=== PATIENT | male | born 1945 | race Caucasian/White ===

== ENCOUNTER → 2020-07-10 11:01 | Outpatient (BNVA) | payer MEDICARE, SELFPAY | PROVIDERS: PCP Internal Medicine; Referring Provider Internal Medicine; Visit Provider Internal Medicine | DX: I48.0 Paroxysmal atrial fibrillation (principal); Z51.81 Encounter for therapeutic drug level monitoring; Z79.01 Long term (current) use of anticoagulants | CPT/HCPCS: 85610; 99211 ==

== ENCOUNTER → 2020-07-31 10:59 | Outpatient (BNVA) | payer MEDICARE, SELFPAY | PROVIDERS: PCP Internal Medicine; Visit Provider Internal Medicine | DX: I48.0 Paroxysmal atrial fibrillation (principal); Z51.81 Encounter for therapeutic drug level monitoring; Z79.01 Long term (current) use of anticoagulants | CPT/HCPCS: 85610; 99211 ==

== ENCOUNTER → 2020-08-15 10:48 | Outpatient (BNVA) | payer MEDICARE, SELFPAY | PROVIDERS: PCP Internal Medicine; Referring Provider Internal Medicine; Visit Provider Internal Medicine | DX: I48.0 Paroxysmal atrial fibrillation (principal); Z79.01 Long term (current) use of anticoagulants; Z51.81 Encounter for therapeutic drug level monitoring | CPT/HCPCS: 85610 ==

== ENCOUNTER → 2020-08-29 10:56 | Outpatient (BNVA) | payer MEDICARE, SELFPAY | PROVIDERS: PCP Internal Medicine; Visit Provider Internal Medicine | DX: I48.0 Paroxysmal atrial fibrillation (principal); Z51.81 Encounter for therapeutic drug level monitoring; Z79.01 Long term (current) use of anticoagulants | CPT/HCPCS: 85610; 99211 ==

== ENCOUNTER 2020-09-11 09:01 | Outpatient (REF) | payer MEDICARE, SELFPAY ==
--- NOTE | 2020-09-11 | US_ITS ---
EXAMINATION: US ABDOMINAL AORTIC CLINICAL INFORMATION: Abdominal aortic aneurysm COMPARISON: CTA abdomen and pelvis on 08/27/2019 TECHNIQUE: Real-time ultrasound and Doppler techniques (integrating B-mode 2-D vascular images, Doppler spectral analysis and color flow Doppler imaging) were utilized to interrogate the abdominal aorta. FINDINGS: Proximal aorta: 2.9 cm AP; 3.2 cm transverse. Middle aorta: 2.1 cm AP; 2.3 cm transverse. Distal aorta: 4.1 cm AP; 4.6 cm transverse. Right common iliac artery: 1.4 x 1.5 cm. Left common iliac artery: 1. 6 x 1.8 cm ADDITIONAL FINDINGS: There is moderate atherosclerotic disease of the abdominal aorta. US/US abdominal aortic aneurysm IMPRESSION: Infrarenal abdominal aortic aneurysm measuring up to 4.6 cm. The aneurysm appears increased in size when compared to the prior CTA, however this may be due to differences in technique. Recommend CTA or MRA for further evaluation. Urgent findings were related to the referring office.
== END 2020-09-11 09:02 | disposition home or self-care (01) ==
LOC: HO.US 09:01
PROVIDERS: PCP Internal Medicine; Visit Provider Surgery Vascular Surgery
DX: I71.4 Abdominal aortic aneurysm, without rupture (principal)
CPT/HCPCS: 76706

== ENCOUNTER → 2020-09-18 10:51 | Outpatient (BNVA) | payer MEDICARE, SELFPAY | PROVIDERS: PCP Internal Medicine; Referring Provider Internal Medicine; Visit Provider Surgery Vascular Surgery | DX: I71.4 Abdominal aortic aneurysm, without rupture (principal) | CPT/HCPCS: Q3014 ==

== ENCOUNTER → 2020-09-26 14:15 | Outpatient (BNVA) | payer MEDICARE, SELFPAY | PROVIDERS: PCP Internal Medicine; Visit Provider Internal Medicine | DX: I48.0 Paroxysmal atrial fibrillation (principal); Z51.81 Encounter for therapeutic drug level monitoring; Z79.01 Long term (current) use of anticoagulants | CPT/HCPCS: 85610; 99211 ==

== ENCOUNTER → 2021-02-12 10:50 | Outpatient (BNVA) | payer MEDICARE, SELFPAY | PROVIDERS: PCP Internal Medicine; Visit Provider Internal Medicine | DX: I48.0 Paroxysmal atrial fibrillation (principal); Z79.01 Long term (current) use of anticoagulants; Z51.81 Encounter for therapeutic drug level monitoring | CPT/HCPCS: 85610; 99211 ==

== ENCOUNTER → 2021-03-26 10:49 | Outpatient (BNVA) | payer MEDICARE, SELFPAY | PROVIDERS: PCP Internal Medicine; Visit Provider Internal Medicine | DX: I48.0 Paroxysmal atrial fibrillation (principal); Z51.81 Encounter for therapeutic drug level monitoring; Z79.01 Long term (current) use of anticoagulants | CPT/HCPCS: 85610; 99211 ==

== ENCOUNTER 2021-03-31 09:50 | Outpatient (REF) | payer MEDICARE, SELFPAY ==
--- NOTE | ~2021-03-31 | US_ITS ---
EXAMINATION: US RETROPERITONEAL LIMITED (AORTA) CLINICAL INFORMATION: EXAMINATION: US RETROPERITONEAL LIMITED (AORTA) CLINICAL INFORMATION: Abdominal aortic aneurysm without rupture. COMPARISON: Ultrasound aorta 09/11/2020. TECHNIQUE: Adams-scale, color Doppler and spectral Doppler evaluation of the abdominal aorta. FINDINGS: The proximal abdominal Limited evaluation. The measurements of the aorta in maximum AP and transverse dimensions respectively are as follows: Proximal: 2.8 cm (AP). Mid: 2.9 x 2.1 cm. Distal: 4.1 x 4.1 cm. Previous 4.1 x 4.6 cm. PSV: 41.0 cm/sec. The measurements of the common iliac arteries in maximum dimensions are as follows: Right: AP: 1.5 cm. TRV: 2.0 cm. Left: AP: 1.8 cm. TRV: 1.5 cm. US/US abdominal aortic aneurysm IMPRESSION: Mild atherosclerotic dilation of the distal abdominal aorta measuring 4.1 x 4.1 cm. Previously it measured 4.1 x 4.6 cm.
== END 2021-03-31 09:51 | disposition home or self-care (01) ==
LOC: HO.US 09:50
PROVIDERS: Visit Provider Surgery Vascular Surgery
DX: I71.4 Abdominal aortic aneurysm, without rupture (principal)
CPT/HCPCS: 76706

== ENCOUNTER → 2021-04-14 12:50 | Outpatient (BNVA) | payer MEDICARE, SELFPAY | PROVIDERS: PCP Internal Medicine; Visit Provider Surgery Vascular Surgery | DX: I71.4 Abdominal aortic aneurysm, without rupture (principal); I48.0 Paroxysmal atrial fibrillation; Z79.01 Long term (current) use of anticoagulants | CPT/HCPCS: 99212 ==

== ENCOUNTER → 2021-04-30 10:53 | Outpatient (BNVA) | payer MEDICARE, SELFPAY | PROVIDERS: PCP Internal Medicine; Visit Provider Internal Medicine | DX: I48.0 Paroxysmal atrial fibrillation (principal); Z51.81 Encounter for therapeutic drug level monitoring; Z79.01 Long term (current) use of anticoagulants | CPT/HCPCS: 85610; 99211 ==

== ENCOUNTER → 2021-06-09 10:36 | Outpatient (BNVA) | payer MEDICARE, SELFPAY | PROVIDERS: PCP Internal Medicine; Visit Provider Internal Medicine | DX: I48.0 Paroxysmal atrial fibrillation (principal); Z51.81 Encounter for therapeutic drug level monitoring; Z79.01 Long term (current) use of anticoagulants | CPT/HCPCS: 85610; 99211 ==

== ENCOUNTER → 2021-07-14 10:55 | Outpatient (BNVA) | payer MEDICARE, SELFPAY | PROVIDERS: PCP Internal Medicine; Visit Provider Internal Medicine | DX: I48.0 Paroxysmal atrial fibrillation (principal); Z51.81 Encounter for therapeutic drug level monitoring; Z79.01 Long term (current) use of anticoagulants | CPT/HCPCS: 85610; 99211 ==

== ENCOUNTER → 2021-08-25 10:47 | Outpatient (BNVA) | payer MEDICARE, SELFPAY | PROVIDERS: PCP Internal Medicine; Visit Provider Internal Medicine | DX: I48.0 Paroxysmal atrial fibrillation (principal); Z51.81 Encounter for therapeutic drug level monitoring; Z79.01 Long term (current) use of anticoagulants | CPT/HCPCS: 85610; 99211 ==

== ENCOUNTER → 2021-09-22 10:50 | Outpatient (BNVA) | payer MEDICARE, SELFPAY | PROVIDERS: PCP Internal Medicine; Visit Provider Internal Medicine | DX: I48.0 Paroxysmal atrial fibrillation (principal); Z51.81 Encounter for therapeutic drug level monitoring; Z79.01 Long term (current) use of anticoagulants | CPT/HCPCS: 85610; 99211 ==

== ENCOUNTER → 2021-10-20 10:50 | Outpatient (BNVA) | payer MEDICARE, SELFPAY | PROVIDERS: PCP Internal Medicine; Visit Provider Internal Medicine | DX: I48.0 Paroxysmal atrial fibrillation (principal); Z51.81 Encounter for therapeutic drug level monitoring; Z79.01 Long term (current) use of anticoagulants | CPT/HCPCS: 85610; 99211 ==

== ENCOUNTER → 2022-01-27 11:30 | Outpatient (BNVA) | payer MEDICARE, SELFPAY | PROVIDERS: PCP Internal Medicine; Visit Provider Internal Medicine | DX: I48.0 Paroxysmal atrial fibrillation (principal); Z79.01 Long term (current) use of anticoagulants; Z51.81 Encounter for therapeutic drug level monitoring | CPT/HCPCS: 85610; 99211 ==

== ENCOUNTER → 2022-03-10 10:54 | Outpatient (BNVA) | payer MEDICARE, SELFPAY | PROVIDERS: PCP Internal Medicine; Visit Provider Internal Medicine | DX: I48.0 Paroxysmal atrial fibrillation (principal); Z79.01 Long term (current) use of anticoagulants; Z51.81 Encounter for therapeutic drug level monitoring | CPT/HCPCS: 85610; 99211 ==

== ENCOUNTER → 2022-04-16 10:42 | Outpatient (BNVA) | payer MEDICARE, SELFPAY | PROVIDERS: PCP Internal Medicine; Visit Provider Internal Medicine | DX: I48.0 Paroxysmal atrial fibrillation (principal); Z51.81 Encounter for therapeutic drug level monitoring; Z79.01 Long term (current) use of anticoagulants | CPT/HCPCS: 85610; 99211 ==

== ENCOUNTER 2022-04-30 16:11 | Outpatient (REF) | payer MEDICARE, SELFPAY ==
--- NOTE | ~2022-04-30 | US_ITS ---
EXAMINATION: US RETROPERITONEAL LIMITED (AORTA) CLINICAL INFORMATION: Abdominal aortic aneurysm, without rupture. COMPARISON: Ultrasound retroperitoneal limited (aorta) 03/31/2021 and 09/11/2020. TECHNIQUE: Adams-scale, color Doppler and spectral Doppler evaluation of the abdominal aorta. FINDINGS: The measurements of the aorta in maximum AP and transverse dimensions respectively are as follows: Proximal: 3.4 x 2.4 cm. Previously measuring 2.9 x 3.2 cm (September 11, 2020) Mid: 2.3 x 2.8 cm. Previous 2.9 x 2.1 cm Distal: 4.0 x 4.0 cm. Previous 4.1 x 4.1 cm PSV: 41.9 cm/s. The measurements of the common iliac arteries in maximum AP and TRV dimensions are as follows: Right Common Iliac Artery: 1.5 x 2.0 cm. Previous 1.5 x 2.0 cm Left Common Iliac Artery: 2.0 x 2.3 cm. Previous 1.8 x 1.5 cm US/US abdominal aortic aneurysm IMPRESSION: 1. Overall stable size of an abdominal aortic aneurysm measuring up to 4 cm. 2. 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 3. Stable right common iliac artery aneurysm.
== END 2022-04-30 16:12 | disposition home or self-care (01) ==
LOC: HO.US 16:11
PROVIDERS: Visit Provider Surgery Vascular Surgery
DX: I71.4 Abdominal aortic aneurysm, without rupture (principal)
CPT/HCPCS: 76706

== ENCOUNTER → 2022-05-14 10:52 | Outpatient (BNVA) | payer MEDICARE, SELFPAY | PROVIDERS: PCP Internal Medicine; Visit Provider Internal Medicine | DX: I48.0 Paroxysmal atrial fibrillation (principal); Z79.01 Long term (current) use of anticoagulants; Z51.81 Encounter for therapeutic drug level monitoring | CPT/HCPCS: 85610; 99211 ==

== ENCOUNTER → 2022-06-24 10:47 | Outpatient (BNVA) | payer MEDICARE, SELFPAY | PROVIDERS: PCP Internal Medicine; Visit Provider Internal Medicine | DX: I48.0 Paroxysmal atrial fibrillation (principal); Z51.81 Encounter for therapeutic drug level monitoring; Z79.01 Long term (current) use of anticoagulants | CPT/HCPCS: 85610; 99211 ==

== ENCOUNTER → 2022-07-02 10:50 | Outpatient (BNVA) | payer MEDICARE, SELFPAY | PROVIDERS: PCP Internal Medicine; Visit Provider Internal Medicine | DX: I48.0 Paroxysmal atrial fibrillation (principal); Z79.01 Long term (current) use of anticoagulants; Z51.81 Encounter for therapeutic drug level monitoring | CPT/HCPCS: 85610; 99211 ==

== ENCOUNTER → 2022-07-06 15:01 | Outpatient (BNVA) | payer MEDICARE, SELFPAY | PROVIDERS: PCP Internal Medicine; Visit Provider Surgery Vascular Surgery | DX: I71.4 Abdominal aortic aneurysm, without rupture (principal) | CPT/HCPCS: 99212 ==

== ENCOUNTER → 2022-07-30 10:57 | Outpatient (BNVA) | payer MEDICARE, SELFPAY | PROVIDERS: PCP Internal Medicine; Visit Provider Internal Medicine | DX: I48.0 Paroxysmal atrial fibrillation (principal); Z79.01 Long term (current) use of anticoagulants; Z51.81 Encounter for therapeutic drug level monitoring | CPT/HCPCS: 85610; 99211 ==

== ENCOUNTER → 2022-08-27 10:50 | Outpatient (BNVA) | payer MEDICARE, SELFPAY | PROVIDERS: PCP Internal Medicine; Visit Provider Internal Medicine | DX: I48.0 Paroxysmal atrial fibrillation (principal); Z79.01 Long term (current) use of anticoagulants; Z51.81 Encounter for therapeutic drug level monitoring | CPT/HCPCS: 85610; 99211 ==

== ENCOUNTER → 2022-09-28 13:30 | Outpatient (BNVA) | payer MEDICARE, SELFPAY | PROVIDERS: PCP Internal Medicine; Visit Provider Internal Medicine | DX: I48.0 Paroxysmal atrial fibrillation (principal); Z51.81 Encounter for therapeutic drug level monitoring; Z79.01 Long term (current) use of anticoagulants | CPT/HCPCS: 85610; 99211 ==

== ENCOUNTER → 2023-01-10 11:28 | Outpatient (BNVA) | payer MEDICARE, SELFPAY | PROVIDERS: PCP Internal Medicine; Visit Provider Internal Medicine | DX: I48.20 Chronic atrial fibrillation, unspecified (principal); Z79.01 Long term (current) use of anticoagulants; Z51.81 Encounter for therapeutic drug level monitoring | CPT/HCPCS: 85610; 99211 ==

== ENCOUNTER → 2023-02-14 11:32 | Outpatient (BNVA) | payer MEDICARE, SELFPAY | PROVIDERS: PCP Internal Medicine; Visit Provider Internal Medicine | DX: I48.0 Paroxysmal atrial fibrillation (principal); Z79.01 Long term (current) use of anticoagulants; Z51.81 Encounter for therapeutic drug level monitoring | CPT/HCPCS: 85610; 99211 ==

== ENCOUNTER → 2023-03-28 11:28 | Outpatient (BNVA) | payer MEDICARE, SELFPAY | PROVIDERS: PCP Internal Medicine; Visit Provider Internal Medicine | DX: I48.0 Paroxysmal atrial fibrillation (principal); Z79.01 Long term (current) use of anticoagulants; Z51.81 Encounter for therapeutic drug level monitoring | CPT/HCPCS: 85610; 99211 ==

== ENCOUNTER 2023-04-18 11:30 | Outpatient (AMB) | payer MEDICARE, SELFPAY ==
--- NOTE | 2023-04-18 11:41 | MHC.OFFVISCO ---
Intake Intake Visit Reasons: Anticoagulation Allergies No Known Allergies Allergy (Verified 04/18/23 11:38) Medication List - Last Reconciled 04/18/23 by Caterina Goldstein RN hydrochlorothiazide 25 mg PO DAILY lisinopril 5 mg PO DAILY metformin 1,000 mg PO metoprolol tartrate mg PO omeprazole 20 mg PO DAILY pioglitazone 30 mg PO DAILY simvastatin 40 mg PO DAILY sitagliptin phosphate (Januvia) 100 mg PO DAILY warfarin 5 mg See Protocol PO DAILY Nursing Note INR 3.2-?? out of therapeutic range Medications and supplements reviewed Patient status: no c.o Medications or supplements: no changes Diet: same Denies any signs and symptoms of bleeding or clotting or unusual bruising Bleeding, bruising, clotting discussed Nutritional guidance given: eat greens to lower inr and increase greens in weekly diet Dose: 5mg x 6, 7.5mg x 1 F/U INR Date : pt ref earlier appt than 4 weeks? Patient verbalizing understanding of instructions given. 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
[2023-04-19 15:40] LABS: Prothrombin Time Whole Bld POC 38.7 sec (11.1-13.5); ~PT, ~INR - Anti Coag Clinic 3.2 (0.9-1.1)
== END 2023-04-18 11:49 | disposition home or self-care (01) ==
LOC: HO.ACS 11:30
PROVIDERS: PCP Internal Medicine; Visit Provider Internal Medicine
DX: Z79.01 Long term (current) use of anticoagulants (principal)

== ENCOUNTER → 2023-04-18 11:30 | Outpatient (BNVA) | payer MEDICARE, SELFPAY | PROVIDERS: PCP Internal Medicine; Visit Provider Internal Medicine | DX: I48.0 Paroxysmal atrial fibrillation (principal); Z79.01 Long term (current) use of anticoagulants; Z51.81 Encounter for therapeutic drug level monitoring | CPT/HCPCS: 85610; 99211 ==

== ENCOUNTER 2023-05-16 11:28 | Outpatient (AMB) | payer MEDICARE, SELFPAY ==
[2023-05-16 11:45] LABS: Prothrombin Time Whole Bld POC 32.8 sec (11.1-13.5); ~PT, ~INR - Anti Coag Clinic 2.7 (0.9-1.1)
--- NOTE | 2023-05-16 11:45 | MHC.OFFVISCO ---
Intake Intake Visit Reasons: Anticoagulation Allergies No Known Allergies Allergy (Verified 05/16/23 11:38) Medication List - Last Reconciled 05/16/23 by Irlanda Locke RN hydrochlorothiazide 25 mg PO DAILY lisinopril 5 mg PO DAILY metformin 1,000 mg PO metoprolol tartrate mg PO omeprazole 20 mg PO DAILY pioglitazone 30 mg PO DAILY simvastatin 40 mg PO DAILY sitagliptin phosphate (Januvia) 100 mg PO DAILY warfarin 5 mg See Protocol PO DAILY Nursing Note INR: 2.7 in therapeutic range Medications and supplements reviewed No changes in health, diet, medications, or supplements, pt was on an antbx and antiffungal med end of march beginning of april that may have delayed on set that elevated his previous INR values or may have been elevated due to heat of the summer diet, he decreased his dose x 1 month out of concern for his elevated number. it is recommended he return to his usual dose in 2 weeks as the summer diet changes Denies any signs and symptoms of bleeding or bruising or clotting. 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
== END 2023-05-16 12:04 | disposition home or self-care (01) ==
LOC: HO.ACS 11:28
PROVIDERS: PCP Internal Medicine; Visit Provider Internal Medicine
DX: Z79.01 Long term (current) use of anticoagulants (principal)

== ENCOUNTER → 2023-05-16 11:28 | Outpatient (BNVA) | payer MEDICARE, SELFPAY | PROVIDERS: PCP Internal Medicine; Visit Provider Internal Medicine | DX: I48.0 Paroxysmal atrial fibrillation (principal); Z79.01 Long term (current) use of anticoagulants; Z51.81 Encounter for therapeutic drug level monitoring | CPT/HCPCS: 85610; 99211 ==

== ENCOUNTER 2023-06-23 08:48 | Outpatient (REF) | payer MEDICARE, SELFPAY ==
--- NOTE | ~2023-06-23 | US_ITS ---
EXAMINATION: US RETROPERITONEAL LIMITED (AORTA) CLINICAL INFORMATION: Abdominal aortic aneurysm without rupture. COMPARISON: Ultrasound aorta 04/30/2022 and 03/31/2021. TECHNIQUE: Adams-scale, color Doppler and spectral Doppler evaluation of the abdominal aorta. FINDINGS: There is mild atherosclerotic calcifications. The measurements of the aorta in maximum AP and transverse dimensions respectively are as follows: Proximal: 2.9 x 3.1 cm. Prior: 3.4 x 2.4 cm. Mid: 2.4 x 1.9 cm. Prior: 2.3 x 2.8 cm. Distal: 4.2 x 4.3 cm. Prior: 4.0 x 4.0 cm. PSV: 46.4 cm/s. The measurements of the common iliac arteries in maximum AP and TRV dimensions are as follows: Right Common Iliac Artery: 1.7 x 1.9 cm. Prior: 1.5 x 2.0 cm. Left Common Iliac Artery: 2.3 x 2.2 cm. Prior: 2.0 x 2.3 cm. US/US abdominal aortic aneurysm IMPRESSION: There is relatively stable aneurysmal dilatation of the abdominal aorta and bilateral common iliac arteries.
== END 2023-06-23 08:49 | disposition home or self-care (01) ==
LOC: HO.US 08:48
PROVIDERS: PCP Internal Medicine; Visit Provider Surgery Vascular Surgery
DX: I71.40 Abdominal aortic aneurysm, without rupture, unspecified (principal)
CPT/HCPCS: 76706

== ENCOUNTER 2023-06-27 11:33 | Outpatient (AMB) | payer MEDICARE, SELFPAY ==
[2023-06-27 11:44] LABS: Prothrombin Time Whole Bld POC 35.9 sec (11.1-13.5)
--- NOTE | 2023-06-27 11:48 | MHC.OFFVISCO ---
Intake Intake Visit Reasons: Anticoagulation Allergies No Known Allergies Allergy (Verified 06/27/23 11:39) Medication List - Last Reconciled 06/27/23 by Irlanda Locke RN hydrochlorothiazide 25 mg PO DAILY lisinopril 5 mg PO DAILY metformin 1,000 mg PO metoprolol tartrate mg PO omeprazole 20 mg PO DAILY pioglitazone 30 mg PO DAILY simvastatin 40 mg PO DAILY sitagliptin phosphate (Januvia) 100 mg PO DAILY warfarin 5 mg See Protocol PO DAILY Nursing Note INR: 3.0 in therapeutic range Medications and supplements reviewed No changes in health, diet, medications, or supplements, Denies any signs and symptoms of bleeding or bruising or clotting. Bleeding, bruising, clotting discussed Nutritional guidance given Dose: 7.5MG X 1 DAY/ 5MG X 6 DAYS F/U INR: 1 MONTH Patient verbalizes understanding of instructions given Anti-Coag Initial Assessment Social Hx Patient Tobacco Use Status: Former Tobacco user Quit Date: 1998 Coding Level of Care Code Est Patient Level 1 Diagnoses Current use of anticoagulant therapy Z79.01 Assessment & Plan Assessment & Plan (1) Current use of anticoagulant therapy: Code(s): Z79.01 - intermediate (current) use of anticoagulants Category: Medical
== END 2023-06-27 11:53 | disposition home or self-care (01) ==
LOC: HO.ACS 11:33
PROVIDERS: PCP Internal Medicine; Visit Provider Internal Medicine
DX: Z79.01 Long term (current) use of anticoagulants (principal)

== ENCOUNTER → 2023-06-27 11:33 | Outpatient (BNVA) | payer MEDICARE, SELFPAY | PROVIDERS: PCP Internal Medicine; Visit Provider Internal Medicine | DX: I48.0 Paroxysmal atrial fibrillation (principal); Z79.01 Long term (current) use of anticoagulants; Z51.81 Encounter for therapeutic drug level monitoring | CPT/HCPCS: 85610; 99211 ==

== ENCOUNTER 2023-07-14 15:05 | Outpatient (AMB) | payer MEDICARE, SELFPAY ==
--- NOTE | 2023-07-14 15:01 | MHC.OFFVIS ---
Intake Intake Visit Reasons: 1 yr follow up AAA US 06/23/23 Intake Note: pt here for a 1 year FU of AAA US on 06/23/23 Pt says he has no issues today and nothing that concerns him at the moment Accompanied by: Spouse Allergies No Known Allergies Allergy (Verified 07/14/23 15:09) HPI 1 yr follow up AAA US 06/23/23 HPI Details Very pleasant 78-year-old gentleman presents for follow-up regarding aortic and iliac artery aneurysm surveillance. He has had no interval issues. He did report that he does have some rectal bleeding but other than that no other issues. He now presents for surveillance ultrasound follow-up. [facility] Medical History Diabetes Social History Patient Tobacco Use Status: Former Tobacco user Quit Date: 1998 Review of Systems Const All systems reviewed & are unremarkable except as noted in HPI and below Reports no additional complaints ENT Reports Normal hearing present Card Denies chest pain, Denies chest pain at rest, Denies chest pain with activity and Denies pedal edema Resp Denies cough GI Denies abdominal pain Musc Denies abnormal gait, Denies muscle cramps and Denies radiating pain into limb Skin/Breast Denies skin ulcer and Denies wounds Neuro Reports Normal hearing present and Denies abnormal gait Psych Reports no additional complaints Physical Exam Const General: cooperative, healthy appearing and comfortable Orientation/consciousness: oriented to person, oriented to place and oriented to time HEENT Head: Yes normal to inspection Neck Neck: Yes normal visual inspection Carotids: no bruits Chest Chest palpation & inspection: normal inspection of the chest Resp Effort & Inspection: normal respiratory effort and able to speak in complete sentences Auscultation: clear to auscultation bilaterally, no crackles, no rales, no rhonchi and no wheezes Cardio Rate: regular rate Rhythm: regular rhythm Heart sounds: S1 normal heart sound present and S2 normal heart sound present Bruits: no carotid bruits Peripheral pulses: Peripheral pulses 2+ throughout GI Inspection: Yes normal to inspection Skin Wounds: no wounds Hair: normal Neuro General: oriented to person, oriented to place and oriented to time Cranial nerves: Yes CN's II-XII intact bilaterally and Yes Normal hearing present Cognition (Neuro): normal cognition Motor exam (neuro): 5/5 motor strength present throughout Extrem Other: venous exam: No significant superficial varicosities or spider telangiectasias, minimal edema General: No clubbing, No cyanosis and No edema Psych Appearance: grossly normal Mental Status: mental status grossly normal Speech and movement: Normal speech and movement present Results Reviewed Results Reviewed: Arterial ultrasound dated 06/23/2023 demonstrates 4.2 cm AAA and Left iliac 2.3 cm Assessment & Plan Assessment & Plan (1) AAA (abdominal aortic aneurysm) without rupture: Code(s): I71.4 - Abdominal aortic aneurysm, without rupture Qualifiers: Abdominal aorta location: infrarenal aorta Qualified Code(s): I71.43 - Infrarenal abdominal aortic aneurysm, without rupture Plan: In short patient has radiologic evidence of a AAA and iliac aneurysm on ultrasound . We have discussed the pathophysiology of aortic aneurysms and the risk of ruptures. We have discussed rupture risk based on size. In addition we have discussed conservative measures and risk factor modification for prevention of increase in size of the aneurysm. the patient is scheduled for surveillance follow-up in approximately 1 year. Thank you for allowing us to participate in the care of this patient Orders: Orders US abdominal aortic aneurysm 364 Days I71.43 - Infrarenal abdominal aortic aneurysm, without rupture Coding Level of Care Code Est Pt Level 4 (37193) Diagnoses Infrarenal abdominal aortic aneurysm (AAA) without rupture I71.43 Abdominal aorta location: infrarenal aorta
== END 2023-07-14 15:46 | disposition home or self-care (01) ==
PROVIDERS: PCP Internal Medicine; Visit Provider Surgery Vascular Surgery
DX: I71.43 Infrarenal abdominal aortic aneurysm, without rupture (principal); I72.3 Aneurysm of iliac artery
CPT/HCPCS: 99213

== ENCOUNTER → 2023-07-14 15:05 | Outpatient (BNVA) | payer MEDICARE, SELFPAY | PROVIDERS: PCP Internal Medicine; Visit Provider Surgery Vascular Surgery | DX: I71.43 Infrarenal abdominal aortic aneurysm, without rupture (principal) | CPT/HCPCS: 99212 ==

== ENCOUNTER 2023-07-25 11:14 | Outpatient (AMB) | payer MEDICARE, SELFPAY ==
[2023-07-25 11:21] LABS: Prothrombin Time Whole Bld POC 42.4 sec (11.1-13.5); ~PT, ~INR - Anti Coag Clinic 3.5 (0.9-1.1)
--- NOTE | 2023-07-25 11:36 | MHC.OFFVISCO ---
Intake Intake Visit Reasons: Anticoagulation Allergies No Known Allergies Allergy (Verified 07/25/23 11:15) Medication List - Last Reconciled 07/25/23 by Irlanda Locke RN hydrochlorothiazide 25 mg PO DAILY lisinopril 5 mg PO DAILY metformin 1,000 mg PO metoprolol tartrate mg PO omeprazole 20 mg PO DAILY pioglitazone 30 mg PO DAILY simvastatin 40 mg PO DAILY sitagliptin phosphate (Januvia) 100 mg PO DAILY warfarin 5 mg See Protocol PO DAILY Nursing Note INR 3.5 out of therapeutic range Medications and supplements reviewed Patient status: HAS BEEN ILL, HAS NOT EATEN USUAL DIET, TO HAVE CATARACT SURGERY IN NEAR FUTURE Medications or supplements: NO CHANGES Diet: APPETITE GOOD, EATING OUT DUE TO NOT FEELING WELL Denies any signs and symptoms of bleeding or clotting or unusual bruising Bleeding, bruising, clotting discussed Nutritional guidance given: RESUME COOKED GREENS WEEKLY Dose: 2.5MG TODAY THEN RESUME USUAL DOSE 5MG X 6DAYS/ 7.5MG X 1 DAY, WITH WEEKLY GREENS F/U INR Date : 4 WEEKS PER PT REQUEST?? 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
== END 2023-07-25 11:39 | disposition home or self-care (01) ==
LOC: HO.ACS 11:14
PROVIDERS: PCP Internal Medicine; Visit Provider Internal Medicine
DX: Z79.01 Long term (current) use of anticoagulants (principal)

== ENCOUNTER → 2023-07-25 11:14 | Outpatient (BNVA) | payer MEDICARE, SELFPAY | PROVIDERS: PCP Internal Medicine; Visit Provider Internal Medicine | DX: I48.0 Paroxysmal atrial fibrillation (principal); Z79.01 Long term (current) use of anticoagulants; Z51.81 Encounter for therapeutic drug level monitoring | CPT/HCPCS: 85610; 99211 ==

== ENCOUNTER 2023-08-22 11:17 | Outpatient (AMB) | payer MEDICARE, SELFPAY ==
--- NOTE | 2023-08-22 11:33 | MHC.OFFVISCO ---
Intake Intake Visit Reasons: Anticoagulation Allergies No Known Allergies Allergy (Verified 08/22/23 11:30) Medication List - Last Reconciled 08/22/23 by Caterina Goldstein RN hydrochlorothiazide 25 mg PO DAILY lisinopril 5 mg PO DAILY metformin 1,000 mg PO metoprolol tartrate mg PO omeprazole 20 mg PO DAILY pioglitazone 30 mg PO DAILY simvastatin 40 mg PO DAILY sitagliptin phosphate (Januvia) 100 mg PO DAILY warfarin 5 mg See Protocol PO DAILY Nursing Note INR: 3.0- in therapeutic range of 2-3 Medications and supplements reviewed- no changes No changes in health, diet, medications, or supplements, Denies any signs and symptoms of bleeding or bruising or clotting. Bleeding, bruising, clotting discussed Nutritional guidance given - eat a green today Dose: 5mg x 6, 7.5mg x 1 F/U INR: pt req 4 weeks Patient verbalizes understanding of instructions given pt had cataract surgery on left eye last 08/18/23,held warfarin one day prior, he states inr 2.7 day of proc Anti-Coag Initial Assessment Social Hx Patient Tobacco Use Status: Former Tobacco user Quit Date: 1998 Coding Level of Care Code Est Patient Level 1 Diagnoses Current use of anticoagulant therapy Z79.01 Results AMB INR Fingerstick AMB INR Fingerstick 3.0 Last Edit by Caterina Goldstein RN on 08/22/23 11:36 Assessment & Plan Assessment & Plan (1) Current use of anticoagulant therapy: 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
[2023-08-25 13:33] LABS: Prothrombin Time Whole Bld POC 36.4 sec (11.1-13.5)
== END 2023-08-22 11:39 | disposition home or self-care (01) ==
LOC: HO.ACS 11:17
PROVIDERS: PCP Internal Medicine; Visit Provider Internal Medicine
DX: Z79.01 Long term (current) use of anticoagulants (principal)

== ENCOUNTER → 2023-08-22 11:17 | Outpatient (BNVA) | payer MEDICARE, SELFPAY | PROVIDERS: PCP Internal Medicine; Visit Provider Internal Medicine | DX: I48.0 Paroxysmal atrial fibrillation (principal); Z79.01 Long term (current) use of anticoagulants; Z51.81 Encounter for therapeutic drug level monitoring | CPT/HCPCS: 85610; 99211 ==

== ENCOUNTER 2023-09-19 11:29 | Outpatient (AMB) | payer MEDICARE, SELFPAY ==
--- NOTE | 2023-09-19 11:34 | MHC.OFFVISCO ---
Intake Intake Visit Reasons: Anticoagulation Allergies No Known Allergies Allergy (Verified 09/19/23 11:31) Medication List - Last Reconciled 09/19/23 by Caterina Goldstein RN hydrochlorothiazide 25 mg PO DAILY lisinopril 5 mg PO DAILY metformin 1,000 mg PO metoprolol tartrate mg PO omeprazole 20 mg PO DAILY pioglitazone 30 mg PO DAILY simvastatin 40 mg PO DAILY sitagliptin phosphate (Januvia) 100 mg PO DAILY warfarin 5 mg See Protocol PO DAILY Nursing Note INR 1.8-?? out of therapeutic range of 2-3 Medications and supplements reviewed Patient status: no c.o- pt states missed a dose last tuesday- pt thought he was having a surg- boil on buttocks but did not have the surg- pt cancelled Medications or supplements: no changes Diet: same Denies any signs and symptoms of bleeding or clotting or unusual bruising Bleeding, bruising, clotting discussed Nutritional guidance given: no greens for 2 days, eat reds to raise Dose: 7.5mg today then cont reg dosing 5mg x 5, 7.5mg x 1 F/U INR Date : pt ref earlier appt than 10/12/23?? Patient verbalizing understanding of instructions given. Anti-Coag Initial Assessment Social Hx Patient Tobacco Use Status: Former Tobacco user Quit Date: 1998 Coding Level of Care Code Est Patient Level 1 Diagnoses Current use of anticoagulant therapy Z79.01 Assessment & Plan Assessment & Plan (1) Current use of anticoagulant therapy: Code(s): Z79.01 - intermediate (current) use of anticoagulants Category: Medical
[2023-09-19 11:35] LABS: Prothrombin Time Whole Bld POC 21.5 sec (11.1-13.5); ~PT, ~INR - Anti Coag Clinic 1.8 (0.9-1.1)
== END 2023-09-19 11:45 | disposition home or self-care (01) ==
LOC: HO.ACS 11:29
PROVIDERS: PCP Internal Medicine; Visit Provider Internal Medicine
DX: Z79.01 Long term (current) use of anticoagulants (principal)

== ENCOUNTER → 2023-09-19 11:29 | Outpatient (BNVA) | payer MEDICARE, SELFPAY | PROVIDERS: PCP Internal Medicine; Visit Provider Internal Medicine | DX: I48.0 Paroxysmal atrial fibrillation (principal); Z79.01 Long term (current) use of anticoagulants; Z51.81 Encounter for therapeutic drug level monitoring | CPT/HCPCS: 85610; 99211 ==

== ENCOUNTER 2023-10-12 11:33 | Outpatient (AMB) | payer MEDICARE, SELFPAY ==
--- NOTE | 2023-10-12 11:45 | MHC.OFFVISCO ---
Intake Intake Visit Reasons: Anticoagulation Allergies No Known Allergies Allergy (Verified 10/12/23 11:34) Medication List - Last Reconciled 10/12/23 by Linda Mina RN hydrochlorothiazide 25 mg PO DAILY lisinopril 5 mg PO DAILY metformin 1,000 mg PO metoprolol tartrate mg PO omeprazole 20 mg PO DAILY pioglitazone 30 mg PO DAILY simvastatin 40 mg PO DAILY sitagliptin phosphate (Januvia) 100 mg PO DAILY warfarin 5 mg See Protocol PO DAILY Nursing Note NO CP,SOB,DIET/MED CHANGES,FALLS OR SX OF BLEEDING. CONTINUE PRESENT DOSE AND FOLLOW-UP IN [place]. PT.WILL CALL FOR APPT.HERE WHEN HE RETURNS IN JANUARY. GOOD UNDERSTANDING VERB. 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
== END 2023-10-12 11:52 | disposition home or self-care (01) ==
LOC: HO.ACS 11:33
PROVIDERS: PCP Internal Medicine; Visit Provider Internal Medicine
DX: Z79.01 Long term (current) use of anticoagulants (principal)

== ENCOUNTER → 2023-10-12 11:33 | Outpatient (BNVA) | payer MEDICARE, SELFPAY | PROVIDERS: PCP Internal Medicine; Visit Provider Internal Medicine | DX: I48.0 Paroxysmal atrial fibrillation (principal); Z51.81 Encounter for therapeutic drug level monitoring; Z79.01 Long term (current) use of anticoagulants | CPT/HCPCS: 85610; 99211 ==

== ENCOUNTER 2024-01-11 10:57 | Outpatient (AMB) | payer MEDICARE, SELFPAY ==
--- NOTE | 2024-01-11 11:09 | MHC.OFFVISCO ---
Intake Intake Visit Reasons: Anticoagulation Allergies No Known Allergies Allergy (Verified 01/11/24 11:06) Medication List - Last Reconciled 01/11/24 by Caterina Goldstein RN hydrochlorothiazide 25 mg PO DAILY lisinopril 5 mg PO DAILY metformin 1,000 mg PO metoprolol tartrate mg PO omeprazole 20 mg PO DAILY pioglitazone 30 mg PO DAILY simvastatin 40 mg PO DAILY sitagliptin phosphate (Januvia) 100 mg PO DAILY warfarin 5 mg See Protocol PO DAILY Nursing Note INR: 2.5- in therapeutic range of 2-3 Medications and supplements reviewed No changes in health, diet, medications, or supplements, Denies any signs and symptoms of bleeding or bruising or clotting. Bleeding, bruising, clotting discussed Nutritional guidance given Dose: 5mg x 6, 7.5mg x 1 F/U INR: pt req 6 weeks Patient verbalizes understanding of instructions given pt returned from [place] last week, did not have inr check in [facility] Anti-Coag Initial Assessment Social Hx Patient Tobacco Use Status: Former Tobacco user Quit Date: 1998 Coding Level of Care Code Est Patient Level 1 Diagnoses Current use of anticoagulant therapy Z79.01 Results AMB INR Fingerstick AMB INR Fingerstick 2.5 Last Edit by Caterina Goldstein RN on 01/11/24 11:10 Assessment & Plan Assessment & Plan (1) Current use of anticoagulant therapy: Code(s): 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
[2024-01-11 11:17] LABS: Prothrombin Time Whole Bld POC 30.2 sec (11.1-13.5); ~PT, ~INR - Anti Coag Clinic 2.5 (0.9-1.1)
== END 2024-01-11 11:42 | disposition home or self-care (01) ==
LOC: HO.ACS 10:57
PROVIDERS: PCP Internal Medicine; Visit Provider Internal Medicine
DX: Z79.01 Long term (current) use of anticoagulants (principal)

== ENCOUNTER → 2024-01-11 10:57 | Outpatient (BNVA) | payer MEDICARE, SELFPAY | PROVIDERS: PCP Internal Medicine; Visit Provider Internal Medicine | DX: I48.0 Paroxysmal atrial fibrillation (principal); Z51.81 Encounter for therapeutic drug level monitoring; Z79.01 Long term (current) use of anticoagulants | CPT/HCPCS: 85610; 99211 ==

== ENCOUNTER 2024-02-13 13:33 | Outpatient (AMB) | payer MEDICARE, SELFPAY ==
--- NOTE | 2024-02-13 13:35 | MHC.OFFVIS ---
Vital Signs 02/13/24 13:47 Weight 247 lb BP 125/7 L Blood Pressure Location Rt brachial Position Sitting Pulse 91 Intake Visit Reasons: perianal abscess & fistula Intake Note: This patient presents for an assessment for perianal abscess & fistula. Patient c/o; perianal abscess &fistula. 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 He describes having this pimple like mass on the right buttock for about 8 months now. He said had a separate mass prior to that it had been drained next to the area He says that this other 1 has occasional drainage on enough that seemed to be bloody although scanty. He describes some swelling as well He apparently had an MRI done in [place] which did not reveal any fistulous connection into the anus itself. He has history of atrial fibrillation and is on Coumadin. [facility]LY [facility] Medical History (Updated 02/13/24 @ 14:15 by Xavi Deleon MD) On Coumadin for atrial fibrillation Atrial fibrillation Perianal fistula Diabetes Social History Patient Tobacco Use Status: Former Tobacco user Quit Date: 1998 Review of Systems Const Denies chills and Denies fever(s) Card Denies chest pain, Denies dyspnea and Denies dyspnea on exertion Resp Denies cough, Denies dyspnea and Denies dyspnea on exertion GI Denies hematochezia and Denies change in bowel habits Denies hematuria and Denies difficulty urinating Musc Denies back pain and Denies limited range of motion Neuro Denies focal weakness and Denies convulsions Psych Denies depression and Denies mood swings Physical Exam Vital Signs: Last Vital Signs Pulse 91 02/13/24 13:47 BP 125/7 L 02/13/24 13:47 Const Other: Appears morbidly obese General: comfortable and no acute distress Orientation/consciousness: patient oriented x3 Neck Neck: Yes no lymphadenopathy Resp Auscultation: clear to auscultation bilaterally Cardio Rhythm: abnormal rhythm GI Other: Perianal area - note of what appears to be an induration with a sinus on the anterior perianal aspect of the buttock on the right side with induration extending to a separate dry sinus on the right perianal area more posterior to this. The indurated area seems about 4 cm long. 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 We will plan on looking for any fistulous tracts. I will probably open up this entire indurated area, and debride this subcutaneous fistula. I explained to the technique of this procedure. I reviewed the risks including but not limited to bleeding, infections and postop pain. He understands that he may have an open wound on the area and he will require good wound care for this In the meantime, we will have him repeat his hemoglobin A1c as he says that this was 12 the last time this was checked. He understands that he will have to hold his Coumadin for 2-3 days prior to the procedure. His was with him during Coding Level of Care Code New Pt Level 3 (17059) Diagnoses Perianal fistula K60.3
[2024-02-13 13:47] VITALS: BP 125/7; PULSE 91
== END 2024-02-13 14:16 | disposition home or self-care (01) ==
PROVIDERS: PCP Internal Medicine; Referring Provider Internal Medicine; Visit Provider Surgery
DX: K60.3 Anal fistula (principal)
CPT/HCPCS: 99203

== ENCOUNTER → 2024-02-13 13:33 | Outpatient (BNVA) | payer MEDICARE, SELFPAY | PROVIDERS: PCP Internal Medicine; Referring Provider Internal Medicine; Visit Provider Surgery | DX: K60.3 Anal fistula (principal) | CPT/HCPCS: 99202 ==

== ENCOUNTER 2024-02-22 10:54 | Outpatient (AMB) | payer MEDICARE, SELFPAY ==
[2024-02-22 11:01] LABS: Prothrombin Time Whole Bld POC 21.5 sec (11.1-13.5); ~PT, ~INR - Anti Coag Clinic 1.8 (0.9-1.1)
--- NOTE | 2024-02-22 11:09 | MHC.OFFVISCO ---
Intake Intake Visit Reasons: Anticoagulation Allergies No Known Allergies Allergy (Verified 02/22/24 10:56) Medication List - Last Reconciled 02/22/24 by Linda Mina RN hydrochlorothiazide 25 mg PO DAILY lisinopril 5 mg PO DAILY metformin 1,000 mg PO metoprolol tartrate mg PO omeprazole 20 mg PO DAILY pioglitazone 30 mg PO DAILY simvastatin 40 mg PO DAILY sitagliptin phosphate (Januvia) 100 mg PO DAILY warfarin 5 mg See Protocol PO DAILY Nursing Note NO MISSED DOSES,CP,SOB,DIET/MED CHANGES,FALLS OR SX OF BLEEDING. BOOST TO 7.5MGM TODAY THEN RESUME USUAL DOSE AND FOLLOW-UP IN 3 WEEKS. NO GREENS 2 DAYS INCREASE REDS GOOD UNDERSTANDING OF DOSING INSTR. 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
== END 2024-02-22 11:11 | disposition home or self-care (01) ==
LOC: HO.ACS 10:54
PROVIDERS: PCP Internal Medicine; Visit Provider Internal Medicine
DX: Z79.01 Long term (current) use of anticoagulants (principal)

== ENCOUNTER → 2024-02-22 10:54 | Outpatient (BNVA) | payer MEDICARE, SELFPAY | PROVIDERS: PCP Internal Medicine; Visit Provider Internal Medicine | DX: I48.0 Paroxysmal atrial fibrillation (principal); Z79.01 Long term (current) use of anticoagulants; Z51.81 Encounter for therapeutic drug level monitoring | CPT/HCPCS: 85610; 99211 ==

== ENCOUNTER 2024-03-15 10:54 | Outpatient (AMB) | payer MEDICARE, SELFPAY ==
[2024-03-15 11:08] LABS: Prothrombin Time Whole Bld POC 34.2 sec (11.1-13.5); ~PT, ~INR - Anti Coag Clinic 2.8 (0.9-1.1)
--- NOTE | 2024-03-15 11:12 | MHC.OFFVISCO ---
Intake Intake Visit Reasons: Anticoagulation Allergies No Known Allergies Allergy (Verified 03/15/24 10:57) Medication List - Last Reconciled 03/15/24 by Latoya Bunn RN digoxin 250 mcg PO DAILY hydrochlorothiazide 25 mg PO DAILY insulin glargine (Lantus Solostar U-100 Insulin) 25 units subcut BEDTIME lisinopril 5 mg PO DAILY metformin 1,000 mg PO metoprolol succinate ER 200 mg PO DAILY omeprazole 20 mg PO DAILY pioglitazone 30 mg PO DAILY semaglutide (Ozempic) 0.25 mg subcut QWEEK simvastatin 40 mg PO DAILY sitagliptin phosphate (Januvia) 100 mg PO DAILY warfarin 5 mg See Protocol PO DAILY Nursing Note Pt to [facility] after a no show yesterday. States he thought his appt was today. INR: 2.8 in therapeutic range of 2-3 Medications and supplements reviewed. Started on Ozempic and digoxin approx 1 month ago. Metoprolol was changed to a higher dose and extended release. Pt states his blood sugar is controlled now. No changes in health, diet, medications, or supplements, Denies any signs and symptoms of bleeding or bruising or clotting. Bleeding, bruising, clotting discussed Nutritional guidance given to balance fruits and vegetables. Dose: continue usual dose of 5mg X 6 days and 7.5mg X 1 day F/U INR: 1 month Patient verbalizes understanding of instructions given Anti-Coag Initial Assessment Social Hx Patient Tobacco Use Status: Former Tobacco user Coding Level of Care Code Est Patient Level 1 Diagnoses Current use of anticoagulant therapy Z79.01 Results AMB INR Fingerstick AMB INR Fingerstick 2.8 Last Edit by Latoya Bunn RN on 03/15/24 11:07 interface delay Assessment & Plan Assessment & Plan (1) Current use of anticoagulant therapy: Code(s): Z79.01 - group home (current) use of anticoagulants Category: Medical
== END 2024-03-15 11:18 | disposition home or self-care (01) ==
LOC: HO.ACS 10:54
PROVIDERS: PCP Internal Medicine; Visit Provider Internal Medicine
DX: Z79.01 Long term (current) use of anticoagulants (principal)

== ENCOUNTER → 2024-03-15 10:54 | Outpatient (BNVA) | payer MEDICARE, SELFPAY | PROVIDERS: PCP Internal Medicine; Visit Provider Internal Medicine | DX: I48.0 Paroxysmal atrial fibrillation (principal); Z79.01 Long term (current) use of anticoagulants; Z51.81 Encounter for therapeutic drug level monitoring | CPT/HCPCS: 85610; 99211 ==

== ENCOUNTER 2024-04-16 10:35 | Outpatient (AMB) | payer MEDICARE, SELFPAY ==
[2024-04-16 11:22] LABS: Prothrombin Time Whole Bld POC 21.8 sec (11.1-13.5); ~PT, ~INR - Anti Coag Clinic 1.8 (0.9-1.1)
--- NOTE | 2024-04-16 11:30 | MHC.OFFVISCO ---
Intake Intake Visit Reasons: Anticoagulation Allergies No Known Allergies Allergy (Verified 04/16/24 11:14) Medication List - Last Reconciled 04/16/24 by Irlanda Locke RN digoxin 250 mcg PO DAILY hydrochlorothiazide 25 mg PO DAILY insulin glargine (Lantus Solostar U-100 Insulin) 25 units subcut BEDTIME lisinopril 5 mg PO DAILY metformin 1,000 mg PO metoprolol succinate ER 200 mg PO DAILY omeprazole 20 mg PO DAILY pioglitazone 30 mg PO DAILY semaglutide (Ozempic) 0.25 mg subcut QWEEK simvastatin 40 mg PO DAILY sitagliptin phosphate (Januvia) 100 mg PO DAILY warfarin 5 mg See Protocol PO DAILY Nursing Note INR 1.8 out of therapeutic range Medications and supplements reviewed Patient status: Started on ozempic x 5 weeks ago -stillon metformin and insulin , has lost 30 lbs so far, also has a boil on buttocks that he is treating at home and to have surgery in near future - he states he will have to hold warfarin x 5 days, has appt with PCP to find out when, pt is to call with date and if he has any medication changes Medications or supplements: oxempic x 5 weeks ago Diet: good Denies any signs and symptoms of bleeding or clotting or unusual bruising Bleeding, bruising, clotting discussed Nutritional guidance given: avoid greens x 2 days then resume usual dose - eat orange and reds to help raise the INR Dose: increase dose 7.5mg x 2 days/ 5mg x 5 days F/U INR Date : 2 weeks per pt request call with surgery date and if you start or stop any medications ?? Patient verbalizing understanding of instructions given. Anti-Coag Initial Assessment Social Hx Patient Tobacco Use Status: Former Tobacco user Coding Level of Care Code Est Patient Level 1 Diagnoses Current use of anticoagulant therapy Z79.01 Results AMB INR Fingerstick AMB INR Fingerstick 1.8 Last Edit by Irlanda Locke RN on 04/16/24 11:23 manual entry no interfacing Assessment & Plan Assessment & Plan (1) Current use of anticoagulant therapy: Code(s): Z79.01 - skilled nursing (current) use of anticoagulants Category: Medical
== END 2024-04-16 11:37 | disposition home or self-care (01) ==
LOC: HO.ACS 10:35
PROVIDERS: PCP Internal Medicine; Visit Provider Internal Medicine
DX: Z79.01 Long term (current) use of anticoagulants (principal)

== ENCOUNTER → 2024-04-16 10:35 | Outpatient (BNVA) | payer MEDICARE, SELFPAY | PROVIDERS: PCP Internal Medicine; Visit Provider Internal Medicine | DX: I48.0 Paroxysmal atrial fibrillation (principal); Z51.81 Encounter for therapeutic drug level monitoring; Z79.01 Long term (current) use of anticoagulants | CPT/HCPCS: 85610; 99211 ==

== ENCOUNTER 2024-04-30 10:46 | Outpatient (AMB) | payer MEDICARE, SELFPAY ==
--- NOTE | 2024-04-30 11:16 | MHC.OFFVISCO ---
Intake Intake Visit Reasons: Anticoagulation Allergies No Known Allergies Allergy (Verified 04/30/24 10:58) Medication List - Last Reconciled 04/30/24 by Irlanda Locke RN digoxin 250 mcg PO DAILY hydrochlorothiazide 25 mg PO DAILY insulin glargine (Lantus Solostar U-100 Insulin) 25 units subcut BEDTIME lisinopril 5 mg PO DAILY metformin 1,000 mg PO metoprolol succinate ER 200 mg PO DAILY omeprazole 20 mg PO DAILY pioglitazone 30 mg PO DAILY semaglutide (Ozempic) mg subcut simvastatin 40 mg PO DAILY warfarin 5 mg See Protocol PO DAILY Nursing Note INR: 3.0 in therapeutic range Medications and supplements reviewed- OZEMPIC INCREASED 2 WEEKS AGO- WITH INCREASED DOSE - IT NOW MAY INCREASE THE INR No changes in health, diet, medications, or supplements, Denies any signs and symptoms of bleeding or bruising or clotting. Bleeding, bruising, clotting discussed Nutritional guidance given - EAT A MIX OF FRUITS AND VEGETABLES Dose: RESUME PREVIOUS DOSE 7.5MG X 1 DAY/ 5MG X 6 DAYS F/U INR: 2 WEEKS DUE TO UNKNOWN OZEMPIC EFFECTS ON INR Patient verbalizes understanding of instructions given Anti-Coag Initial Assessment Social Hx Patient Tobacco Use Status: Former Tobacco user Coding Level of Care Code Est Patient Level 1 Diagnoses Current use of anticoagulant therapy Z79.01 Results AMB INR Fingerstick AMB INR Fingerstick 3.0 Last Edit by Irlanda Locke RN on 04/30/24 11:06 manual entry Assessment & Plan Assessment & Plan (1) Current use of anticoagulant therapy: Code(s): Z79.01 - retirement (current) use of anticoagulants Category: Medical
[2024-04-30 11:34] LABS: Prothrombin Time Whole Bld POC 35.9 sec (11.1-13.5)
== END 2024-04-30 11:28 | disposition home or self-care (01) ==
LOC: HO.ACS 10:46
PROVIDERS: PCP Internal Medicine; Visit Provider Internal Medicine
DX: Z79.01 Long term (current) use of anticoagulants (principal)

== ENCOUNTER → 2024-04-30 10:46 | Outpatient (BNVA) | payer MEDICARE, SELFPAY | PROVIDERS: PCP Internal Medicine; Visit Provider Internal Medicine | DX: I48.0 Paroxysmal atrial fibrillation (principal); Z79.01 Long term (current) use of anticoagulants; Z51.81 Encounter for therapeutic drug level monitoring | CPT/HCPCS: 85610; 99211 ==

== ENCOUNTER 2024-05-15 10:47 | Outpatient (AMB) | payer MEDICARE, SELFPAY ==
--- NOTE | 2024-05-15 11:12 | MHC.OFFVISCO ---
Intake Intake Visit Reasons: Anticoagulation Allergies No Known Allergies Allergy (Verified 05/15/24 10:49) Medication List - Last Reconciled 05/15/24 by Irlanda Locke RN diltiazem HCl ER 180 mg PO DAILY [Donut seat cushion As directed] hydrochlorothiazide 25 mg PO DAILY insulin glargine (Lantus Solostar U-100 Insulin) 25 units subcut BEDTIME lisinopril 5 mg PO DAILY metformin 1,000 mg PO metoprolol succinate ER 200 mg PO DAILY omeprazole 20 mg PO DAILY pioglitazone 30 mg PO DAILY semaglutide (Ozempic) mg subcut simvastatin 40 mg PO DAILY warfarin 5 mg See Protocol PO DAILY Nursing Note INR: 2.0 out of therapeutic range Medications and supplements reviewed Pt has been on Ozempic x 1 month and now has lost 40 lbs He is going to have excession of a boil 06/08/24 to have it removed by Dr Deleon, pt states it has not been decided how many days he will have to stop the warfarin for 3-5 days - a msg was sent to Dr Deleon regarding how many days and or what the INR should be for the procedure Denies any signs and symptoms of bleeding or bruising or clotting. Bleeding, bruising, clotting discussed Nutritional guidance given - avoid greens today Dose: 7.5mg x 1 day/ 5mg x 6 days F/U INR: 06/04/24 Patient verbalizes understanding of instructions given Anti-Coag Initial Assessment Social Hx Patient Tobacco Use Status: Former Tobacco user Questionnaires HAS-BLED Does the patient had uncontrolled Hypertension?: No Does the patient have renal disease?: No Does the patient have liver disease?: No Does the patient have a history of stroke?: No Has the patient had major bleeding or predisposition to bleeding?: Yes (AAA) Does the patient have labile INRs?: No (on ozempic now and can effect the INR ) Is the patient over 65 years of age?: Yes Is the patient on medications that gives them a predisposition to bleeding?: Yes Does the patient use alcohol?: No HAS-BLED Score: 3 CHADSVASC Age: 75 or over Gender: Male Does the patient have a history of CHF?: No Does the patient have a history of Hypertension?: Yes Does the patient have a history of Stroke/TIA/Thromboembolism?: No Does the patient have a history of Vascular Disease (prior NE, PAD or aortic plaque)?: Yes (PAS , AAA) Does the patient have a history of Diabetes?: Yes CHADS VACS Score: 5 Delfino Prediction Score Rsk VTE Active Cancer: No Previous VTE, excluding superficial vein thrombosis: No Reduced mobility: No Already known Thrombophilic Condition: No With-in last month Trauma and/or Surgery: Yes (pt states he has a boil on his buttocks ) Elderly 70 year or older: Yes Heart and/or Respiratory Failure: No Acute Myocardial infarction and/or Ischemic Stroke: No Acute Infection and/or Rheumatologic Disorder: No Obesity (BMI 30 or greater): Yes (loosing weight now - lost 40 lbs ) Ongoing Hormonal Treatment: No Score: 4 Delfino Score less than 4; Low Risk of VTE Delfino Score 4 or greater; High Risk of VTE Coding Level of Care Code Est Patient Level 1 Diagnoses Current use of anticoagulant therapy Z79.01 Results AMB INR Fingerstick AMB INR Fingerstick 2.0 Last Edit by Irlanda Locke RN on 05/15/24 10:58 MANUAL ENTRY Assessment & Plan Assessment & Plan (1) Current use of anticoagulant therapy: 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
== END 2024-05-15 11:22 | disposition home or self-care (01) ==
LOC: HO.ACS 10:47
PROVIDERS: PCP Internal Medicine; Visit Provider Internal Medicine
DX: Z79.01 Long term (current) use of anticoagulants (principal)

== ENCOUNTER → 2024-05-15 10:47 | Outpatient (BNVA) | payer MEDICARE, SELFPAY | PROVIDERS: PCP Internal Medicine; Visit Provider Internal Medicine | DX: I48.0 Paroxysmal atrial fibrillation (principal); Z79.01 Long term (current) use of anticoagulants; Z51.81 Encounter for therapeutic drug level monitoring | CPT/HCPCS: 85610; 99211 ==

== ENCOUNTER 2024-06-04 10:50 | Outpatient (AMB) | payer MEDICARE, SELFPAY ==
[2024-06-04 10:57] LABS: Prothrombin Time Whole Bld POC 32.2 sec (11.1-13.5); ~PT, ~INR - Anti Coag Clinic 2.7 (0.9-1.1)
--- NOTE | 2024-06-04 11:04 | MHC.OFFVISCO ---
Intake Intake Visit Reasons: Anticoagulation Allergies No Known Allergies Allergy (Verified 06/04/24 10:52) Nursing Note INR: 2.7-in therapeutic range of 2-3 Medications and supplements reviewed No changes in health, diet, medications, or supplements, Denies any signs and symptoms of bleeding or bruising or clotting. Bleeding, bruising, clotting discussed Nutritional guidance given - avoid greens when restarting warfarin Dose: take warfarin today then 3 days hold- restart warfarin post procedure when ok with F/U INR: wed 06/13/24 Patient verbalizes understanding of instructions given Anti-Coag Initial Assessment Social Hx Patient Tobacco Use Status: Former Tobacco user Tobacco use type: Cigarette Alcohol intake frequency: does not drink Coding Level of Care Code Est Patient Level 1 Diagnoses Current use of anticoagulant therapy Z79.01 Results AMB INR Fingerstick AMB INR Fingerstick 2.7 Last Edit by Caterina Goldstein RN on 06/04/24 10:57 Assessment & Plan Assessment & Plan (1) Current use of anticoagulant therapy: 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
== END 2024-06-04 11:09 | disposition home or self-care (01) ==
LOC: HO.ACS 10:50
PROVIDERS: PCP Internal Medicine; Visit Provider Internal Medicine
DX: Z79.01 Long term (current) use of anticoagulants (principal)

== ENCOUNTER → 2024-06-04 10:50 | Outpatient (BNVA) | payer MEDICARE, SELFPAY | PROVIDERS: PCP Internal Medicine; Visit Provider Internal Medicine | DX: I48.0 Paroxysmal atrial fibrillation (principal); Z79.01 Long term (current) use of anticoagulants; Z51.81 Encounter for therapeutic drug level monitoring | CPT/HCPCS: 85610; 99211 ==

== ENCOUNTER 2024-06-08 09:54 | Day surgery (SDC) | payer MEDICARE, SELFPAY ==
[2024-06-01 10:13] VITALS: BMI 35.9
[2024-06-01 10:18] VITALS: BP 125/71; PULSE 99; RESP 18; O2SAT 96
--- NOTE | 2024-06-07 12:14 | P.CONAN_ITS ---
Documented by User: Luann Osorio NP 06/07/24 12:17 HPI - Anesthesia Eval Consult details Narrative: 78yo M for EUA,Drainage and Debridement of Perianal Fistula,possible [facility] PAT 06/01/[address] Grimes Cardiac optimized Coumadin for afib Anesthesia Pre-Procedure Meds Is the patient on any of the following meds?: GLP1/DPP4 PMFSH Active Problems Active Problems: All Active Problems On Coumadin for atrial fibrillation (Acute) AAA (abdominal aortic aneurysm) without rupture (Acute) Paroxysmal A-fib (Acute) Current use of anticoagulant therapy (Acute) Atrial fibrillation (Acute) Perianal fistula (Acute) Past Medical History Medical History BPH (benign prostatic hyperplasia) GERD (gastroesophageal reflux disease) Sleep apnea HTN (hypertension) AAA (abdominal aortic aneurysm) Atrial fibrillation Perianal fistula Diabetes Surgical History Surgical History Hx of left cataract extraction Hx of cystoscopy H/O colonoscopy Social History Social History Are you a primary care management assistant to a significant other at home: No Do you presently have visiting nurse or other home services: No Patient Tobacco Use Status: Former Tobacco user Tobacco use type: Cigarette Use of substances other than those prescribed or required for medical reasons: No Have you been hit, kicked, punched, or otherwise hurt by someone within the past year? If so, by whom?: No Are you DNR?: No Advance Directives Information Provided: Yes (as above noted) Advance Directives on File: No Recently lost weight without trying: No Eating poorly because of decreased appetite: No Nutrition Risks: Surgical patient >75years Poor oral hygiene: No (some missing teeth, some caps/crowns) Meds Allergies Allergy/AdvReac Type Severity Reaction Status Date / Time No Known Allergies Allergy Verified 06/04/24 10:52 Home Medications ?Medication ?Instructions ?Recorded ?Confirmed ?Last Taken ?Type hydrochlorothiazide 25 mg tablet 25 mg PO QAM 09/26/20 06/01/24 06/07/24 History lisinopril 5 mg tablet 5 mg PO QAM 09/26/20 06/01/24 06/07/24 History simvastatin 40 mg tablet 40 mg PO BEDTIME 09/26/20 06/01/24 06/07/24 History metformin 1,000 mg tablet 1,000 mg PO BID 04/14/21 06/01/24 06/07/24 History omeprazole 20 mg capsule,delayed 20 mg PO QAM 05/14/22 06/01/24 06/08/24 History release insulin glargine 100 unit/mL (3 30 unit subcut BEDTIME 03/15/24 06/01/24 06/07/24 History mL) subcutaneous pen (Lantus Solostar U-100 Insulin) metoprolol succinate 200 mg 200 mg PO QAM 03/15/24 06/01/24 06/08/24 History tablet,extended release 24 hr semaglutide 1 mg/dose (4 mg/3 mL) 1 mg subcut QWEEK 04/30/24 06/01/24 05/29/24 History subcutaneous pen injector (Ozempic) diltiazem HCl 180 mg 180 mg PO QAM 05/15/24 06/01/24 06/08/24 History tablet,extended release 24 hr warfarin 5 mg tablet 5 mg PO BEDTIME 06/01/24 06/04/24 05/31/24 History Exam Height,Weight and Vital Signs: Height 5 ft 7 in Weight 103.873 kg Last Vital Signs Pulse 99 06/01/24 10:18 Resp 18 06/01/24 10:18 BP 125/71 06/01/24 10:18 Pulse Ox 96 06/01/24 10:18 O2 Del Method Room Air 06/01/24 10:18 Assessment and Plan Assessment Anesthesia Assessment: Chart Reviewed Documented by User: Brooke Palacios MD 06/08/24 12:45 HPI - Anesthesia Eval Anesthesia Pre-Procedure Meds Is the patient on any of the following meds?: GLP1/DPP4 (Last dose 05/29/24) PMFSH Active Problems Active Problems: All Active Problems On Coumadin for atrial fibrillation (Acute) AAA (abdominal aortic aneurysm) without rupture (Acute) 4.2x4.3cm on USS 06/2023 Paroxysmal A-fib (Acute) Current use of anticoagulant therapy (Acute). Last dose of coumadin 06/03/24 Atrial fibrillation (Acute) Perianal fistula (Acute) YASH Past Medical History Medical History BPH (benign prostatic hyperplasia) GERD (gastroesophageal reflux disease) Sleep apnea HTN (hypertension) AAA (abdominal aortic aneurysm) Atrial fibrillation Perianal fistula Diabetes Family History Family history of problems with anesthesia: No Surgical History Surgical History Hx of left cataract extraction Hx of cystoscopy H/O colonoscopy History of Problems with Anesthesia: No Social History Social History Are you a primary care management assistant to a significant other at home: No Do you presently have visiting nurse or other home services: No Patient Tobacco Use Status: Former Tobacco user Tobacco use type: Cigarette Use of substances other than those prescribed or required for medical reasons: No Have you been hit, kicked, punched, or otherwise hurt by someone within the past year? If so, by whom?: No Are you DNR?: No Advance Directives Information Provided: Yes (as above noted) Advance Directives on File: No Recently lost weight without trying: No Eating poorly because of decreased appetite: No Nutrition Risks: Surgical patient >75years Poor oral hygiene: No (some missing teeth, some caps/crowns) Meds Allergies Allergy/AdvReac Type Severity Reaction Status Date / Time No Known Allergies Allergy Verified 06/04/24 10:52 Home Medications ?Medication ?Instructions ?Recorded ?Confirmed ?Last Taken ?Type hydrochlorothiazide 25 mg tablet 25 mg PO QAM 09/26/20 06/01/24 06/07/24 History lisinopril 5 mg tablet 5 mg PO QAM 09/26/20 06/01/24 06/07/24 History simvastatin 40 mg tablet 40 mg PO BEDTIME 09/26/20 06/01/24 06/07/24 History metformin 1,000 mg tablet 1,000 mg PO BID 04/14/21 06/01/2406/07/24 History omeprazole 20 mg capsule,delayed 20 mg PO QAM 05/14/22 06/01/24 06/08/24 History release insulin glargine 100 unit/mL (3 30 unit subcut BEDTIME 03/15/24 06/01/24 06/07/24 History mL) subcutaneous pen (Lantus Solostar U-100 Insulin) metoprolol succinate 200 mg 200 mg PO QAM 03/15/24 06/01/24 06/08/24 History tablet,extended release 24 hr semaglutide 1 mg/dose (4 mg/3 mL) 1 mg subcut QWEEK 04/30/24 06/01/24 05/29/24 History subcutaneous pen injector (Ozempic) diltiazem HCl 180 mg 180 mg PO QAM 05/15/24 06/01/24 06/08/24 History tablet,extended release 24 hr warfarin 5 mg tablet 5 mg PO BEDTIME 06/01/24 06/04/24 05/31/24 History Exam Height,Weight and Vital Signs: Height 5 ft 7 in Weight 103.873 kg Last Vital Signs Pulse 99 06/01/24 10:18 Resp 18 06/01/24 10:18 BP 125/71 06/01/24 10:18 Pulse Ox 96 06/01/24 10:18 O2 Del Method Room Air 06/01/24 10:18 Vital Signs Temp Pulse Resp BP Pulse Ox O2 Del Method 06/08/24 10:31 98.6 F 94 18 127/71 96 Room Air Pertinent Lab Results Pertinent Lab Results: Lab Results 06/08/24 06/08/24 Range/Units 10:39 11:27 PT 16.3 H (11.1-13.3) SEC INR 1.3 H (0.9-1.1) POC Glucose 128 H (60-115) mg/dL Airway Mallampati Class: III TM Dist: >3cm Neck ROM: Full Loose/Missing/Broken Teeth: Yes (Some missing teeth) Heart: Irregularly irregular Lungs: CTAB Assessment and Plan Assessment Anesthesia Assessment: Anesthesia Plan Discussed and Chart Reviewed Final Anesthetic Review Family History of Problems with Anesthesia: No History of Problems with Anesthesia: No NPO: Yes ASA Class: III Final Preanesthetic Review: No Changes in Pt Med Stat, Meds/Allgs Chart Reviewed, Consent Obtained/Reviewed and Anes Risks/Benef Reviewed Patient Risk: Intermediate Procedure Risk: Low Assessment/Block/Sedation in SS: Assess/Block/Sedation-SS Anesthetic Plan Anesthetic Plan: GA Disposition: Standard PACU
[2024-06-08 10:31] VITALS: BP 127/71; PULSE 94; RESP 18; TEMP 37; O2SAT 96; BMI 36.0
[2024-06-08 10:42] LABS: Glucose, Whole Blood 128 mg/dL (60-115)
[2024-06-08] MEDS: Lactated Ringers 1,000 ML 100 ML IVCONT (10:53)
[2024-06-08 11:46] LABS: INTERNATIONAL NORM RATIO 1.3 (0.9-1.1); Prothrombin Time 16.3 SEC (11.1-13.3)
--- NOTE | 2024-06-08 12:58 | MHC.SHP ---
Pre-Procedural Eval Section A - 24 Hr Update-Section A only Date of Service: 06/08/24 Section B - Complete if H&P > 30 days Chief Complaint: Anal fistula Details of Present Illness: has had sinuses with dariange on perianal area Relevant Family History (Specify if Yes): No Relevant Social History: None Present Medications: see Short Stay Collaborative assessment Medical History: Significant History (AAA, Afib) Allergies: Allergies Allergy/AdvReac Type Severity Reaction Status Date / Time No Known Allergies Allergy Verified 06/04/24 10:52 Review of Systems Sugical H&P ROS: Negative: Constitution, Cardiovascular, Respiratory, Gastrointestinal and Genitourinary Exam Surgical H&P Exam: Normal: Lungs and Normal: Abdomen Exam Comment: rectal - sinuses on perianal area Plan Diagnosis/Plan: Unchanged I have reviewed the history and physical and performed a pertinent physical examination on my patient. No changes have occurred unless specified. Time Spent With Patient Time: Total time managing care of this patient today ____ minutes.
--- NOTE | 2024-06-08 13:42 | W.PM.OPN ---
Operative Note Operative Note Date of Service: 06/08/24 Narrative: Preop diagnosis: Subcutaneous fistula, anal area on the right side Postop diagnosis: The same Procedure: Exam under anesthesia, excision of subcutaneous perianal fistula with unroofing of skin and subcutaneous fat, area excised was 5 x 2 cm involving skin and subcutaneous tissue Surgeon: Xavi Deleon MD The patient is a 74-year-old male who has had this chronic drainage induration on the right perianal area. Examination revealed 2 sinus opening in the right perianal area about 4 cm from the anal verge and about 4.5 cm away from each other. There were no obvious fistula tract into the anal canal. Furthermore, an MRI did not reveal a fistula into the anal canal. In view of this persistent drainage and induration, I told him that it is best to proceed with an exam under anesthesia and possible excision of this fistula. I explained the technique of this procedure as well as the risks, benefits, and alternatives and had given consent He was brought to the operating room. He was placed in prone gisel-knife position under general anesthesia via endotracheal tube. The buttocks were retracted with wide tape laterally. The perianal area was prepped and draped in the usual sterile fashion. A surgical time-out was done. The patient received Cefotan 2 g IV preoperatively Again the external sinus openings were noted as described above. I passed a probe to 1 of the sinus openings and this actually easily passed into the other 1. However, there were no sinus tracts extending into the anal canal itself I therefore unroofed the skin and subcutaneous fat overlying this fistula in the subcutaneous layer. I excised the fistulous tract which appeared to be hypergranulation tissue with scissors and electrocautery. I cauterized whatever was remaining of the hypergranulation tissue. I made sure that all hypergranulation tissue was cauterized or excised. I copiously irrigated. I cauterized oozing areas to achieve hemostasis. The open area about 5 cm x 2 cm. I applied light iodoform packing. I applied dressings on top of this. The area was infiltrated with Marcaine 0.5% for postop analgesia. The procedure was completed The patient tolerated the procedure well. There were no immediate complications. Initial and final counts of sponges and instruments were correct. Estimated blood loss was about 20 cc The patient was extubated without difficulty and transferred to the recovery room with stable vital signs.
[2024-06-08 13:51] VITALS: BP 128/95; PULSE 86; RESP 12; TEMP 36.6; O2SAT 98
[2024-06-08 13:56] VITALS: BP 141/67; PULSE 90; RESP 16; O2SAT 95
[2024-06-08 14:00] VITALS: BP 128/78; PULSE 83; RESP 16; O2SAT 95
[2024-06-08 14:05] VITALS: BP 111/52; PULSE 81; RESP 16; O2SAT 95
[2024-06-08 14:20] VITALS: BP 104/60; PULSE 81; RESP 16; TEMP 36.6; O2SAT 95
== END 2024-06-08 14:42 | disposition home or self-care (01) ==
PROVIDERS: Nurse Practitioner; PCP Internal Medicine; Visit Provider Surgery
PROC: (CPT 46270; principal; 2024-06-08 11:40)
DX: K60.3 Anal fistula (principal); I48.91 Unspecified atrial fibrillation; I10 Essential (primary) hypertension; E11.9 Type 2 diabetes mellitus without complications; E78.5 Hyperlipidemia, unspecified; Z79.01 Long term (current) use of anticoagulants; Z79.84 Long term (current) use of oral hypoglycemic drugs; Z79.85 Long-term (current) use of injectable non-insulin antidiabetic drugs; Z79.899 Other long term (current) drug therapy; Z87.891 Personal history of nicotine dependence
CPT/HCPCS: 46270; 36415; 82947; 85610; 88304; J0131; J1100; J2405; J2704; J2795; J3010

== ENCOUNTER → 2024-06-08 09:54 | Outpatient (BNV) | payer MEDICARE, SELFPAY | PROVIDERS: PCP Internal Medicine; Visit Provider Surgery | DX: K60.3 Anal fistula (principal) | CPT/HCPCS: 46270 ==

== ENCOUNTER 2024-06-14 10:49 | Outpatient (AMB) | payer MEDICARE, SELFPAY ==
[2024-06-14 11:17] LABS: Prothrombin Time Whole Bld POC 18.2 sec (11.1-13.5); ~PT, ~INR - Anti Coag Clinic 1.5 (0.9-1.1)
--- NOTE | 2024-06-14 11:21 | MHC.OFFVISCO ---
Intake Intake Visit Reasons: Anticoagulation Allergies No Known Allergies Allergy (Verified 06/14/24 10:59) Medication List - Last Reconciled 06/14/24 by Irlanda Locke RN diltiazem HCl ER 180 mg PO QAM [Donut seat cushion As directed] hydrochlorothiazide 25 mg PO QAM insulin glargine (Lantus Solostar U-100 Insulin) 30 units subcut BEDTIME lisinopril 5 mg PO QAM metformin 1,000 mg PO BID metoprolol succinate ER 200 mg PO QAM omeprazole 20 mg PO QAM oxycodone-acetaminophen 5-325 mg (Percocet) 1 tab PO Q4-6H PRN semaglutide (Ozempic) 1 mg subcut QWEEK simvastatin 40 mg PO BEDTIME warfarin 5 mg See Protocol PO BEDTIME Nursing Note INR: 1.5 NOT IN therapeutic range 2.0- 3.0 pt s/p tunneling cyst( pt states boil) removal near anus - wound is open with drainage apparatus and has several drsg changes / day, drainage is light with mostly serous with tinge of serous sanguineous drainage, denies any pain or discomfort- actually has relief now that boil removed pt ended up holding warfarin 4 days prior, day of and 2 days after due to slight bleeding. resumed warfarin Tuesday06/10/24 10mg then 5mg daily Denies any signs and symptoms of bleeding or bruising or clotting. Bleeding, bruising, clotting discussed Nutritional guidance given - Avoid greens x 3 days - eat orange and reds to help raise the INR Dose: 7.5mg today 5mg rest of the days, (change 7.5mg from tuesday this week) then next week 7.5mg wed / 5mg x 6 days F/U INR: 1 week to check for any s/sx of infection and call [facility] if starts any antibiotics Patient verbalizes understanding of instructions given Call to pt PCP with results -left msg on MD triage line with INR and plan of care Anti-Coag Initial Assessment Social Hx Patient Tobacco Use Status: Former Tobacco user Tobacco use type: Cigarette Alcohol intake frequency: does not drink Coding Level of Care Code Est Patient Level 1 Diagnoses Current use of anticoagulant therapy Z79.01 Results AMB INR Fingerstick AMB INR Fingerstick 1.5 Last Edit by Irlanda Locke RN on 06/14/24 11:10 manual entry Assessment & Plan Assessment & Plan (1) Current use of anticoagulant therapy: 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
== END 2024-06-14 11:38 | disposition home or self-care (01) ==
LOC: HO.ACS 10:49
PROVIDERS: PCP Internal Medicine; Visit Provider Internal Medicine
DX: Z79.01 Long term (current) use of anticoagulants (principal)

== ENCOUNTER → 2024-06-14 10:49 | Outpatient (BNVA) | payer MEDICARE, SELFPAY | PROVIDERS: PCP Internal Medicine; Visit Provider Internal Medicine | DX: I48.0 Paroxysmal atrial fibrillation (principal); Z79.01 Long term (current) use of anticoagulants; Z51.81 Encounter for therapeutic drug level monitoring | CPT/HCPCS: 85610; 99211 ==

== ENCOUNTER 2024-06-21 10:43 | Outpatient (AMB) | payer MEDICARE, SELFPAY ==
[2024-06-21 10:54] LABS: Prothrombin Time Whole Bld POC 22.6 sec (11.1-13.5); ~PT, ~INR - Anti Coag Clinic 1.9 (0.9-1.1)
--- NOTE | 2024-06-21 11:00 | MHC.OFFVISCO ---
Intake Intake Visit Reasons: Anticoagulation Allergies No Known Allergies Allergy (Verified 06/21/24 11:10) Medication List - Last Reconciled 06/21/24 by Latoya Bunn RN diltiazem HCl ER 180 mg PO QAM [Donut seat cushion As directed] hydrochlorothiazide 25 mg PO QAM insulin glargine (Lantus Solostar U-100 Insulin) 30 units subcut BEDTIME lisinopril 5 mg PO QAM metformin 1,000 mg PO BID metoprolol succinate ER 200 mg PO QAM omeprazole 20 mg PO QAM oxycodone-acetaminophen 5-325 mg (Percocet) 1 tab PO Q4-6H PRN semaglutide (Ozempic) 1 mg subcut QWEEK simvastatin 40 mg PO BEDTIME warfarin 5 mg See Protocol PO BEDTIME Nursing Note INR 1.9?out of therapeutic range of 2-3 Medications and supplements reviewed Patient status: s/p surgery for a cyst with tunneling near the anus 2 weeks ago Pt states his cleans it each day. He brought a pillow to sit on and denies pain. Has a f/u appt with the surgeon today. he is not on antibx. Medications or supplements: no change Diet: usual diet for pt Denies any signs and symptoms of bleeding or clotting or unusual bruising Bleeding, bruising, clotting discussed Nutritional guidance given: to avoid greens today. Dose: keep same dose of 5mg X 6 days and 7.5mg X 1 day. Would increase today's dose but will not in case sugeon does any debridement of the wound. F/U INR Date : 2 weeks?? Patient verbalizing understanding of instructions given. Anti-Coag Initial Assessment Social Hx Patient Tobacco Use Status: Former Tobacco user Tobacco use type: Cigarette Alcohol intake frequency: does not drink Coding Level of Care Code Est Patient Level 1 Diagnoses Current use of anticoagulant therapy Z79.01 Results AMB INR Fingerstick AMB INR Fingerstick 1.9 Last Edit by Latoya Bunn RN on 06/21/24 11:01 interface delay Assessment & Plan Assessment & Plan (1) Current use of anticoagulant therapy: Code(s): Z79.01 - longterm (current) use of anticoagulants Category: Medical
== END 2024-06-21 11:10 | disposition home or self-care (01) ==
LOC: HO.ACS 10:43
PROVIDERS: PCP Internal Medicine; Visit Provider Internal Medicine
DX: Z79.01 Long term (current) use of anticoagulants (principal)

== ENCOUNTER → 2024-06-21 10:43 | Outpatient (BNVA) | payer MEDICARE, SELFPAY | PROVIDERS: PCP Internal Medicine; Visit Provider Internal Medicine | DX: K60.3 Anal fistula (principal); I48.0 Paroxysmal atrial fibrillation; Z79.01 Long term (current) use of anticoagulants; Z51.81 Encounter for therapeutic drug level monitoring | CPT/HCPCS: 85610; 99211; 99212 ==

== ENCOUNTER 2024-06-21 11:07 | Outpatient (AMB) | payer MEDICARE, SELFPAY ==
--- NOTE | 2024-06-21 11:09 | MHC.OFFVIS ---
Vital Signs 06/21/24 11:16 Height 5 ft 10 in Weight 226 lb BMI 32.4 BP 130/90 H Blood Pressure Location Rt brachial Position Sitting Pulse 64 Intake Visit Reasons: S/P drainage & debridement of perianal fistula Intake Note: This patient presents for post-op assessment status post Exam under anesthesia, excision of subcutaneous perianal fistula with unroofing of skin and subcutaneous fat, area excised was 5 x 2 cm involving skin and subcutaneous tissue. Pt c/o; reports no complaints. 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 He tolerated procedure well. He says dressing changes are being done by his . He denies any new complaints. [facility] Medical History BPH (benign prostatic hyperplasia) GERD (gastroesophageal reflux disease) Sleep apnea HTN (hypertension) AAA (abdominal aortic aneurysm) Atrial fibrillation Perianal fistula Diabetes Surgical History Hx of surgical procedure (~06/08/24) Hx of left cataract extraction Hx of cystoscopy H/O colonoscopy Social History Are you a primary family day care provider to a significant other at home: No Do you presently have visiting nurse or other home services: No Patient Tobacco Use Status: Former Tobacco user Tobacco use type: Cigarette Review of Systems Const Denies chills and Denies fever(s) Card Denies chest pain, Denies dyspnea and Denies dyspnea on exertion Resp Denies cough, Denies dyspnea and Denies dyspnea on exertion GI Denies hematochezia and Denies change in bowel habits Denies hematuria and Denies difficulty urinating Musc Denies back pain and Denies limited range of motion Neuro Denies focal weakness and Denies convulsions Psych Denies depression and Denies mood swings Physical Exam Vital Signs: Last Vital Signs Pulse 64 06/21/24 11:16 BP 130/90 H 06/21/24 11:16 BMI result Body Mass Index 32.4 Const General: comfortable and no acute distress Resp Effort & Inspection: normal respiratory effort Back/Spine/Pelvis Other: Right buttock near the perianal area with open wound after debridement, granulating well, no pus, some thin fibrinous debris noted, Results AMB INR Fingerstick AMB INR Fingerstick 1.9 Last Edit by Latoya Bunn RN on 06/21/24 11:01 interface delay Assessment & Plan Assessment & Plan (1) Perianal fistula: Code(s): K60.3 - Anal fistula Category: Medical Plan: This was a subcutaneous fistula not connected with the anal canal. He underwent unroofing and debridement of this area. The area seemed to be granulating well. I explained to him that it may take a while for this to completely reepithelialized. He is to continue doing intensive dressing changes every day. I will see him in the office in about 3 weeks for another wound check Coding Level of Care Code Global (60390) Diagnoses Perianal fistula K60.3
[2024-06-21 11:16] VITALS: BP 130/90; PULSE 64; BMI 32.4
== END 2024-06-21 11:40 | disposition home or self-care (01) ==
PROVIDERS: PCP Internal Medicine; Visit Provider Surgery
DX: K60.3 Anal fistula (principal)
CPT/HCPCS: 99024

== ENCOUNTER 2024-07-05 09:49 | Outpatient (REF) | payer MEDICARE, SELFPAY ==
--- NOTE | ~2024-07-05 | US_ITS ---
EXAMINATION: US AORTA CLINICAL INFORMATION: Infrarenal abdominal aortic aneurysm COMPARISON: Aorta ultrasound June 23, 2023 TECHNIQUE: Ultrasound of the retroperitoneum with attention to the abdominal aorta was performed. Color and spectral Doppler analysis was also employed. FINDINGS: The aorta is demonstrated to the level of its bifurcation. Maximum axial dimension diameters are as follows: Proximal abdominal aorta: 2.4 cm AP x 3.7 cm transverse. Mid abdominal aorta: 2.4 cm AP x 2.8 cm transverse. Distal abdominal aorta: 4. cm AP x 4 4.8 cm transverse. Right common iliac artery: 1.7 cm AP x 2.1 cm transverse. Left common iliac artery: 2.2 cm AP x 2.6 cm transverse. There is normal color and spectral Doppler flow within the abdominal aorta with peak systolic velocity of 44.7 cm/sec. There is no evidence of aneurysm of the abdominal aorta or common iliac arteries. US/US abdominal aortic aneurysm IMPRESSION: Marginal interval increase in size of infrarenal abdominal aortic aneurysm measuring 4.4 x 4.8 cm (previously 4.2 x 4.3 cm). Electronically signed by: Blake Escobar DO 07/09/2024 04:41 PM EDT
== END 2024-07-05 09:50 | disposition home or self-care (01) ==
LOC: HO.US 09:49
PROVIDERS: PCP Internal Medicine; Visit Provider Surgery Vascular Surgery
DX: I71.43 Infrarenal abdominal aortic aneurysm, without rupture (principal); Z79.01 Long term (current) use of anticoagulants
CPT/HCPCS: 76706; 85610; 99211

== ENCOUNTER 2024-07-05 10:18 | Outpatient (AMB) | payer MEDICARE, SELFPAY ==
[2024-07-05 11:02] LABS: Prothrombin Time Whole Bld POC 23.1 sec (11.1-13.5); ~PT, ~INR - Anti Coag Clinic 1.9 (0.9-1.1)
--- NOTE | 2024-07-05 11:11 | MHC.OFFVISCO ---
Intake Intake Visit Reasons: Anticoagulation Allergies No Known Allergies Allergy (Verified 07/05/24 10:52) Medication List - Last Reconciled 07/05/24 by Irlanda Locke RN diltiazem HCl ER 180 mg PO QAM [Donut seat cushion As directed] hydrochlorothiazide 25 mg PO QAM insulin glargine (Lantus Solostar U-100 Insulin) 30 units subcut BEDTIME lisinopril 5 mg PO QAM metformin 1,000 mg PO BID metoprolol succinate ER 200 mg PO QAM omeprazole 20 mg PO QAM oxycodone-acetaminophen 5-325 mg (Percocet) 1 tab PO Q4-6H PRN semaglutide (Ozempic) 1 mg subcut QWEEK simvastatin 40 mg PO BEDTIME warfarin 5 mg See Protocol PO BEDTIME Nursing Note INR 1.9 out of therapeutic range Medications and supplements reviewed Patient status: healing from anal fistula surgery - has open wound healing (which may contribute to lower INR) also still on ozempic which may alsp contribute to lower INR Medications or supplements: no chantes Diet: good no changes Denies any signs and symptoms of bleeding or clotting or unusual bruising Bleeding, bruising, clotting discussed Nutritional guidance given: keep same - eating a mix of fruits and vegetab;es Dose: increase to a previous dose of 7.5mg x 2 days / 5mg x 5 days F/U INR Date: 2 weeks?? Patient verbalizing understanding of instructions given. Anti-Coag Initial Assessment Social Hx Patient Tobacco Use Status: Former Tobacco user Tobacco use type: Cigarette Alcohol intake frequency: does not drink Coding Level of Care Code Est Patient Level 1 Diagnoses Current use of anticoagulant therapy Z79.01 Assessment & Plan Assessment & Plan (1) Current use of anticoagulant therapy: Code(s): Z79.01 - exterminator (current) use of anticoagulants Category: Medical
== END 2024-07-05 11:14 | disposition home or self-care (01) ==
LOC: HO.ACS 10:18
PROVIDERS: PCP Internal Medicine; Visit Provider Internal Medicine
DX: Z79.01 Long term (current) use of anticoagulants (principal)

== ENCOUNTER 2024-07-18 15:12 | Outpatient (AMB) | payer MEDICARE, SELFPAY ==
[2024-07-18 15:17] VITALS: BMI 32.4
--- NOTE | 2024-07-18 15:17 | MHC.OFFVIS ---
Vital Signs 07/18/24 15:17 Height 5 ft 10 in Weight 226 lb 0.004 oz BMI 32.4 Intake Visit Reasons: 3 week follow up S/P drain and fistula per/gen Intake Note: This patient presents for three week follow-up status post drainage & debridement of perianal fistula. Pt c/o; reports no complaints. 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 His open wound continues to decrease in size. He denies any significant complaints. [facility] Medical History BPH (benign prostatic hyperplasia) GERD (gastroesophageal reflux disease) Sleep apnea HTN (hypertension) AAA (abdominal aortic aneurysm) Atrial fibrillation Perianal fistula Diabetes Surgical History Hx of surgical procedure (~06/08/24) Hx of left cataract extraction Hx of cystoscopy H/O colonoscopy Social History Are you a primary animal care assistant to a significant other at home: No Do you presently have visiting nurse or other home services: No Patient Tobacco Use Status: Former Tobacco user Tobacco use type: Cigarette Review of Systems Const Denies chills and Denies fever(s) Physical Exam Vital Signs: BMI result Body Mass Index 32.4 Const General: comfortable and no acute distress GI Other: The open wound on the right perianal area has continued decreased in size. There is good healthy granulation tissue in the remaining open wound. There was no evidence of any pus or ongoing infection or fluctuance Assessment & Plan Assessment & Plan (1) Perianal fistula: Code(s): K60.3 - Anal fistula Category: Medical Plan: He had a subcutaneous fistula which I had unroofed and debrided. The residual open wound continues to decrease in size. He has no evidence of any infection. I advised him to continue doing the same wound care and to keep this area clean and dry. I will see him again in the office in about a month. Coding Level of Care Code Global (25162) Diagnoses Perianal fistula K60.3
== END 2024-07-18 15:28 | disposition home or self-care (01) ==
PROVIDERS: PCP Internal Medicine; Visit Provider Surgery
DX: K60.2 Anal fissure, unspecified (principal); Z48.89 Encounter for other specified surgical aftercare
CPT/HCPCS: 99024

== ENCOUNTER → 2024-07-18 15:12 | Outpatient (BNVA) | payer MEDICARE, SELFPAY | PROVIDERS: PCP Internal Medicine; Visit Provider Surgery | DX: S31.839D Unspecified open wound of anus, subsequent encounter (principal); X58.XXXD Exposure to other specified factors, subsequent encounter; Z98.890 Other specified postprocedural states | CPT/HCPCS: 99212 ==

== ENCOUNTER 2024-07-19 11:29 | Outpatient (AMB) | payer MEDICARE, SELFPAY ==
[2024-07-19 11:37] LABS: Prothrombin Time Whole Bld POC 27.4 sec (11.1-13.5); ~PT, ~INR - Anti Coag Clinic 2.3 (0.9-1.1)
--- NOTE | 2024-07-19 11:44 | MHC.OFFVISCO ---
Intake Intake Visit Reasons: Anticoagulation Allergies No Known Allergies Allergy (Verified 07/19/24 11:32) Medication List - Last Reconciled 07/19/24 by Latoya Bunn, ABELARDO diltiazem HCl ER 180 mg PO QAM [Donut seat cushion As directed] hydrochlorothiazide 25 mg PO QAM insulin glargine (Lantus Solostar U-100 Insulin) 30 units subcut BEDTIME lisinopril 5 mg PO QAM metformin 1,000 mg PO BID metoprolol succinate ER 200 mg PO QAM omeprazole 20 mg PO QAM oxycodone-acetaminophen 5-325 mg (Percocet) 1 tab PO Q4-6H PRN semaglutide (Ozempic) 1 mg subcut QWEEK simvastatin 40 mg PO BEDTIME warfarin 5 mg See Protocol PO BEDTIME Nursing Note INR: 2.3 in therapeutic range of 2-3 Medications and supplements reviewed Pt states he is healed from the anal fistula. Has an appt with Dr Deleon next week. No changes in health, diet, medications, or supplements, Denies any signs and symptoms of bleeding or bruising or clotting. Bleeding, bruising, clotting discussed Nutritional guidance given Dose: 5mg X 6 days and 7.5mg X 1day F/U INR: 4 weeks suggested but pt requests 5 weeks because he has an appt here at [facility] in 5 weeks. 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
== END 2024-07-19 11:47 | disposition home or self-care (01) ==
LOC: HO.ACS 11:29
PROVIDERS: PCP Internal Medicine; Visit Provider Internal Medicine
DX: Z79.01 Long term (current) use of anticoagulants (principal)

== ENCOUNTER → 2024-07-19 11:29 | Outpatient (BNVA) | payer MEDICARE, SELFPAY | PROVIDERS: PCP Internal Medicine; Visit Provider Internal Medicine | DX: I48.0 Paroxysmal atrial fibrillation (principal); Z79.01 Long term (current) use of anticoagulants; Z51.81 Encounter for therapeutic drug level monitoring | CPT/HCPCS: 85610; 99211 ==

== ENCOUNTER 2024-07-26 11:22 | Outpatient (AMB) | payer MEDICARE, SELFPAY ==
[2024-08-09 13:53] VITALS: BMI 32.3
--- NOTE | 2024-08-09 13:53 | A.OFFVIS_ITS ---
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 He has been having routine surveillance follow-up. He has had no interval issues. He does report that he has lost nearly 40 lb through diet and exercise. In addition he is now on Ozempic. He reports that his hemoglobin A1c has dropped from 14 down to 6.7. He reports a significant healthier lifestyle. Of note he is seeing Dr. Deleon for care of a perianal fistula. He now presents for routine surveillance follow-up with ultrasound. [facility] Medical History BPH (benign prostatic hyperplasia) GERD (gastroesophageal reflux disease) Sleep apnea HTN (hypertension) AAA (abdominal aortic aneurysm) Atrial fibrillation Perianal fistula Diabetes Surgical History Hx of surgical procedure (~06/08/24) Hx of left cataract extraction Hx of cystoscopy H/O colonoscopy Social History Are you a primary healthcare administration intern to a significant other at home: No Do you presently have visiting nurse or other home services: No Patient Tobacco Use Status: Former Tobacco user Tobacco use type: Cigarette Review of Systems Const All systems reviewed & are unremarkable except as noted in HPI and below Reports no additional complaints ENT Reports Normal hearing present Card Denies chest pain, Denies chest pain at rest, Denies chest pain with activity and Denies pedal edema Resp Denies cough GI Denies abdominal pain Musc Denies abnormal gait, Denies muscle cramps and Denies radiating pain into limb Skin/Breast Denies skin ulcer and Denies wounds Neuro Reports Normal hearing present and Denies abnormal gait Psych Reports no additional complaints Physical Exam Vital Signs: BMI result Body Mass Index 32.3 Const General: cooperative, healthy appearing and comfortable Orientation/consciousness: oriented to person, oriented to place and oriented to time HEENT Head: Yes normal to inspection Neck Neck: Yes normal visual inspection Carotids: no bruits Chest Chest palpation & inspection: normal inspection of the chest Resp Effort & Inspection: normal respiratory effort and able to speak in complete sentences Auscultation: clear to auscultation bilaterally, no crackles, no rales, no rhonchi and no wheezes Cardio Rate: regular rate Rhythm: regular rhythm Heart sounds: S1 normal heart sound present and S2 normal heart sound present Bruits: no carotid bruits Peripheral pulses: Peripheral pulses 2+ throughout GI Inspection: Yes normal to inspection Skin Wounds: no wounds Hair: normal Neuro General: oriented to person, oriented to place and oriented to time Cranial nerves: Yes CN's II-XII intact bilaterally and Yes Normal hearing present Cognition (Neuro): normal cognition Motor exam (neuro): 5/5 motor strength present throughout Extrem Other: venous exam: No significant superficial varicosities or spider telangiectasias, minimal edema General: No clubbing, No cyanosis and No edema Psych Appearance: grossly normal Mental Status: mental status grossly normal Speech and movement: Normal speech and movement present Results Reviewed Results Reviewed: Noninvasive aortic testing dated 07/05/2024 demonstrates a aneurysm measuring 4.4 x 4.8 which is slightly enlarged from prior. Assessment & Plan Assessment & Plan (1) AAA (abdominal aortic aneurysm) without rupture: Code(s): I71.4 - Abdominal aortic aneurysm, without rupture Category: Medical Qualifiers: Abdominal aorta location: infrarenal aorta Qualified Code(s): I71.43 - Infrarenal abdominal aortic aneurysm, without rupture Plan: In short patient has radiologic evidence of a AAA on ultrasound of 4.4 cm. We have discussed the pathophysiology of aortic aneurysms and the risk of ruptures. We have discussed rupture risk based on size. In addition we have discussed conservative measures and risk factor modification for prevention of increase in size of the aneurysm. the patient is scheduled for surveillance follow-up in approximately 1 year. Thank you for allowing us to participate in the care of this patient Please note a longitudinal relationship has been created with the patient and we have been following and surveillance this chronic condition. Coding Level of Care Code Est Pt Level 4 (30656) Complex EM visit Add On G2211 Diagnoses Infrarenal abdominal aortic aneurysm (AAA) without rupture I71.43 Abdominal aorta location: infrarenal aorta
== END 2024-08-09 14:11 | disposition home or self-care (01) ==
PROVIDERS: PCP Internal Medicine; Visit Provider Surgery Vascular Surgery
DX: I71.43 Infrarenal abdominal aortic aneurysm, without rupture (principal)
CPT/HCPCS: 99214; G2211

== ENCOUNTER → 2024-07-26 11:22 | Outpatient (BNVA) | payer MEDICARE, SELFPAY | PROVIDERS: PCP Internal Medicine; Visit Provider Surgery Vascular Surgery | DX: I71.43 Infrarenal abdominal aortic aneurysm, without rupture (principal) | CPT/HCPCS: 99212 ==

== ENCOUNTER 2024-08-23 10:52 | Outpatient (AMB) | payer MEDICARE, SELFPAY ==
[2024-08-23 10:59] LABS: Prothrombin Time Whole Bld POC 21.8 sec (11.1-13.5); ~PT, ~INR - Anti Coag Clinic 1.8 (0.9-1.1)
--- NOTE | 2024-08-23 11:04 | MHC.OFFVISCO ---
Intake Intake Visit Reasons: Anticoagulation Allergies No Known Allergies Allergy (Verified 08/23/24 10:54) Medication List - Last Reconciled 08/23/24 by Latoya Bunn RN diltiazem HCl ER 180 mg PO QAM [Donut seat cushion As directed] hydrochlorothiazide 25 mg PO QAM insulin glargine (Lantus Solostar U-100 Insulin) 30 units subcut BEDTIME lisinopril 5 mg PO QAM metformin 1,000 mg PO BID metoprolol succinate ER 200 mg PO QAM omeprazole 20 mg PO QAM oxycodone-acetaminophen 5-325 mg (Percocet) 1 tab PO Q4-6H PRN semaglutide (Ozempic) 1 mg subcut QWEEK simvastatin 40 mg PO BEDTIME warfarin 5 mg See Protocol PO BEDTIME Nursing Note INR 1.8?out of therapeutic range of 2-3 Medications and supplements reviewed Patient status: well Medications or supplements: no changes Diet: usual diet Denies any signs and symptoms of bleeding or clotting or unusual bruising Bleeding, bruising, clotting discussed Nutritional guidance given: to avoid greens today Dose: 5mg X 6 days and 7.5mg X 1 day F/U INR Date : 4 weeks?? Patient verbalizing understanding of instructions given. Anti-Coag Initial Assessment Social Hx Patient Tobacco Use Status: Former Tobacco user Tobacco use type: Cigarette Alcohol intake frequency: does not drink Coding Level of Care Code Est Patient Level 1 Diagnoses Current use of anticoagulant therapy Z79.01 Results AMB INR Fingerstick AMB INR Fingerstick 1.8 Last Edit by Latoya Bunn RN on 08/23/24 10:59 interface delay Assessment & Plan Assessment & Plan (1) Current use of anticoagulant therapy: Code(s): Z79.01 - care home (current) use of anticoagulants Category: Medical
== END 2024-08-23 11:13 | disposition home or self-care (01) ==
LOC: HO.ACS 10:52
PROVIDERS: PCP Internal Medicine; Visit Provider Internal Medicine
DX: Z79.01 Long term (current) use of anticoagulants (principal)

== ENCOUNTER → 2024-08-23 10:52 | Outpatient (BNVA) | payer MEDICARE, SELFPAY | PROVIDERS: PCP Internal Medicine; Visit Provider Internal Medicine | DX: I48.0 Paroxysmal atrial fibrillation (principal); K60.30 Anal fistula, unspecified; Z79.01 Long term (current) use of anticoagulants; Z51.81 Encounter for therapeutic drug level monitoring | CPT/HCPCS: 85610; 99211; 99212 ==

== ENCOUNTER 2024-08-23 11:12 | Outpatient (AMB) | payer MEDICARE, SELFPAY ==
[2024-08-23 11:18] VITALS: BMI 33.3
--- NOTE | 2024-08-23 11:18 | A.OFFVIS_ITS ---
Vital Signs 08/23/24 11:18 Height 5 ft 10 in Weight 232 lb BMI 33.3 Intake Visit Reasons: 1 month follow up S/P drain and fistula per/gen Intake Note: This patient presents for one month follow-up status post drainage & debridement of perianal fistula. Pt c/o; reports no complaints. 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 He says he feels much better. He states the excision site has closed up completely. He denies pain or discharge. [facility] Medical History BPH (benign prostatic hyperplasia) GERD (gastroesophageal reflux disease) Sleep apnea HTN (hypertension) AAA (abdominal aortic aneurysm) Atrial fibrillation Perianal fistula Diabetes Surgical History Hx of surgical procedure (~06/08/24) Hx of left cataract extraction Hx of cystoscopy H/O colonoscopy Social History Are you a primary childbirth and infant care teacher to a significant other at home: No Do you presently have visiting nurse or other home services: No Patient Tobacco Use Status: Former Tobacco user Tobacco use type: Cigarette Review of Systems Const Denies chills and Denies fever(s) Physical Exam Vital Signs: BMI result Body Mass Index 33.3 Const General: no acute distress GI Other: recta exam - excision site now wellhealed, completely reepithelialized Results AMB INR Fingerstick AMB INR Fingerstick 1.8 Last Edit by Latoya Bunn RN on 08/23/24 10:59 interface delay Assessment & Plan Assessment & Plan (1) Perianal fistula: Code(s): K60.3 - Anal fistula Category: Medical Plan: S/P excision and debridement of subcutaneous fistula. The area is now wellhealed. He feels well overall. He can therefore ffup on a prn basis. Coding Level of Care Code Global (25878) Diagnoses Perianal fistula K60.3
== END 2024-08-23 11:57 | disposition home or self-care (01) ==
PROVIDERS: PCP Internal Medicine; Visit Provider Surgery
DX: K60.30 Anal fistula, unspecified (principal)
CPT/HCPCS: 99024

== ENCOUNTER 2024-09-20 10:30 | Outpatient (AMB) | payer MEDICARE, SELFPAY ==
--- OUTSIDE RECORDS SUMMARY | 2024-09-20 10:36 | XMS_ITS | Continuity of Care Document ---
Author Name [facility] Organization [facility] Care Team Providers Care Naturopath Name Role Phone [facility] Unavailable Unavailable Problems Combined list of problems from Department of Defense and Veterans Affairs facilities. It does not include entries that were removed or entered in error. Problem Status Onset Date Problem Type Date of Resolution Comments Source Abdominal aortic aneurysm Active Condition Mar 10, 2017 Entered By: ASHLEY SMALL Comment: 02/2014 - 4.2cmJun 2016 Entered By: ASHLEY SMALL Comment: 02/2016 - [facility] - cmJul 2017 Entered By: ASHLEY SMALL Comment: 01/2018 - 4.6cm - [facility] ALCOHOL ABUSE-UNSPEC Active Condition [place] Chronic atrial fibrillation (SNOMED CT 617112772) Active Condition [place] Colonoscopy Screening Active Condition Mar 10, 2017 Entered By: ASHLEY SMALL Comment: 2006 - + polyps - 2011 - +polypsJun 2016 Entered By: ASHLEY SMALL Comment: 01/2016 - normal - Dr Argueta - F/U 5 years (2020)Mar 19, 2021 Entered By: ASHLEY SMALL Comment: 07/04/20 - post-polype ctomy scar in rectum - Dr Ignacio Eng - repeat 3 yrs [place] Exsmoker Active Condition Mar 19, 2021 Entered By: ASHLEY SMALL Comment: Quit 1998 - < 1 PPD x 25 yrs [facility] Hematuria Active Condition Mar 10, 2017 Entered By: ASHLEY SMALL Comment: Chronic [place] Hypertension Active [facility] Knee pain (SNOMED CT 76651593) Active Condition [place] Mixed hyperlipidemia Active Condition [facility] Obesity (SNOMED CT 394526013) Active Condition [place] Primary Care Physician Active Condition Mar 10, 2017 Entered By: ASHLEY SMALL Comment: Dr Bolanos [facility] Sciatica Active Condition Jun 24, 2016 Entered By: AJAY GUPTA MD Comment: Right 2014 [facility] Sensorineural Hearing Loss * (ICD-9-CM 389.10) Active Condition [facility] Sleep apnea Active Condition February 19, 2009 Entered By: KINGS PAVON Comment: CPAP 10cm [place] Tinnitus Active Condition [place] Type 2 diabetes mellitus Active Condition [place] TOBACCO USE DISORDER Inactive Condition 11/18/2006 [place] Vertigo/Dizziness Inactive Condition 05/13/2008 [place] Medications Combined list of outpatient medications from Department of Defense and [facility] Affairs facilities.Medications provided include [...] DAILY ORAL ACTIVE INOCENCIO GUPTA MD 2015 [facility] LISINOPRIL 5MG TAB TAKE ONE TABLET BY MOUTH ONCE DAILY ORAL ACTIVE INOCENCIO GUPTA MD 2015 [facility] METFORMIN HCL 500MG TAB TAKE ONE TABLET BY MOUTH TWICE DAILY ORAL ACTIVE NIKA SMALL SA 2020 [facility] METOPROLOL TARTRATE 50MG TAB TAKE ONE TABLET BY MOUTH TWICE DAILY ORAL ACTIVE NIKA SMALL SA 2020 [facility] SENNOSIDES 8.6MG TAB TAKE ONE TABLET BY MOUTH ONCE DAILY NEEDED ORAL ACTIVE NIAK SMALL SA 2020 [facility] SIMVASTATIN 80MG TAB TAKE ONE-HALF TABLET BY MOUTH ONCE DAILY ORAL ACTIVE NIKA SMALL SA 2020 [facility] SITAGLIPTIN PHOSPHATE [...] Site Reaction Lot Number CVX Code 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 2) Encounters from the Department of Defense facilities going back up to 280 months. Location Location Details Encounter Type Encounter Number Reason For Visit Attending Provider ADM Date DC Date Status Disposition Source [facility] Outpatient Encounter [id number] 11/24 [facility] Social History Combined list of available smoking, tobacco, and other social history from Department of Defense and Veterans Affairs facilities. Social History Type Response Date Comment Sourc e Tobacco smoking status NHIS VA-TOBACCO FORMER USER 03/19/2021 [place] History of tobacco use [place]-TOBACCO QUIT 15 YRS OR MORE 03/19/2021 [place] History of tobacco use [place]-TOBACCO QUIT 15 YRS OR MORE 03/29/2019 [place] History of tobacco use LIFETIME NON-TOBACCO USER 02/28/2018 [place] History of tobacco use QUIT TOBACCO USE > 7 YEARS AGO 03/03/2017 cigarettes 1/2 pack a day quit 18 years ago [place] History of tobacco use QUIT TOBACCO USE > 7 YEARS AGO 09/22/2015 [place] History of tobacco use QUIT TOBACCO USE > 7 YEARS AGO 05/01/2010 [place] History of tobacco use QUIT TOBACCO USE 1-7 YEARS AGO 07/18/2009 Patient quit tabacco use in 2000. [place] History of tobacco use QUIT TOBACCO USE 1-7 YEARS AGO 05/13/2008 [place] History of tobacco use QUIT TOBACCO USE IN PAST YEAR 08/07/2007 [place] History of tobacco use QUIT TOBACCO USE 1-7 YEARS AGO 11/18/2006 Pt. has not smokesd since 2000. [place] History of tobacco use QUIT TOBACCO USE 1-7 YEARS AGO 12/17/2005 Quit x 5yrs [place]
--- OUTSIDE RECORDS SUMMARY | 2024-09-20 10:36 | XMS_ITS ---
Author Name [facility] Organization [facility] Address [address] [place] [phone] Care Team Providers Care General Farmworker Name Role Phone STACI ASHLEY Primary Care Provider Unavailabl e Insurance Providers: All historical and current Section Date Range: From patient's date of to the date document was created. This section includes the names of all active insurance providers for the patient. Insurance Provider Type of Coverage Plan Name Start of Policy Coverage End of Policy Coverage Group Number Member ID Insurance Provider's Telephone Number Policy Reeves's Name Patient's Relationship to Policy Reeves MEDICARE (WNR) MEDICARE (M) PART A Oct 10, 2012 PART A [id number] FABIYu MARY PATIENT MEDICARE (WNR) MEDICARE (M) PART B Oct 10, 2012 PART B [id number] MARY ASHLEY PATIENT MEDICARE (WNR) MEDICARE (M) PART A 2012 PART A [id number] DIONMARY PATIENT MEDICARE (WNR) MEDICARE (M) PART B Jun 10, 2012 PART B [id number] MARY ASHLEY PATIENT [facility] (WNR) MEDICARE ADVANTAGE [facility] (WNR) Oct 10, 2019 [id number] MARY ASHLEY PATIENT Selected Encounter This section includes the information on record at [place] for the Encounter. Date/Time Encounter Type Encounter Description Reason Pro vider Source Nov 24, 2023 03:57 PM Outpatient Encounter PRIMARY CARE/MEDICINE IHE Encounter Template Text not used by [facility] Encounter Notes: All associated encounter notes This section contains the clinical notes associated to the Encounter. Date/Time Encounter Note(s) Provider Source Nov 24, 2023 03:57 PM PRIMARY CARE TELEP ARNIE ENCOUNTER NOTE: LOCAL TITLE: TELEPHONE NOTE/PRIMARY CARE STANDARD TITLE: PRIMARY CARE TELEPHONE ENCOUNTER NOTE DATE OF NOTE: NOV 24, 2023@15:57 ENTRY DATE: NOV 24, 2023@15:58:02 AUTHOR: BEVERLY DACOSTA EXP COSIGNER: URGENCY: STATUS: COMPLETED called to schedule an appt with off of auto inactivation list and he states he is in [place] until January and will call back then. /benita/ BEVERLY DACOSTA ADVANCED VAULT KEEPER Signed: 11/24/2023 15:58 BEVERLY DACOSTA HUNTER
--- NOTE | 2024-09-20 10:38 | MHC.OFFVISCO ---
Intake Intake Visit Reasons: Anticoagulation Allergies No Known Allergies Allergy (Verified 09/20/24 10:32) Medication List - Last Reconciled 09/20/24 by Caterina Goldstein RN diltiazem HCl ER 180 mg PO QAM [Donut seat cushion As directed] hydrochlorothiazide 25 mg PO QAM insulin glargine (Lantus Solostar U-100 Insulin) 25 units subcut BEDTIME lisinopril 5 mg PO QAM metformin 1,000 mg PO BID metoprolol succinate ER 200 mg PO QAM omeprazole 20 mg PO QAM oxycodone-acetaminophen 5-325 mg (Percocet) 1 tab PO Q4-6H PRN semaglutide (Ozempic) 1 mg subcut QWEEK simvastatin 40 mg PO BEDTIME warfarin 5 mg See Protocol PO BEDTIME Nursing Note INR 1.6-?? out of therapeutic range of 2-3 denies missed dose Medications and supplements reviewed Patient status: no c.o Medications or supplements: lantus 25units daily, on ozempic Diet: appetite same Denies any signs and symptoms of bleeding or clotting or unusual bruising Bleeding, bruising, clotting discussed Nutritional guidance given: no greens for 2 days, eat reds to raise Dose: 7.5mg today and tomm then increase weekly dosing 7.5mg x 2, 5mg x 5 F/U INR Date : pt req 10/01/24? Patient verbalizing understanding of instructions given. Anti-Coag Initial Assessment Social Hx Patient Tobacco Use Status: Former Tobacco user Tobacco use type: Cigarette Alcohol intake frequency: does not drink Coding Level of Care Code Est Patient Level 1 Diagnoses Current use of anticoagulant therapy Z79.01 Assessment & Plan Assessment & Plan (1) Current use of anticoagulant therapy: Code(s): Z79.01 - [facility]DC (current) use of anticoagulants Category: Medical
[2024-09-20 10:39] LABS: ~PT, ~INR - Anti Coag Clinic 1.6 (0.9-1.1)
== END 2024-09-20 10:48 | disposition home or self-care (01) ==
LOC: HO.ACS 10:30
PROVIDERS: PCP Internal Medicine; Visit Provider Internal Medicine
DX: Z79.01 Long term (current) use of anticoagulants (principal)

== ENCOUNTER → 2024-09-20 10:30 | Outpatient (BNVA) | payer MEDICARE, SELFPAY | PROVIDERS: PCP Internal Medicine; Visit Provider Internal Medicine | DX: I48.0 Paroxysmal atrial fibrillation (principal); Z79.01 Long term (current) use of anticoagulants; Z51.81 Encounter for therapeutic drug level monitoring | CPT/HCPCS: 85610; 99211 ==

== ENCOUNTER 2024-10-01 11:21 | Outpatient (AMB) | payer MEDICARE, SELFPAY ==
--- OUTSIDE RECORDS SUMMARY | 2024-10-01 11:24 | XMS_ITS | Continuity of Care Document ---
Author Name [facility] Organization [facility] Care Team Providers Care Pediatric Ophthalmologist Name Role Phone [facility] Unavailable Unavailable Problems Combined list of problems from Department of Defense and Veterans Affairs facilities. It does not include entries that were removed or entered in error. Problem Status Onset Date Problem Type Date of Resolution Comments Source Abdominal aortic aneurysm Active Condition Mar 10, 2017 Entered By: ASHLEY SMALL Comment: 02/2014 - 4.2cmJun 2016 Entered By: ASHLEY SMALL Comment: 02/2016 - [facility] - cmJul 2017 Entered By: ASHLEY SMALL Comment: 01/2018 - 4.6cm - [facility] ALCOHOL ABUSE-UNSPEC Active Condition [place] Chronic atrial fibrillation (SNOMED CT 581202478) Active Condition [place] Colonoscopy Screening Active Condition Mar 10, 2017 Entered By: ASHLEY SMALL Comment: 2006 - + polyps - 2011 - +polypsJun 2016 Entered By: ASHLEY SMALL Comment: 01/2016 - normal - Dr Argueta - F/U 5 years (2020)Mar 19, 2021 Entered By: ASHLEY SMALL Comment: 07/04/20 - post-polype ctomy scar in rectum - Dr Ignacio Eng - repeat 3 yrs [place] Exsmoker Active Condition Mar 19, 2021 Entered By: ASHLEY SMALL Comment: Quit 1998 - < 1 PPD x [address] [facility] Hematuria Active Condition Mar 10, 2017 Entered By: ASHLEY SMALL Comment: Chronic [place] Hypertension Active [facility] Knee pain (SNOMED CT 43438288) Active Condition [place] Mixed hyperlipidemia Active Condition [facility] Obesity (SNOMED CT 387275024) Active Condition [place] Primary Care Physician Active Condition Mar 10, 2017 Entered By: ASHLEY SMALL Comment: Dr Bolanos [facility] Sciatica Active Condition Jun 24, 2016 Entered By: AJAY GUPTA MD Comment: Right 2014 [facility] Sensorineural Hearing Loss * (ICD-9-CM 389.10) Active Condition [facility] Sleep apnea Active Condition February 19, 2009 Entered By: KINGS PAVON Comment: CPAP 10cm [place] Tinnitus Active Condition [place] Type 2 diabetes mellitus Active Condition [place] TOBACCO USE DISORDER Inactive Condition 11/18/2006 [place] Vertigo/Dizziness Inactive Condition 05/13/2008 [place] Medications Combined list of outpatient medications from Department of Defense and [facility] Affairs facilities.Medications provided include 1) outpatient medications from the last 15 months, and 2) patient-reported medications. Medication Details Route Status Patient Instructions Prescription Expires Prescription Number Last Dispense Date Ordering Provider Order Date Order Qty Source ASPIRIN 81MG TAB,EC TAKE ONE TABLET BY MOUTH EVERY DAY ORAL ACTIVE GABY PAVON 2007 [facility] IELD DOCUSATE NA 100MG CAP TAKE 1 CAPSULE BY MOUTH EVERY DAY ORAL ACTIVE GABY PAVON 2007 [facility] IELD HYDROCHLORO THIAZIDE 25MG TAB TAKE ONE TABLET BY MOUTH ONCE DAILY ORAL ACTIVE INOCENCIO GUPTA MD 2015 [facility] LISINOPRIL 5MG TAB TAKE ONE TABLET BY MOUTH ONCE DAILY ORAL ACTIVE INOCENCIO GUPTA MD 2015 [facility] METFORMIN HCL 500MG TAB TAKE ONE TABLET BY MOUTH TWICE DAILY ORAL ACTIVE NIKA SMALL SA 2020 [facility] METOPROLOL TARTRATE 50MG TAB TAKE ONE TABLET BY MOUTH TWICE DAILY ORAL ACTIVE NIKA SMALL SA 2020 [facility] SENNOSIDES 8.6MG TAB TAKE ONE TABLET BY MOUTH ONCE DAILY NEEDED ORAL ACTIVE NIKA SMALL SA 2020 [facility] SIMVASTATIN 80MG TAB TAKE ONE-HALF TABLET BY MOUTH ONCE DAILY ORAL ACTIVE NIKA SMALL SA 2020 [facility] SITAGLIPTIN PHOSPHATE [...] Site Reaction Lot Number CVX Code Drug Graduate Fellow Status Comments Source INFLUENZA VACCINE, QUADRIVALENT, ADJUVANTED [...] ADM Date DC Date Status Disposition Source [facility] Outpatient Encounter [id number] 11/24 [facility] Social History Combined list of available smoking, tobacco, and other social history from Department of Defense and Veterans Affairs facilities. Social History Type Response Date Comment Sourc e Tobacco smoking status NHIS VA-TOBACCO FORMER USER 03/19/2021 [place] History of tobacco use CT-TOBACCO QUIT 15 YRS OR MORE 03/19/2021 [place] History of tobacco use CT-TOBACCO QUIT 15 YRS OR MORE 03/29/2019 [place] History of tobacco use LIFETIME NON-TOBACCO USER 02/28/2018 [place] History of tobacco use QUIT TOBACCO USE > 7 YEARS AGO 03/03/2017 cigarettes 1/2 pack a day quit 18 years ago [place] History of tobacco use QUIT TOBACCO USE > 7 YEARS AGO 09/22/2015 [place] History of tobacco use QUIT TOBACCO USE > 7 YEARS AGO 05/01/2010 [place] History of tobacco use QUIT TOBACCO USE 1-7 YEARS AGO 07/18/2009 Patient quit tabacco use in 2000. [place] History of tobacco use QUIT TOBACCO USE 1-7 YEARS AGO 05/13/2008 [place] History of tobacco use QUIT TOBACCO USE IN PAST YEAR 08/07/2007 [place] History of tobacco use QUIT TOBACCO USE 1-7 YEARS AGO 11/18/2006 Pt. has not smokesd since 2000. [place] History of tobacco use QUIT TOBACCO USE 1-7 YEARS AGO 12/17/2005 Quit x 5yrs [place]
--- OUTSIDE RECORDS SUMMARY | 2024-10-01 11:24 | XMS_ITS ---
Author Name [facility] Organization [facility] Address [address] [place] [id number] Care Team Providers Care Technical Support Associate Name Role Phone STACI ASHLEY Primary Care [...] PART A Oct 10, 2012 PART A [id number] [phone] FABIYu MARY PATIENT MEDICARE (WNR) MEDICARE (M) PART B Oct 10, 2012 PART B [id number] MARY ASHLEY PATIENT MEDICARE (WNR) MEDICARE (M) PART A 2012 PART A [id number] [phone] DIONMARY PATIENT MEDICARE (WNR) MEDICARE (M) PART B Jun 10, 2012 PART B [id number] [id number] MARY ASHLEY PATIENT [facility] (WNR) MEDICARE ADVANTAGE [facility] (WNR) Oct 10, 2019 [id number] MARY ASHLEY PATIENT Selected Encounter This section includes the information on record at [place] for the Encounter. Date/Time Encounter Type Encounter [...] call back then. 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
--- NOTE | 2024-10-01 11:48 | MHC.OFFVISCO ---
Intake Intake Visit Reasons: Anticoagulation Allergies No Known Allergies Allergy (Verified 10/01/24 11:27) Medication List - Last Reconciled 10/01/24 by Irlanda Locke RN diltiazem HCl ER 180 mg PO QAM [Donut seat cushion As directed] hydrochlorothiazide 25 mg PO QAM insulin glargine (Lantus Solostar U-100 Insulin) 25 units subcut BEDTIME lisinopril 5 mg PO QAM metformin 1,000 mg PO BID metoprolol succinate ER 200 mg PO QAM omeprazole 20 mg PO QAM oxycodone-acetaminophen 5-325 mg (Percocet) 1 tab PO Q4-6H PRN semaglutide (Ozempic) 1 mg subcut QWEEK simvastatin 40 mg PO BEDTIME warfarin 5 mg See Protocol PO BEDTIME Nursing Note INR: 2.0 in therapeutic range Medications and supplements reviewed- still on Ozempic - he has lost 35 lbs total but not any more- enc to watch eating and if ok with MD light exercise Pt states that he has had spot bleeding from his butttocks where he had a boil removed and wearing a pad - he is enc to call MD- He is concerned for his who has been ill, she has f/u tests He is going to have f/u INR prior to leaving for [place] x 3 months Denies any signs and symptoms of bleeding or bruising or clotting. Bleeding, bruising, clotting discussed Nutritional guidance given - eat orange and reds to help keep the INR above 2.0 Dose: keep same dose for now due to spotting little blood from old surgical site 7.5mg x 2 days/ 5mg x 5 days F/U INR: 10/15/2024 Patient verbalizes understanding of instructions given Anti-Coag Initial Assessment Social Hx Patient Tobacco Use Status: Former Tobacco user Tobacco use type: Cigarette Alcohol intake frequency: does not drink Coding Level of Care Code Est Patient Level 1 Diagnoses Current use of anticoagulant therapy Z79.01 Results AMB INR Fingerstick AMB INR Fingerstick 2.0 Last Edit by Irlanda Locke RN on 10/01/24 11:44 MANUAL ENTRY Assessment & Plan Assessment & Plan (1) Current use of anticoagulant therapy: Code(s): 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
[2024-10-01 11:49] LABS: Prothrombin Time Whole Bld POC 23.9 sec (11.1-13.5)
== END 2024-10-01 12:00 | disposition home or self-care (01) ==
LOC: HO.ACS 11:21
PROVIDERS: PCP Internal Medicine; Visit Provider Internal Medicine
DX: Z79.01 Long term (current) use of anticoagulants (principal)

== ENCOUNTER → 2024-10-01 11:21 | Outpatient (BNVA) | payer MEDICARE, SELFPAY | PROVIDERS: PCP Internal Medicine; Visit Provider Internal Medicine | DX: I48.0 Paroxysmal atrial fibrillation (principal); Z79.01 Long term (current) use of anticoagulants; Z51.81 Encounter for therapeutic drug level monitoring | CPT/HCPCS: 85610; 99211 ==

== ENCOUNTER 2024-10-15 11:14 | Outpatient (AMB) | payer MEDICARE, SELFPAY ==
--- NOTE | 2024-10-15 11:26 | MHC.OFFVISCO ---
Intake Intake Visit Reasons: Anticoagulation Allergies No Known Allergies Allergy (Verified 10/15/24 11:21) Medication List - Last Reconciled 10/15/24 by Latoya Bunn RN diltiazem HCl ER 180 mg PO QAM [Donut seat cushion As directed] hydrochlorothiazide 25 mg PO QAM insulin glargine (Lantus Solostar U-100 Insulin) 25 units subcut BEDTIME lisinopril 5 mg PO QAM metformin 1,000 mg PO BID metoprolol succinate ER 200 mg PO QAM omeprazole 20 mg PO QAM oxycodone-acetaminophen 5-325 mg (Percocet) 1 tab PO Q4-6H PRN semaglutide (Ozempic) 1 mg subcut QWEEK simvastatin 40 mg PO BEDTIME warfarin 5 mg See Protocol PO BEDTIME Nursing Note INR: 2.3 in therapeutic range of 2-3 Medications and supplements reviewed No changes in health, diet, medications, or supplements, Denies any signs and symptoms of bleeding or bruising or clotting. Bleeding, bruising, clotting discussed Nutritional guidance given Dose: 5mg X 5 days and 7.5mg X 2 days F/U INR: 4 weeks Pt states he leaves for [place] this week and will call when he gets back to make appt Patient verbalizes understanding of instructions given Anti-Coag Initial Assessment Social Hx Patient Tobacco Use Status: Former Tobacco user Tobacco use type: Cigarette Alcohol intake frequency: does not drink Coding Level of Care Code Est Patient Level 1 Diagnoses Current use of anticoagulant therapy Z79.01 Results AMB INR Fingerstick AMB INR Fingerstick 2.3 Last Edit by Latoya Bunn RN on 10/15/24 11:22 Assessment & Plan Assessment & Plan (1) Current use of anticoagulant therapy: Code(s): 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
[2024-10-15 11:57] LABS: Prothrombin Time Whole Bld POC 27.6 sec (11.1-13.5); ~PT, ~INR - Anti Coag Clinic 2.3 (0.9-1.1)
--- OUTSIDE RECORDS SUMMARY | 2024-10-15 12:52 | XMS_ITS | Continuity of Care Document ---
Author Organization [place] - [facility], [facility] Address [address] [place] [address] Care Team Providers Care Ore Dryer Name Role Phone TIFF CAPONE Primary Care Provider [phone] Assessment Encounter Date Assessment Date Assessment LastModified by Organization Details LastModified Time 09/20/2024 09/20/2024 79 year old male with bilateral [facility] removal. Impacted cerumen removed bilaterally. Bilateral TMs are intact. Follow up in 4 months for routine debridement. [email or web address] Not available 09/20/2024 09:04:56 Plan of Treatment Reminders Order Date Submit Date Provider Last Modified By Organization Details Last Modified Time Details Appointments Establish ed 15 2024 11:15A M LEXI RAINEY PA-C Not available Not available Not available Lab None recorded. Referral None recorded. Procedures None recorded. Surgeries None recorded. Imaging None recorded. Medication Orders None recorded. Patient TargetsNo targets recorded. Patient InstructionsNo instructions recorded. Reason for Referral None Reported. Problems Name Problem SNOMED Code Status Onset Date Resolution Date Notes Provider Name and Address Organization Details Recorded Time Impacted cerumen of bilateral ears 65835162457 [id number] Active 2022 Impacted cerumen, bilateral ; Note: Date Diagnosed : 04/04/2023 3:51 PM (H61.23) Not Available [facility] 02:30:39 Sensorine ural hearing loss of bilateral ears 765312394 Active 2022 Sensorine ural hearing loss, bilateral ; Note: Date Diagnosed : 04/04/2023 4:56 PM (H90.3) Not Available [facility] 08/02/202 4 02:30:33 Problem Notes None recorded. Procedures Surgical History Date Name Laterality Status Provider Name and Address Organization Details Recorded Time 4 Cerumen removal without microscope bilat completed LEXI RAINEY PA-C [address] [facility],[place] [address], [place], [address], [facility] - [facility] 09/20/2024 09:04:36 4 Cerumen removal with microscope left completed NADEGE LOPEZ PA-C [address] [facility] [address], [place], [address], [facility] - [facility] 07/04/2024 11:06:08 4 Cerumen removal without microscope right completed NADEGE LOPEZ PA-C [address] [facility],[place] [address], [place], [address], [facility] - [facility] 07/04/2024 11:05:50 Imaging Results None recorded. Procedure Notes None recorded. Medical Equipment None Reported. Allergies No known drug allergies Medications Name Sig Start Date Stop Date Status Note LastModified by Organization Details LastModified Time ofloxacin 0.3 % eye drops INSTILL 1 DROP INTO LEFT EYE FOUR TIMES DAILY DIRECTED 09/20 completed Not Available Not Available Not Available metoprolol succinate ER 200 mg tablet,exte nded release 24 hr active Not Available Not Available Not Available digoxin 250 mcg (0.25 mg) tablet TAKE 1 TABLET BY MOUTH EVERY DAY active Not Available Not Available No t Available simvastatin 40 mg tablet active Not Available Not Available Not Available ketorolac 0.5 % eye drops INSTILL 1 DROP INTO LEFT EYE 4 TIMES A DAY 09/20 completed Not Available Not Available Not Available metformin 1,000 mg tablet active Not Available Not Available Not Available warfarin 5 mg tablet active Not Available Not Available No t Available metoprolol tartrate 50 mg tablet 09/20 completed Not Available Not Available Not Available omeprazole 20 mg capsule,del ayed release active Not Available Not Available Not Available lisinopril 5 mg tablet active Not Available Not Available Not Available hydrochloro thiazide 25 mg tablet active Not Available Not Available No t Available pioglitazon e 30 mg tablet active Not Available Not Available Not Available diltiazem ER 180 mg tablet,exte nded release 24 hr active Not Available Not Available Not Available BD Ultra-Fine Mini Pen Needle 31 gauge x 3/16 USE ONE NEEDLE SUBCUTANE OUSLY AT BEDTIME. 09/20 completed Not Available Not Available Not Available Lantus Solostar U-100 Insulin 100 unit/mL (3 mL) subcutaneou s pen ADMINISTE R 30 UNITS UNDER THE SKIN EVERY NIGHT AT BEDTIME active Not Available Not Available No t Available OneTouch Verio test strips USE 1 STRIP VIA METER ONCE DAILY TO CHECK FASTING BLOOD SUGAR LEBEL 09/20 completed Not Available Not Available Not Available OneTouch Verio Flex Meter USE DIRECTED TO TEST BLOOD GLUCOSE 09/20 completed Not Available Not Available Not Available OneTouch Delica Plus Lancet 30 gauge USE DIRECTED ONCE A DAY 09/20 completed Not Available Not Available Not Available Ozempic 1 mg/dose (4 mg/3 mL) subcutaneou s pen injector INJECT 1MG SUBCUTANE OUSLY ONCE A WEEK active Not Available Not Available No t Available Ozempic 0.25 mg or 0.5 mg (2 mg/3 mL) subcutaneou s pen injector INJECT 0.25 MG SUBCUTANE OSLY ONCE WEEKLY 09/20 completed Not Available Not Available Not Available Vitals Date Recorded Body height Body weight Provider Name and Address Organization Details Last Updated DateTime 09/20/2024 172.72 cm 901015.25 g Marina Okeefe [place] - [facility] 09/20/2024 08:52:51 Social History None recorded. Functional Status None recorded. Mental Status None recorded. Family History Nothing Reported. Medical History Condition Response Diabetes Y Hypertension Y High Cholesterol Y Past Encounters Encounter ID Performer Location Encounter Start Date Encounter Closed Date Diagnosis/Indication Diagnosis SNOMED-CT Code Diagnosis ICD10 Code Diagnosis Note [id number] TON BENJAMIN MD [facility] of [address] [address] 09/20/2024 08:43:17 09/20/2024 09:16:52 Impacted cerumen of bilateral ears [id number] 412951 H61.23 Health Concerns Section Related Observation LastModified by Organization Detai ls LastModified Time None Recorded Concern Status LastModified by Organization Details LastModified Time None Recorded Payers Encounter Date Sequence Insurance Name Policy Number Policy Reeves Covered Member ID Reeves Member ID Guarantor Name 09/20/2024 1 [facility] (MEDICARE REPLACEMENT/A DVANTAGE - HMO) [id number] Ignacio King [id number] Ignacio King Notes Date Note Type Note Provider Name and Address Organization Details Recorded Time 09/20/2024 text/html 79 year old male presents for cerumen removal. History of profound left sided hearing loss. [facility] Denies otalgia, otorrhea, or hearing loss. TON BENJAMIN MD [address] [place] [address], [phone], [facility] - [facility] 09/21/2024 07:47:45
--- OUTSIDE RECORDS SUMMARY | 2024-10-15 12:52 | XMS_ITS | Continuity of Care Document ---
Author Name [facility] Organization [facility] Care Team Providers Care Vp Revenue Cycle Name Role Phone [facility] Unavailable Unavailable Problems Combined list of problems [...] ASHLEY SMALL Comment: 02/2016 - [facility] - cmJul 2017 Entered By: ASHLEY SMALL Comment: 01/2018 - 4.6cm - [facility] ALCOHOL ABUSE-UNSPEC Active Condition [facility] Chronic atrial fibrillation (SNOMED CT 331872072) Active Condition [facility] Colonoscopy Screening Active Condition Mar 10, 2017 Entered By: ASHLEY SMALL Comment: 2006 - + polyps - 2011 - +polypsJun 2016 Entered By: AHSLEY SMALL Comment: 01/2016 - normal - Dr Argueta - F/U 5 years (2020)Mar 19, 2021 Entered By: ASHLEY SMALL Comment: 07/04/20 - post-polype ctomy scar in rectum - Dr Ignacio Eng - repeat 3 yrs [facility] Exsmoker Active Condition Mar 19, 2021 Entered By: ASHLEY SMALL Comment: Quit 1998 - < 1 PPD x 25 yrs [facility] Hematuria Active Condition Mar 10, 2017 Entered By: ASHLEY SMALL Comment: Chronic [facility] Hypertension Active Condition [facility] Knee pain (SNOMED CT 49324430) Active Condition [facility] Mixed hyperlipidemia Active Condition [facility] Obesity (SNOMED CT 057223649) Active Condition [facility] Primary Care Physician Active Condition Mar 10, 2017 Entered By: ASHLEY SMALL Comment: Dr Bolanos [facility] Sciatica Active Condition Jun 24, 2016 Entered By: AJAY GUPTA MD Comment: Right 2014 [facility] Sensorineural Hearing Loss * (ICD-9-CM 389.10) Active Condition [facility] Sleep apnea Active Condition February 19, 2009 Entered By: KINGS PAVON Comment: CPAP 10cm [facility] Tinnitus Active Condition [facility] Type 2 diabetes mellitus Active Condition [facility] TOBACCO USE DISORDER Inactive Condition 11/18/2006 [facility] Vertigo/Dizziness Inactive Condition 05/13/2008 [facility] Medications Combined list of outpatient medications from Department of Defense and [facility] Affairs facilities.Medications provided include 1) outpatient medications from the last 15 months, and 2) patient-reported medications. Medication Details Route Status Patient Instructions Prescription Expires Prescription Number Last Dispense Date Ordering Provider Order Date Order Qty Source ASPIRIN 81MG TAB,EC TAKE ONE TABLET BY MOUTH EVERY DAY ORAL ACTIVE GABY PAVON 2007 [facility] IELD DOCUSATE NA 100MG CAP TAKE 1 CAPSULE BY MOUTH EVERY DAY ORAL ACTIVE GABY PAVON 2007 [facility] IELD HYDROCHLORO THIAZIDE 25MG TAB TAKE ONE TABLET BY MOUTH ONCE DAILY ORAL ACTIVE INOCENCIO GUPTA MD 2015 [facility] LISINOPRIL 5MG TAB TAKE ONE TABLET BY MOUTH ONCE DAILY ORAL ACTIVE INOCENCIO GUPTA MD 2015 [facility] METFORMIN HCL 500MG TAB TAKE ONE TABLET BY MOUTH TWICE DAILY ORAL ACTIVE NIKA SMALL SA 2020 [facility] METOPROLOL TARTRATE 50MG TAB TAKE ONE TABLET BY MOUTH TWICE DAILY ORAL ACTIVE NIKA SMALL SA 2020 [facility] SENNOSIDES 8.6MG TAB TAKE ONE TABLET BY MOUTH ONCE DAILY NEEDED ORAL ACTIVE NIKA SMALL SA 2020 [facility] SIMVASTATIN 80MG TAB TAKE ONE-HALF TABLET BY MOUTH ONCE DAILY ORAL ACTIVE NIKA SMALL SA 2020 [facility] SITAGLIPTIN PHOSPHATE [...] Site Reaction Lot Number CVX Code Drug Private Wealth Advisor Status Comments Source INFLUENZA VACCINE, QUADRIVALENT, ADJUVANTED [...] ADM Date DC Date Status Disposition Source [facility] Outpatient Encounter [id number] 11/24 [facility] Social History Combined list of available smoking, tobacco, and other social history from Department of Defense and Veterans Affairs facilities. Social History Type Response Date Comment Sourc e Tobacco smoking status NHIS VA-TOBACCO FORMER USER 03/19/2021 [facility] History of tobacco use NE-TOBACCO QUIT 15 YRS OR MORE 03/19/2021 [facility] History of tobacco use NE-TOBACCO QUIT 15 YRS OR MORE 03/29/2019 [facility] History of tobacco use LIFETIME NON-TOBACCO USER 02/28/2018 [facility] History of tobacco use QUIT TOBACCO USE > 7 YEARS AGO 03/03/2017 cigarettes 1/2 pack a day quit 18 years ago [facility] History of tobacco use QUIT TOBACCO USE > 7 YEARS AGO 09/22/2015 [facility] History of tobacco use QUIT TOBACCO USE > 7 YEARS AGO 05/01/2010 [facility] History of tobacco use QUIT TOBACCO USE 1-7 YEARS AGO 07/18/2009 Patient quit tabacco use in 2000. [facility] History of tobacco use QUIT TOBACCO USE 1-7 YEARS AGO 05/13/2008 [facility] History of tobacco use QUIT TOBACCO USE IN PAST YEAR 08/07/2007 [facility] History of tobacco use QUIT TOBACCO USE 1-7 YEARS AGO 11/18/2006 Pt. has not smokesd since 2000. [facility] History of tobacco use QUIT TOBACCO USE 1-7 YEARS AGO 12/17/2005 Quit x 5yrs [facility]
--- OUTSIDE RECORDS SUMMARY | 2024-10-15 12:52 | XMS_ITS | Data Portability ---
Author Organization [place] - [facility], Allergy Address [address] [place] [address] Care Team Providers Care Delivery Driver Assistant Name Role Phone TIFF CAPONE Primary Care Provider Assessment Encounter Date Assessment Date Assessment LastModified by Organization Details LastModified Time 07/04/2024 07/04/2024 79 year old male presents to the office for routine 4 month ear cleaning. Ears were meticulously cleaned bilaterally today with fine pics and suction. Patient is encouraged to avoid Q-tips in his ears relative to packing the wax in tighter. Patient was advised to use several vinegar drops once or twice weekly for maintenance. He will follow up in 4 months for ear cleaning. [email or web address] Not available 07/04/2024 11:08:38 09/20/2024 09/20/2024 79 year old male with bilateral [facility] presents for [facility]umen removal. Impacted cerumen removed bilaterally. Bilateral TMs are intact. Follow up in 4 months for routine debridement. [email or web address] Not available 09/20/2024 09:04:56 Plan of Treatment [...] Recorded Time Impacted cerumen of bilateral ears [id number] 40512 Active 2022 Impacted cerumen, bilateral ; Note: Date Diagnosed : 04/04/2023 3:51 PM (H61.23) Not Available [facility] 4 02:30:39 Sensorine ural hearing loss of bilateral ears 201752077 Active 2022 Sensorine ural hearing loss, bilateral ; Note: Date Diagnosed : 04/04/2023 4:56 PM (H90.3) Not Available [facility] 4 02:30:33 Problem Notes None recorded. Procedures Surgical History Date Name Laterality Status Provider Name and Address Organization Details Recorded Time 4 Cerumen removal without microscope bilat completed LEXI RAINEY PA-C [address] [facility],[address], [place], [address], [facility] 09/20/2024 09:04:36 4 Cerumen removal with microscope left completed NADEGE LOPEZ PA-C [address] [facility],[address], [place], [address], [facility] - [facility] 07/04/2024 11:06:08 4 Cerumen removal without microscope right completed NADEGE LOPEZ PA-C [address] [facility],[address], [place], [address], [facility] 07/04/2024 11:05:50 Imaging Results None recorded. Procedure [...] Available Vitals Date Recorded Body height Body mass index (BMI) Body weight Provider Name and Address Organization Details Last Updated DateTime 07/04/2024 172.72 cm 35 kg/m2 358838.25 g Myrtle Bran [place] - [facility] 07/04/2024 10:22:57 Date Recorded Body height Body weight Provider Name and Address Organization Details Last Updated DateTime 09/20/2024 172.72 cm 626714.25 g Marina Okeefe [place] - [facility] 09/20/2024 08:52:51 Social History None recorded. Functional Status None recorded. Mental Status None recorded. Family History Nothing Reported. Medical History Condition Response Diabetes Y Hypertension Y High Cholesterol Y Past Encounters Encounter ID Performer Location Encounter Start Date Encounter Closed Date Diagnosis/Indication Diagnosis SNOMED-CT Code Diagnosis ICD10 Code Diagnosis Note [id number] LAURA IGLESIAS MD [facility] of [address] [address] 07/04/2024 10:10:59 07/04/2024 11:00:57 Impacted cerumen of bilateral ears [id number] 303170 H61.23 Sensorineu ral hearing loss of bilateral ears 404097348 H90.3 [id number] TON BENJAMIN MD [facility] of [address] [address] 09/20/2024 08:43:17 09/20/2024 09:16:52 Impacted cerumen of bilateral ears 0253301078 567263 H61.23 Health Concerns Section Related Observation LastModified by Organization Detai ls LastModified Time None Recorded Concern Status LastModified by Organization Details LastModified Time None Recorded Advance Directives Directive None Recorded Payers Encounter Date Sequence Insurance Name Policy Number Policy Reeves Covered Member ID Reeves Member ID Guarantor Name 07/04/2024 1 [facility] (MEDICARE REPLACEMENT/A DVANTAGE - HMO) [id number] Ignacio King [id number] Ignacio King 09/20/2024 1 [facility] (MEDICARE REPLACEMENT/A DVANTAGE - HMO) [id number] Ignacio King [id number] Ignacio King Notes Date Note Type Note Provider Name and Address Organization Details Recorded Time 07/04/2024 text/html 79 year old male presents to the office for routine ear cleaning. He has known profound hearing loss on the left. He [facility] but admits that he does not use them much. He denies otalgia and otorrhea. LAURA BALLESTEROS MD [address] [place] [address], [phone], [facility] - [facility] 07/04/2024 12:40:29 09/20/2024 text/html 79 year old male presents for cerumen removal. History of profound left sided hearing loss. [facility]. Denies otalgia, otorrhea, or hearing loss. TON BENJAMIN MD [address] [place] [address], [place], [address], [facility] - [facility] 09/21/2024 07:47:45
== END 2024-10-15 11:44 | disposition home or self-care (01) ==
LOC: HO.ACS 11:14
PROVIDERS: PCP Internal Medicine; Visit Provider Internal Medicine
DX: Z79.01 Long term (current) use of anticoagulants (principal)

== ENCOUNTER → 2024-10-15 11:14 | Outpatient (BNVA) | payer MEDICARE, SELFPAY | PROVIDERS: PCP Internal Medicine; Visit Provider Internal Medicine | DX: I48.0 Paroxysmal atrial fibrillation (principal); Z79.01 Long term (current) use of anticoagulants; Z51.81 Encounter for therapeutic drug level monitoring | CPT/HCPCS: 85610; 99211 ==

== ENCOUNTER 2024-12-31 10:47 | Outpatient (AMB) | payer MEDICARE, SELFPAY ==
[2024-12-31 10:53] LABS: ~PT, ~INR - Anti Coag Clinic 2.6 (0.9-1.1)
--- NOTE | 2024-12-31 10:56 | MHC.OFFVISCO ---
Intake Intake Visit Reasons: Anticoagulation Allergies No Known Allergies Allergy (Verified 12/31/24 10:49) Medication List - Last Reconciled 12/31/24 by Latoya Bunn, ABELARDO diltiazem HCl ER 180 mg PO QAM [Donut seat cushion As directed] hydrochlorothiazide 25 mg PO QAM insulin glargine (Lantus Solostar U-100 Insulin) 25 units subcut BEDTIME lisinopril 5 mg PO QAM metformin 1,000 mg PO BID metoprolol succinate ER 200 mg PO QAM omeprazole 20 mg PO QAM oxycodone-acetaminophen 5-325 mg (Percocet) 1 tab PO Q4-6H PRN semaglutide (Ozempic) 1 mg subcut QWEEK simvastatin 40 mg PO BEDTIME warfarin 5 mg See Protocol PO BEDTIME Nursing Note INR: 2.6 in therapeutic range of 2-3 Pt returns to [facility] after being in [place] for 2 months. Last visit was 10/15/24 Medications and supplements reviewed No changes in health, diet, medications, or supplements, Denies any signs and symptoms of bleeding or bruising or clotting. 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
== END 2024-12-31 10:59 | disposition home or self-care (01) ==
LOC: HO.ACS 10:47
PROVIDERS: PCP Internal Medicine; Visit Provider Internal Medicine Medical Oncology
DX: Z79.01 Long term (current) use of anticoagulants (principal)

== ENCOUNTER → 2024-12-31 10:47 | Outpatient (BNVA) | payer MEDICARE, SELFPAY | PROVIDERS: PCP Internal Medicine; Visit Provider Internal Medicine Medical Oncology | DX: I48.0 Paroxysmal atrial fibrillation (principal); Z51.81 Encounter for therapeutic drug level monitoring; Z79.01 Long term (current) use of anticoagulants | CPT/HCPCS: 85610; 99211 ==

== ENCOUNTER 2025-02-04 10:55 | Outpatient (AMB) | payer MEDICARE, SELFPAY ==
[2025-02-04 11:19] LABS: Prothrombin Time Whole Bld POC 22.4 sec (11.1-13.5); ~PT, ~INR - Anti Coag Clinic 1.9 (0.9-1.1)
--- NOTE | 2025-02-04 11:26 | MHC.OFFVISCO ---
Intake Intake Visit Reasons: Anticoagulation Allergies No Known Allergies Allergy (Verified 02/04/25 11:10) Medication List - Last Reconciled 02/04/25 by Irlanda Locke RN diltiazem HCl ER 180 mg PO QAM [Donut seat cushion As directed] hydrochlorothiazide 25 mg PO QAM insulin glargine (Lantus Solostar U-100 Insulin) 25 units subcut BEDTIME lisinopril 5 mg PO QAM metformin 1,000 mg PO BID metoprolol succinate ER 200 mg PO QAM omeprazole 20 mg PO QAM oxycodone-acetaminophen 5-325 mg (Percocet) 1 tab PO Q4-6H PRN semaglutide (Ozempic) 1 mg subcut QWEEK simvastatin 40 mg PO BEDTIME warfarin 5 mg See Protocol PO BEDTIME Nursing Note INR: 1.9 almost therapeutic range- just ate a lot of greens recently Medications and supplements reviewed No changes in health, diet, medications, or supplements, Denies any signs and symptoms of bleeding or bruising or clotting. Bleeding, bruising, clotting discussed Nutritional guidance given - avoid greens today Dose: keep same dose 7.5mg x 2 days/ 5mg x 5 days( will do 7.5mg today instead of tomorrow) F/U INR: 4 weeks ( agreed to 4 weeks due to low INR, instead of 5 weeks) Patient verbalizes understanding of instructions given with read back Anti-Coag Initial Assessment Social Hx Patient Tobacco Use Status: Former Tobacco user Tobacco use type: Cigarette Alcohol intake frequency: does not drink Coding Level of Care Code Est Patient Level 1 Diagnoses Current use of anticoagulant therapy Z79.01 Results AMB INR Fingerstick AMB INR Fingerstick 1.9 Last Edit by Irlanda Locke RN on 02/04/25 11:22 MANUAL Assessment & Plan Assessment & Plan (1) Current use of anticoagulant therapy: Code(s): Z79.01 - nursing home (current) use of anticoagulants Category: Medical
--- OUTSIDE RECORDS SUMMARY | 2025-02-04 13:07 | XMS_ITS | Continuity of Care Document ---
Author Name [facility] Organization [facility] Care Team Providers Care Reroller Hand Name Role Phone [facility] Unavailable Unavailable Problems Combined list of problems from Department of Defense and Veterans Affairs facilities. It does not include entries that were removed or entered in error. Problem Status Onset Date Problem Type Date of Resolution Comments Source Abdominal aortic aneurysm Active Condition Mar 10, 2017 Entered By: ASHLEY SMALL Comment: 02/2014 - 4.2cmJun 2016 Entered By: ASHLEY SMALL Comment: 02/2016 - [facility] - cmJul 2017 Entered By: ASHLEY SMALL Comment: 01/2018 - 4.6cm - [facility] ALCOHOL ABUSE-UNSPEC Active Condition [place] Chronic atrial fibrillation (SNOMED CT 688615404) Active Condition [place] Colonoscopy Screening Active Condition Mar 10, 2017 Entered By: ASHLEY SMALL Comment: 2006 - + polyps - 2011 - +polypsJun 2016 Entered By: ASHLEY SMALL Comment: 01/2016 - normal - Dr Argueta - F/U 5 years (2020)Mar 19, 2021 Entered By: ASHLEY SMALL Comment: 07/04/20 - post-polype ctomy scar in rectum - Dr Ignacio Eng - repeat 3 yrs [place] Exsmoker Active Condition Mar 19, 2021 Entered By: ASHLEY SMALL Comment: Quit 1998 - < 1 PPD x 25 yrs [facility] Hematuria Active Condition Mar 10, 2017 Entered By: ASHLEY SMALL Comment: Chronic [place] Hypertension Active [facility] Knee pain (SNOMED CT 16316095) Active Condition [place] Mixed hyper[facility] Ob[facility] (SNOMED CT 082566551) Active Condition [place] Primary Care Physician Active Condition Mar 10, 2017 Entered By: ASHLEY SMALL Comment: Dr Bolanos [place] [facility] Sciatica Active Condition Jun 24, 2016 Entered By: AJAY GUPTA MD Comment: Right 2014 [facility] Sensorineural Hearing Loss * (ICD-9-CM 389.10) Active Condition [facility] Sleep apnea Active Condition February 19, 2009 Entered By: KINGS PAVON Comment: CPAP 10cm [place] Tinnitus Active Condition [place] Type 2 diabetes mellitus Active Condition [place] TOBACCO USE DISORDER Inactive Condition 11/18/2006 [place] Vertigo/Dizziness Inactive Condition 05/13/2008 [place] Medications Combined list of outpatient medications from Department of Defense and [facility] Affairs facilities.Medications provided include 1) outpatient medications from the last 15 months, and 2) patient-reported medications. Medication Details Route Status Patient Instructions Prescription Expires Prescription Number Last Dispense Date Ordering Provider Order Date Order Qty Source ASPIRIN 81MG TAB,EC TAKE ONE TABLET BY MOUTH EVERY DAY ORAL ACTIVE GABY PAVON 2007 [facility] IELD DOCUSATE NA 100MG CAP TAKE 1 CAPSULE BY MOUTH EVERY DAY ORAL ACTIVE GABY PAVON 2007 [facility] IELD HYDROCHLORO THIAZIDE 25MG TAB TAKE ONE TABLET BY MOUTH ONCE DAILY ORAL ACTIVE INOCENCIO GUPTA MD 2015 [facility] LISINOPRIL 5MG TAB TAKE ONE TABLET BY MOUTH ONCE DAILY ORAL ACTIVE INOCENCIO GUPTA MD 2015 [facility] METFORMIN HCL 500MG TAB TAKE ONE TABLET BY MOUTH TWICE DAILY ORAL ACTIVE NIKA SMALL SA 2020 [facility] METOPROLOL TARTRATE 50MG TAB TAKE ONE TABLET BY MOUTH TWICE DAILY ORAL ACTIVE NIKA SMALL SA 2020 [facility] SENNOSIDES 8.6MG TAB TAKE ONE TABLET BY MOUTH ONCE DAILY NEEDED ORAL ACTIVE NIKA SMALL SA 2020 [facility] SIMVASTATIN 80MG TAB TAKE ONE-HALF TABLET BY MOUTH ONCE DAILY ORAL ACTIVE NIKA SMALL SA 2020 [facility] SITAGLIPTIN PHOSPHATE [...] Site Reaction Lot Number CVX Code Drug Primary Special Educator Status Comments Source INFLUENZA VACCINE, QUADRIVALENT, ADJUVANTED [...] ADM Date DC Date Status Disposition Source [place] [facility] Outpatient Encounter [id number] 11/24 [place] [facility] Social History Combined list of available smoking, tobacco, and other social history from Department of Defense and Veterans Affairs facilities. Social History Type Response Date Comment Sourc e Tobacco smoking status NMIS [place]-TOBACCO FORMER USER 03/19/2021 [place] History of tobacco use [place]-TOBACCO QUIT 15 YRS OR MORE 03/19/2021 [place] History of tobacco use [place]-TOBACCO FORMER USER 03/29/2019 [place] History of tobacco use LIFETIME NON-TOBACCO USER 02/28/2018 [place] History of tobacco use QUIT TOBACCO USE > 7 YEARS AGO 03/03/2017 cigarettes 1/2 pack a day quit 18 years ago [place] History of tobacco use QUIT TOBACCO USE > 7 YEARS AGO 09/22/2015 [place] History of tobacco use QUIT TOBACCO USE > 7 YEARS AGO 05/01/2010 [place] History of tobacco use QUIT TOBACCO USE 1-7 YEARS AGO 07/18/2009 Patient quit tabacco use in 2000. [place] History of tobacco use QUIT TOBACCO USE 1-7 YEARS AGO 05/13/2008 [place] History of tobacco use QUIT TOBACCO USE IN PAST YEAR 08/07/2007 [place] History of tobacco use QUIT TOBACCO USE 1-7 YEARS AGO 11/18/2006 Pt. has not smokesd since 2000. [place] History of tobacco use QUIT TOBACCO USE 1-7 YEARS AGO 12/17/2005 Quit x 5yrs [place]
--- OUTSIDE RECORDS SUMMARY | 2025-02-04 13:07 | XMS_ITS | Data Portability ---
Author Organization [place] [facility], Allergy Address [address] [place] [id number] Care Team Providers Care Therapeutic Program Worker Name Role Phone TIFF CAPONE Primary Care Provider [phone] Assessment Encounter Date Assessment Date Assessment LastModified [...] up in 4 months for routine debridement. [email or web address] Not available 09/20/2024 09:04:56 01/21/2025 01/21/2025 79 year old male with bilateral [facility] for [facility]umen removal. Impacted cerumen removed bilaterally. Bilateral TMs are intact. Follow up in 4 months for routine debridement, or sooner with concerns. [email or web address] Not available 01/21/2025 11:26:58 Plan of Treatment Reminders Order Date Submit [...] Recorded Time Impacted cerumen of bilateral ears [id number] Active 2022 Impacted cerumen, bilateral ; Note: Date Diagnosed : 04/04/2023 3:51 PM (H61.23) Not Available [facility] 4 02:30:39 Sensorine ural hearing loss of bilateral ears [id number] Active 2022 Sensorine ural hearing loss, bilateral ; Note: Date Diagnosed : 04/04/2023 4:56 PM (H90.3) Not Available [facility] 4 02:30:33 Problem Notes None recorded. Procedures Surgical History Date Name Laterality Status Provider Name and Address Organization Details Recorded Time 5 Cerumen removal without microscope bilat completed LEXI RAINEY PA-C [address] [place] [address],[address], [address], [facility] 01/21/2025 11:12:24 4 Cerumen removal without microscope bilat completed LEXI RAINEY PA-C [address] [place] [address],[address], [address], [facility] 09/20/2024 09:04:36 4 Cerumen removal with microscope left completed NADEGE LOPEZ PA-C [address] [place] [address],[address], [address], [facility] 07/04/2024 11:06:08 4 Cerumen removal without microscope right completed NADEGE LOPEZ PA-C [address] [facility],[address], [address], [facility] 07/04/2024 11:05:50 Imaging Results None recorded. Procedure Notes None recorded. Medical Equipment None Reported. Allergies No known drug allergies Medications Name Sig Start Date Stop Date Status Note LastModified by Organization Details LastModified Time ofloxacin 0.3 % eye drops INSTILL 1 DROP INTO LEFT EYE FOUR TIMES DAILY DIRECTED 12/12 /2024 completed Not Available Not Available Not Available [...] USE ONE NEEDLE SUBCUTANE OUSLY AT BEDTIME. active Not Available Not Available No t Available Lantus Solostar U-100 Insulin 100 unit/mL [...] mL) subcutaneou s pen injector INJECT 1MG INTO THE SKIN ONCE WEKLY active Not Available Not Available No t Available Ozempic 0.25 mg or 0.5 mg (2 mg/3 mL) subcutaneou s pen injector INJECT 0.25 MG SUBCUTANE OSLY ONCE WEEKLY 09/20 completed Not Available Not Available Not Available Vitals Date Recorded Body height Provider Name an d Address Organization Details Last Updated DateTime 01/21/2025 172.72 cm VICKI LEONARDKobe [place] [facility] 01/21/2025 11:14:16 Date Recorded Body height Body mass index (BMI) Body weight Provider Name and Address Organization Details Last Updated DateTime 07/04/2024 172.72 cm 35 kg/m2 054243.25 g Myrtle Bran [place] [facility] 07/04/2024 10:22:57 Date Recorded Body height Body weight Provider Name and Address Organization Details Last Updated DateTime 09/20/2024 172.72 cm 649955.25 g Marina Okeefe [place] [facility] 09/20/2024 08:52:51 Social History None recorded. Functional Status None recorded. Mental Status None recorded. Family History Nothing Reported. Medical History Condition Response Diabetes Y High Cholesterol Y Hypertension Y Past Encounters Encounter ID Performer Location Encounter Start Date Encounter Closed Date Diagnosis/Indication Diagnosis SNOMED-CT Code Diagnosis ICD10 Code Diagnosis Note [id number] LAURA IGLESIAS MD [facility] [address] [address] 07/04/2024 10:10:59 07/04/2024 11:00:57 Impacted cerumen of bilateral ears [id number] 209851 H61.23 Sensorineu ral hearing loss of bilateral ears 769143585 H90.3 [id number] TON BENJAMIN MD [facility] [address] [address] 09/20/2024 08:43:17 09/20/2024 09:16:52 Impacted cerumen of bilateral ears [id number] 949290 H61.23 [id number] TON BENJAMIN MD [facility] [address] [address] 01/21/2025 11:09:38 01/21/2025 11:26:06 Impacted cerumen of bilateral ears [id number] 914224 H61.23 Health Concerns Section Related Observation LastModified by Organization Detai ls LastModified Time None Recorded Concern Status LastModified by Organization Details LastModified Time None Recorded Advance Directives Directive None Recorded Payers Encounter Date Sequence Insurance Name Policy Number Policy Reeves Covered Member ID Reeves Member ID Guarantor Name 07/04/2024 1 [facility] (MEDICARE REPLACEMENT/A DVANTAGE - HMO) [id number] Ignacio Guzman Boquet [id number] Ignacio Guzman Bousquet 09/20/2024 1 [facility] (MEDICARE REPLACEMENT/A DVANTAGE - HMO) [id number] Ignacio Guzman Bousquet [id number] Ignacio Guzman Bousquet 01/21/2025 1 [facility] (MEDICARE REPLACEMENT/A DVANTAGE - HMO) [id number] Ignacio Guzman Bousquet [id number] Ignacio Guzman Bousquet Notes Date Note Type Note Provider Name and Address Organization Details Recorded Time 07/04/2024 text/html 79 year old male presents to the office for routine ear cleaning. He has known profound hearing loss on the left. He has BiCROS hearing aids from the [place] but admits that he does not use them much. He denies otalgia and otorrhea. LAURA BALLESTEROS MD [address], [address], [place] [facility] 07/04/2024 12:40:29 09/20/2024 text/html 79 year old male presents for cerumen removal. History of profound left sided hearing loss. [facility] Denies otalgia, otorrhea, or hearing loss. TON BENJAMIN MD [address] [place] [address],[address], [address], [place] [facility] 09/21/2024 07:47:45 01/21/2025 text/html 79 year old male presents for cerumen removal. History of profound left sided hearing loss. [facility]. Reports intermittent itching of the ears, but denies otalgia, otorrhea, or hearing loss. TON BENJAMIN MD [address] [place] [address],[address], [address], [place] [facility] 01/22/2025 16:24:19
== END 2025-02-04 11:37 | disposition home or self-care (01) ==
LOC: HO.ACS 10:55
PROVIDERS: PCP Internal Medicine; Visit Provider Internal Medicine Medical Oncology
DX: Z79.01 Long term (current) use of anticoagulants (principal)

== ENCOUNTER → 2025-02-04 10:55 | Outpatient (BNVA) | payer MEDICARE, SELFPAY | PROVIDERS: PCP Internal Medicine; Visit Provider Internal Medicine Medical Oncology | DX: I48.0 Paroxysmal atrial fibrillation (principal); Z79.01 Long term (current) use of anticoagulants; Z51.81 Encounter for therapeutic drug level monitoring | CPT/HCPCS: 85610; 99211 ==

== ENCOUNTER 2025-03-06 10:49 | Outpatient (AMB) | payer MEDICARE, SELFPAY ==
--- NOTE | 2025-03-06 11:00 | MHC.OFFVISCO ---
Intake Intake Visit Reasons: Anticoagulation Allergies No Known Allergies Allergy (Verified 03/06/25 10:57) Medication List - Last Reconciled 03/06/25 by Caterina Goldstein RN diltiazem HCl ER 180 mg PO QAM [Donut seat cushion As directed] hydrochlorothiazide 25 mg PO QAM insulin glargine (Lantus Solostar U-100 Insulin) 25 units subcut BEDTIME lisinopril 5 mg PO QAM metformin 1,000 mg PO BID metoprolol succinate ER 200 mg PO QAM omeprazole 20 mg PO QAM oxycodone-acetaminophen 5-325 mg (Percocet) 1 tab PO Q4-6H PRN semaglutide (Ozempic) 1 mg subcut QWEEK simvastatin 40 mg PO BEDTIME warfarin 5 mg See Protocol PO BEDTIME Nursing Note INR: 2.8- in therapeutic range of 2-3 Medications and supplements reviewed- no changes No changes in health, diet, medications, or supplements, Denies any signs and symptoms of bleeding or bruising or clotting. 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
[2025-03-06 11:01] LABS: Prothrombin Time Whole Bld POC 33.7 sec (11.1-13.5); ~PT, ~INR - Anti Coag Clinic 2.8 (0.9-1.1)
--- OUTSIDE RECORDS SUMMARY | 2025-03-06 11:55 | XMS_ITS | Continuity of Care Document ---
Author Name [facility] Organization [facility] Care Team Providers Care Tobacco Weigher Name Role Phone [facility] Unavailable Unavailable Problems Combined list of problems from Department of Defense and Veterans Affairs facilities. It does not include entries that were removed or entered in error. Problem Status Onset Date Problem Type Date of Resolution Comments Source Abdominal aortic aneurysm Active Condition Mar 10, 2017 Entered By: ASHLEY SMALL Comment: 02/2014 - 4.2cmJun 2016 Entered By: ASHLEY SMALL Comment: 02/2016 - [facility] - cmJul 2017 Entered By: ASHLEY SMALL Comment: 01/2018 - 4.6cm - [facility] ALCOHOL ABUSE-UNSPEC Active Condition [place] Chronic atrial fibrillation (SNOMED CT 312352890) Active Condition [place] Colonoscopy Screening Active Condition Mar 10, 2017 Entered By: ASHLEY SMALL Comment: 2006 - + polyps - 2011 - +polypsJun 2016 Entered By: ASHLEY SMALL Comment: 01/2016 - normal - Dr Argueta - F/U 5 years (2020)Mar 19, 2021 Entered By: ASHLEY SMALL Comment: 07/04/20 - post-polype ctomy scar in rectum - Dr Ignacio Eng - repeat 3 yrs [place] Exsmoker Active Condition Mar 19, 2021 Entered By: ASHLEY SMALL Comment: Quit 1998 - < 1 PPD x 25 yrs [place] [facility] Hematuria Active Condition Mar 10, 2017 Entered By: ASHLEY SMALL Comment: Chronic [place] Hypertension Active [facility] Knee pain (SNOMED CT 16077172) Active Condition [place] Mixed hyperlipidemia [facility] (SNOMED CT 039991048) Active Condition [place] Primary Care Physician Active Condition Mar 10, 2017 Entered By: ASHLEY SMALL Comment: Dr Bolanos [place] [facility] Sciatica Active Condition Jun 24, 2016 Entered By: AJAY GUPTA MD Comment: [facility] Sensorineural Hearing Loss * (ICD-9-CM 389.10) Active Condition [facility] Sleep apnea Active Condition February 19, 2009 Entered By: KINGS PAVON Comment: CPAP 10cm [place] Tinnitus Active Condition [place] Type 2 diabetes mellitus Active Condition [place] TOBACCO USE DISORDER Inactive Condition 11/18/2006 [place] Vertigo/Dizziness Inactive Condition 05/13/2008 [place] Medications Combined list of outpatient medications from Department of Defense and [facility] Affairs facilities.Medications provided include 1) outpatient medications from the last 15 months, and 2) patient-reported medications. Medication Details Route Status Patient Instructions Prescription Expires Prescription Number Last Dispense Date Ordering Provider Order Date Order Qty Source ASPIRIN 81MG TAB,EC TAKE ONE TABLET BY MOUTH EVERY DAY ORAL ACTIVE GABY PAVON 2007 [facility] IELD DOCUSATE NA 100MG CAP TAKE 1 CAPSULE BY MOUTH EVERY DAY ORAL ACTIVE GABY PAVON 2007 [facility] IELD HYDROCHLORO THIAZIDE 25MG TAB TAKE ONE TABLET BY MOUTH ONCE DAILY ORAL ACTIVE INOCENCIO GUPTA MD 2015 [place] [facility] LISINOPRIL 5MG TAB TAKE ONE TABLET BY MOUTH ONCE DAILY ORAL ACTIVE INOCENCIO GUPTA MD 2015 [facility] METFORMIN HCL 500MG TAB TAKE ONE TABLET BY MOUTH TWICE DAILY ORAL ACTIVE NIKA SMALL SA 2020 [facility] METOPROLOL TARTRATE 50MG TAB TAKE ONE TABLET BY MOUTH TWICE DAILY ORAL ACTIVE NIKA SMALL SA 2020 [facility] SENNOSIDES 8.6MG TAB TAKE ONE TABLET BY MOUTH ONCE DAILY NEEDED ORAL ACTIVE NIKA SMALL SA 2020 [facility] SIMVASTATIN 80MG TAB TAKE ONE-HALF TABLET BY MOUTH ONCE DAILY ORAL ACTIVE NIKA SMALL SA 2020 [facility] SITAGLIPTIN PHOSPHATE [...] Site Reaction Lot Number CVX Code Drug Digital Retoucher Status Comments Source INFLUENZA VACCINE, QUADRIVALENT, ADJUVANTED [...] ADM Date DC Date Status Disposition Source [place] [facility] Outpatient Encounter [id number] 11/24 [place] [facility] Social History Combined list of available smoking, tobacco, and other social history from Department of Defense and Veterans Affairs facilities. Social History Type Response Date Comment Sourc e Tobacco smoking status [place]-TOBACCO FORMER USER 03/19/2021 [place] History of tobacco use IN-TOBACCO QUIT 15 YRS OR MORE 03/19/2021 [place] History of tobacco use IN-TOBACCO FORMER USER 03/29/2019 [place] History of tobacco use LIFETIME NON-TOBACCO USER 02/28/2018 [place] History of tobacco use QUIT TOBACCO USE > 7 YEARS AGO 03/03/2017 cigarettes 1/2 pack a day quit 18 years ago [place] History of tobacco use QUIT TOBACCO USE > 7 YEARS AGO 09/22/2015 [place] History of tobacco use QUIT TOBACCO USE > 7 YEARS AGO 05/01/2010 [place] History of tobacco use QUIT TOBACCO USE 1-7 YEARS AGO 07/18/2009 Patient quit tabacco use in 2000. [place] History of tobacco use QUIT TOBACCO USE 1-7 YEARS AGO 05/13/2008 [place] History of tobacco use QUIT TOBACCO USE IN PAST YEAR 08/07/2007 [place] History of tobacco use QUIT TOBACCO USE 1-7 YEARS AGO 11/18/2006 Pt. has not smokesd since 2000. [place] History of tobacco use QUIT TOBACCO USE 1-7 YEARS AGO 12/17/2005 Quit x 5yrs [place]
== END 2025-03-06 11:26 | disposition home or self-care (01) ==
LOC: HO.ACS 10:49
PROVIDERS: PCP Internal Medicine; Visit Provider Internal Medicine Medical Oncology
DX: Z79.01 Long term (current) use of anticoagulants (principal)

== ENCOUNTER → 2025-03-06 10:49 | Outpatient (BNVA) | payer MEDICARE, SELFPAY | PROVIDERS: PCP Internal Medicine; Visit Provider Internal Medicine Medical Oncology | DX: I48.0 Paroxysmal atrial fibrillation (principal); Z79.01 Long term (current) use of anticoagulants; Z51.81 Encounter for therapeutic drug level monitoring | CPT/HCPCS: 85610; 99211 ==

== ENCOUNTER 2025-04-10 11:00 | Outpatient (AMB) | payer MEDICARE, SELFPAY ==
--- OUTSIDE RECORDS SUMMARY | 2023-11-24 11:57 | XMS_ITS | Continuity of Care Document ---
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 It does not include entries that were removed or entered in error. Problem Status Onset Date Problem Type Date of Resolution Comments Source Abdominal aortic aneurysm Active Condition Mar 10, 2017 Entered By: ASHLEY SMALL Comment: 02/2014 - 4.2cmJun 2016 Entered By: ASHLEY SMALL Comment: 02/2016 - [facility] - cmJul 2017 Entered By: ASHLEY SMALL Comment: 01/2018 - 4.6cm - [facility] ALCOHOL ABUSE-UNSPEC Active Condition [place] Chronic atrial fibrillation (SNOMED CT 419083933) Active Condition [place] Colonoscopy Screening Active Condition Mar 10, 2017 Entered By: ASHLEY SMALL Comment: 2006 - + polyps - 2011 - +polypsJun 2016 Entered By: ASHLEY SMALL Comment: 01/2016 - normal - Dr Argueta - F/U 5 years (2020)Mar 19, 2021 Entered By: ASHLEY SMALL Comment: 07/04/20 - post-polype ctomy scar in rectum - Dr Ignacio Eng - repeat 3 yrs [place] Exsmoker Active Condition Mar 19, 2021 Entered By: ASHLEY SMALL Comment: Quit 1998 - < 1 PPD x 25 yrs [facility] Hematuria Active Condition Mar 10, 2017 Entered By: ASHLEY SMALL Comment: Chronic [place] Hypertension Active Condition [facility] Knee pain (SNOMED CT 71076787) Active Condition [place] Mixed hyperlipidemia [facility] Obesity (SNOMED CT 777780426) Active Condition [place] Primary Care Physician Active Condition Mar 10, 2017 Entered By: ASHLEY SMALL Comment: Dr Bolanos [facility] Sciatica Active Condition Jun 24, 2016 Entered By: AJAY GUPTA MD Comment: Right 2014 [facility] Sensorineural Hearing Loss * (ICD-9-CM 389.10) Active Condition [facility] Sleep apnea Active Condition February 19, 2009 Entered By: KINGS PAVON Comment: CPAP 10cm [place] Tinnitus Active Condition [place] Type 2 diabetes mellitus Active Condition [place] TOBACCO USE DISORDER Inactive Condition 11/18/2006 [place] Vertigo/Dizziness Inactive Condition 05/13/2008 [place] Medications Combined list of outpatient medications from Department of Defense and [facility] Affairs facilities.Medications provided include 1) outpatient medications from the last 15 months, and 2) patient-reported medications. Medication Details Route Status Patient Instructions Prescription Expires Prescription Number Last Dispense Date Ordering Provider Order Date Order Qty Source ASPIRIN 81MG TAB,EC TAKE ONE TABLET BY MOUTH EVERY DAY ORAL ACTIVE GABY PAVON 2007 [facility] IELD DOCUSATE NA 100MG CAP TAKE 1 CAPSULE BY MOUTH EVERY DAY ORAL ACTIVE GABY PAVON 2007 [facility] IELD HYDROCHLORO THIAZIDE 25MG TAB TAKE ONE TABLET BY MOUTH ONCE DAILY ORAL ACTIVE INOCENCIO GUPTA MD 2015 [facility] LISINOPRIL 5MG TAB TAKE ONE TABLET BY MOUTH ONCE DAILY ORAL ACTIVE INOCENCIO GUPTA MD 2015 [facility] METFORMIN HCL 500MG TAB TAKE ONE TABLET BY MOUTH TWICE DAILY ORAL ACTIVE NIKA SMALL SA 2020 [facility] METOPROLOL TARTRATE 50MG TAB TAKE ONE TABLET BY MOUTH TWICE DAILY ORAL ACTIVE NIKA SMALL SA 2020 [facility] SENNOSIDES 8.6MG TAB TAKE ONE TABLET BY MOUTH ONCE DAILY NEEDED ORAL ACTIVE NIKA SMALL SA 2020 [facility] SIMVASTATIN 80MG TAB TAKE ONE-HALF TABLET BY MOUTH ONCE DAILY ORAL ACTIVE NIKA SMALL SA 2020 [facility] SITAGLIPTIN PHOSPHATE [...] Site Reaction Lot Number CVX Code Drug Office Asst Status Comments Source INFLUENZA VACCINE, QUADRIVALENT, ADJUVANTED [...] ADM Date DC Date Status Disposition Source [facility] Outpatient Encounter [id number] 11/24 [facility] Social History Combined list of available smoking, tobacco, and other social history from Department of Defense and Veterans Affairs facilities. Social History Type Response Date Comment Sourc e Tobacco smoking status NHIS [place]-TOBACCO FORMER USER 03/19/2021 [place] History of tobacco use [place]-TOBACCO QUIT 15 YRS OR MORE 03/19/2021 [place] History of tobacco use [place]-TOBACCO QUIT 15 YRS OR MORE 03/29/2019 [place] History of tobacco use LIFETIME NON-TOBACCO USER 02/28/2018 [place] History of tobacco use QUIT TOBACCO USE > 7 YEARS AGO 03/03/2017 cigarettes 1/2 pack a day quit 18 years ago [place] History of tobacco use QUIT TOBACCO USE > 7 YEARS AGO 09/22/2015 [place] History of tobacco use QUIT TOBACCO USE > 7 YEARS AGO 05/01/2010 [place] History of tobacco use QUIT TOBACCO USE 1-7 YEARS AGO 07/18/2009 Patient quit tabacco use in 2000. [place] History of tobacco use QUIT TOBACCO USE 1-7 YEARS AGO 05/13/2008 [place] History of tobacco use QUIT TOBACCO USE IN PAST YEAR 08/07/2007 [place] History of tobacco use QUIT TOBACCO USE 1-7 YEARS AGO 11/18/2006 Pt. has not smokesd since 2000. [place] History of tobacco use QUIT TOBACCO USE 1-7 YEARS AGO 12/17/2005 Quit x 5yrs [place]
--- NOTE | 2025-04-10 11:10 | MHC.OFFVISCO ---
Intake Intake Visit Reasons: Anticoagulation Allergies No Known Allergies Allergy (Verified 04/10/25 11:06) Medication List - Last Reconciled 04/10/25 by Caterina Goldstein RN diltiazem HCl ER 180 mg PO QAM [Donut seat cushion As directed] hydrochlorothiazide 25 mg PO QAM insulin glargine (Lantus Solostar U-100 Insulin) 25 units subcut BEDTIME lisinopril 5 mg PO QAM metformin 1,000 mg PO BID metoprolol succinate ER 200 mg PO QAM omeprazole 20 mg PO QAM oxycodone-acetaminophen 5-325 mg (Percocet) 1 tab PO Q4-6H PRN semaglutide (Ozempic) 1 mg subcut QWEEK simvastatin 40 mg PO BEDTIME warfarin 5 mg See Protocol PO BEDTIME Nursing Note INR 3.3-? out of therapeutic range of 2-3 Medications and supplements reviewed Patient status: no c.o Medications or supplements: no changes Diet: appetite good, had more fresh tomatoes Denies any signs and symptoms of bleeding or clotting or unusual bruising Bleeding, bruising, clotting discussed Nutritional guidance given: eat a green today Dose: 2.5mg today then cont reg 7.5mg x 2, 5mg x 5 F/U INR Date : pt req 4 weeks? Patient verbalizing understanding of instructions given. 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
[2025-04-10 12:42] LABS: Prothrombin Time Whole Bld POC 39.2 sec (11.1-13.5); ~PT, ~INR - Anti Coag Clinic 3.3 (0.9-1.1)
== END 2025-04-10 11:17 | disposition home or self-care (01) ==
LOC: HO.ACS 11:00
PROVIDERS: PCP Internal Medicine; Visit Provider Internal Medicine Medical Oncology
DX: Z79.01 Long term (current) use of anticoagulants (principal)

== ENCOUNTER → 2025-04-10 11:00 | Outpatient (BNVA) | payer MEDICARE, SELFPAY | PROVIDERS: PCP Internal Medicine; Visit Provider Internal Medicine Medical Oncology | DX: I48.0 Paroxysmal atrial fibrillation (principal); Z79.01 Long term (current) use of anticoagulants; Z51.81 Encounter for therapeutic drug level monitoring | CPT/HCPCS: 85610; 99211 ==

== ENCOUNTER 2025-05-09 10:56 | Outpatient (AMB) | payer MEDICARE, SELFPAY ==
--- OUTSIDE RECORDS SUMMARY | 2023-11-24 11:57 | XMS_ITS | Continuity of Care Document ---
Author Name [facility] Organization [facility] Care Team Providers Care Count Team Clerk Name Role Phone [facility] Unavailable Unavailable Problems Combined list of problems from Department of Defense and Veterans Affairs facilities. It does not include entries that were removed or entered in error. Problem Status Onset Date Problem Type Date of Resolution Comments Source Abdominal aortic aneurysm Active Condition Mar 10, 2017 Entered By: ASHLEY SMALL Comment: 02/2014 - 4.2cmJun 2016 Entered By: ASHLEY SMALL Comment: 02/2016 - [facility] - cmJul 2017 Entered By: ASHLEY SMALL Comment: 01/2018 - 4.6cm - [facility] ALCOHOL ABUSE-UNSPEC Active Condition [place] Chronic atrial fibrillation (SNOMED CT 886182442) Active Condition [place] Colonoscopy Screening Active Condition Mar 10, 2017 Entered By: ASHLEY SMALL Comment: 2006 - + polyps - 2011 - +polypsJun 2016 Entered By: ASHLEY SMALL Comment: 01/2016 - normal - Dr Argueta - F/U 5 years (2020)Mar 19, 2021 Entered By: ASHLEY SMALL Comment: 07/04/20 - post-polype ctomy scar in rectum - Dr Ignacio Eng - repeat 3 yrs [place] Exsmoker Active Condition Mar 19, 2021 Entered By: ASHLEY SMALL Comment: Quit 1998 - < 1 PPD x 25 yrs [facility] Hematuria Active Condition Mar 10, 2017 Entered By: ASHLEY SMALL Comment: Chronic [place] Hypertension Active Condition [facility] Knee pain (SNOMED CT 22742479) Active Condition [place] Mixed hyperlipidemia [facility] Ob[facility] (SNOMED CT 683003148) Active Condition [place] Primary Care Physician Active Condition Mar 10, 2017 Entered By: ASHLEY SMALL Comment: Dr Bolanos [facility] Sciatica Active Condition Jun 24, 2016 Entered By: AJAY GUPTA MD Comment: Right 2014 [facility] Sensorineural Hearing Loss * (ICD-9-CM 389.10) Active Condition [facility] Sleep apnea Active Condition February 19, 2009 Entered By: KINGS PAVON Comment: CPAP 10cm [place] Tinnitus Active Condition [place] Type 2 diabetes mellitus Active Condition [place] TOBACCO USE DISORDER Inactive Condition 11/18/2006 [place] Vertigo/Dizziness Inactive Condition 05/13/2008 [place] Medications Combined list of outpatient medications from Department of Defense and [facility] Affairs facilities.Medications provided include 1) outpatient medications from the last 15 months, and 2) patient-reported medications. Medication Details Route Status Patient Instructions Prescription Expires Prescription Number Last Dispense Date Ordering Provider Order Date Order Qty Source ASPIRIN 81MG TAB,EC TAKE ONE TABLET BY MOUTH EVERY DAY ORAL ACTIVE GABY PAVON 2007 [facility] IELD DOCUSATE NA 100MG CAP TAKE 1 CAPSULE BY MOUTH EVERY DAY ORAL ACTIVE GABY PAVON 2007 [facility] IELD HYDROCHLORO THIAZIDE 25MG TAB TAKE ONE TABLET BY MOUTH ONCE DAILY ORAL ACTIVE INOCENCIO GUPTA MD 2015 [facility] LISINOPRIL 5MG TAB TAKE ONE TABLET BY MOUTH ONCE DAILY ORAL ACTIVE INOCENCIO GUPTA MD 2015 [facility] METFORMIN HCL 500MG TAB TAKE ONE TABLET BY MOUTH TWICE DAILY ORAL ACTIVE NIKA SMALL SA 2020 [facility] METOPROLOL TARTRATE 50MG TAB TAKE ONE TABLET BY MOUTH TWICE DAILY ORAL ACTIVE NIKA SMALL SA 2020 [facility] SENNOSIDES 8.6MG TAB TAKE ONE TABLET BY MOUTH ONCE DAILY NEEDED ORAL ACTIVE NIKA SMALL SA 2020 [facility] SIMVASTATIN 80MG TAB TAKE ONE-HALF TABLET BY MOUTH ONCE DAILY ORAL ACTIVE NIKA SMALL SA 2020 [facility] SITAGLIPTIN PHOSPHATE 100MG TAB TAKE ONE TABLET BY MOUTH ONCE DAILY ORAL ACTIVE NIKA SMALL SA 2020 [facility] WARFARIN NA 7.5MG TAB TAKE DIRECTED BY MOUTH EVERY DAY ORAL ACTIVE GABY PAVON 2007 [place] Immunizations Combined list of available immunizations from the Department of Defense and Veterans Affairs facilities. Immunization Series Date Given Administered By Site Reaction Lot Number CVX Code Drug Parking Analyst Status Comments Source INFLUENZA VACCINE, QUADRIVALENT, ADJUVANTED 2021 205 complet ed [facility] COVID-19 (MODERNA), MRNA, LNP-S, PF, 100 MCG/0.5 ML DOSE 2 2020 207 complet ed [facility] COVID-19 (MODERNA), MRNA, LNP-S, PF, 100 MCG/0.5 ML DOSE 1 2020 207 complet ed [facility] INFLUENZA, UNSPECIFIED FORMULATION 2019 88 complet ed [facility] INFLUENZA, SEASONAL, INJECTABLE 2016 141 complet ed Site: Left Deltoid [place] FLU,3 YRS (HISTORICAL) 2015 88 complet ed [facility] FLU,3 YRS (HISTORICAL) 2014 88 complet ed cvs [facility] PNEUMOCOCCAL CONJUGATE PCV 13 2014 133 complet ed verbal from patient [facility] FLU,3 YRS (HISTORICAL) 2013 88 complet ed Site: Left Deltoid [place] FLU,3 YRS (HISTORICAL) 2012 88 complet ed [facility] FLU,3 YRS (HISTORICAL) 2010 88 complet ed Site: Right Deltoid [place] DTAP, UNSPECIFIED FORMULATION 2010 107 complet ed Site: Left Deltoid [place] FLU,3 YRS (HISTORICAL) 2009 88 complet ed [facility] FLU,3 YRS (HISTORICAL) 2009 88 complet ed [facility] PNEUMOCOCCAL, UNSPECIFIED FORMULATION 2009 109 complet ed [place] NOVEL INFLUENZA-H1N 1-09, ALL FORMULATIONS 2008 128 complet ed [facility] ZOSTER LIVE 2008 MILY ROBLES 121 complet ed [place] FLU,3 YRS (HISTORICAL) 2008 88 complet ed Site: Left Deltoid [place] FLU,3 YRS (HISTORICAL) 2007 88 complet ed [facility] FLU,3 YRS (HISTORICAL) 2007 88 complet ed Site: Left Deltoid [place] FLU,3 YRS (HISTORICAL) 2006 88 complet ed Site: Right Deltoid [place] TD(ADULT) UNSPECIFIED FORMULATION 1999 ROME PÉREZ 139 comple t ed [place] Encounters Combined list of: 1) Encounters from Department of Veterans Affairs facilities going backup to the last 18 months, not all VA inpatient encounters are included; 2) Encounters from the Department of Defense facilities going backup to 280 months. Location Location Details Encounter Type Encounter Number Reason For Visit Attending Provider ADM Date DC Date Status Disposition Source [facility] Outpatient Encounter [id number] 11/24 [facility] Social History Combined list of available smoking, tobacco, and other social history from Department of Defense and Veterans Affairs facilities. Social History Type Response Date Comment Sourc e Tobacco smoking status NHIS [place]-TOBACCO FORMER USER 03/19/2021 [place] History of tobacco use [place]-TOBACCO QUIT 15 YRS OR MORE 03/19/2021 [place] History of tobacco use [place]-TOBACCO QUIT 15 YRS OR MORE 03/29/2019 [place] History of tobacco use LIFETIME NON-TOBACCO USER 02/28/2018 [place] History of tobacco use QUIT TOBACCO USE > 7 YEARS AGO 03/03/2017 cigarettes 1/2 pack a day quit 18 years ago [place] History of tobacco use QUIT TOBACCO USE > 7 YEARS AGO 09/22/2015 [place] History of tobacco use QUIT TOBACCO USE > 7 YEARS AGO 05/01/2010 [place] History of tobacco use QUIT TOBACCO USE 1-7 YEARS AGO 07/18/2009 Patient quit tabacco use in 2000. [place] History of tobacco use QUIT TOBACCO USE 1-7 YEARS AGO 05/13/2008 [place] History of tobacco use QUIT TOBACCO USE IN PAST YEAR 08/07/2007 [place] History of tobacco use QUIT TOBACCO USE 1-7 YEARS AGO 11/18/2006 Pt. has not smokesd since 2000. [place] History of tobacco use QUIT TOBACCO USE 1-7 YEARS AGO 12/17/2005 Quit x 5yrs [place]
[2025-05-09 11:04] LABS: Prothrombin Time Whole Bld POC 22.5 sec (11.1-13.5); ~PT, ~INR - Anti Coag Clinic 1.9 (0.9-1.1)
--- NOTE | 2025-05-09 11:15 | MHC.OFFVISCO ---
Intake Intake Visit Reasons: Anticoagulation Allergies No Known Allergies Allergy (Verified 05/09/25 10:59) Medication List - Last Reconciled 05/09/25 by Linda Mina RN diltiazem HCl ER 180 mg PO QAM [Donut seat cushion As directed] hydrochlorothiazide 25 mg PO QAM insulin glargine (Lantus Solostar U-100 Insulin) 25 units subcut BEDTIME lisinopril 5 mg PO QAM metformin 1,000 mg PO BID metoprolol succinate ER 200 mg PO QAM omeprazole 20 mg PO QAM oxycodone-acetaminophen 5-325 mg (Percocet) 1 tab PO Q4-6H PRN semaglutide (Ozempic) 1 mg subcut QWEEK simvastatin 40 mg PO BEDTIME warfarin 5 mg See Protocol PO BEDTIME Nursing Note NO MISSED DOSES,CP,SOB OR SX OF BLEEDING. BOOST TO 7.5MGM TODAY THEN RESUME USUAL DOSING AND FOLLOW-UP IN 4 WEEKS. GOOD UNDERTANDING OF DOSING INSTR. 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
== END 2025-05-09 12:49 | disposition home or self-care (01) ==
LOC: HO.ACS 10:56
PROVIDERS: PCP Internal Medicine; Visit Provider Internal Medicine Medical Oncology
DX: Z79.01 Long term (current) use of anticoagulants (principal)

== ENCOUNTER → 2025-05-09 10:56 | Outpatient (BNVA) | payer MEDICARE, SELFPAY | PROVIDERS: PCP Internal Medicine; Visit Provider Internal Medicine Medical Oncology | DX: I48.0 Paroxysmal atrial fibrillation (principal); Z79.01 Long term (current) use of anticoagulants; Z51.81 Encounter for therapeutic drug level monitoring | CPT/HCPCS: 85610; 99211 ==

== ENCOUNTER 2025-06-06 10:56 | Outpatient (AMB) | payer MEDICARE, SELFPAY ==
--- OUTSIDE RECORDS SUMMARY | 2023-11-24 11:57 | XMS_ITS | Continuity of Care Document ---
Author Name [facility] Organization [facility] Care Team Providers Care Receiving Specialist Name Role Phone [facility] Unavailable Unavailable Problems Combined list of problems from Department of Defense and Veterans Affairs facilities. It does not include entries that were removed or entered in error. Problem Status Onset Date Problem Type Date of Resolution Comments Source Abdominal aortic aneurysm Active Condition Mar 10, 2017 Entered By: ASHLEY SMALL Comment: 02/2014 - 4.2cmJun 2016 Entered By: ASHLEY SMALL Comment: 02/2016 - [facility] - cmJul 2017 Entered By: ASHLEY SMALL Comment: 01/2018 - 4.6cm - [facility] ALCOHOL ABUSE-UNSPEC Active Condition [place] Chronic atrial fibrillation (SNOMED CT 113031602) Active Condition [place] Colonoscopy Screening Active Condition Mar 10, 2017 Entered By: ASHLEY SMALL Comment: 2006 - + polyps - 2011 - +polypsJun 2016 Entered By: ASHLEY SMALL Comment: 01/2016 - normal - Dr Argueta - F/U 5 years (2020)Mar 19, 2021 Entered By: ASHLEY SMALL Comment: 07/04/20 - post-polype ctomy scar in rectum - Dr Ignacio Eng - repeat 3 yrs [place] Exsmoker Active Condition Mar 19, 2021 Entered By: ASHLEY SMALL Comment: Quit 1998 - < 1 PPD x 25 yrs [facility] Hematuria Active Condition Mar 10, 2017 Entered By: ASHLEY SMALL Comment: Chronic [place] Hypertension Active Condition [facility] Knee pain (SNOMED CT 97388919) Active Condition [place] Mixed hyperlipidemia Active Condition [facility] Obesity (SNOMED CT 120021050) Active Condition [place] Primary Care Physician Active Condition Mar 10, 2017 Entered By: ASHLEY SMALL Comment: Dr Bolanos [facility] Sciatica Active Condition Jun 24, 2016 Entered By: AJAY GUPTA MD Comment: Right 2014 [facility] Sensorineural Hearing Loss * (ICD-9-CM 389.10) Active Condition [facility] Sleep apnea Active Condition February 19, 2009 Entered By: KINGS PAVON Comment: CPAP 10cm [place] Tinnitus Active Condition [place] Type 2 diabetes mellitus Active Condition [place] TOBACCO USE DISORDER Inactive Condition 11/18/2006 [place] Vertigo/Dizziness Inactive Condition 05/13/2008 [place] Medications Combined list of outpatient medications from Department of Defense and [facility] Affairs facilities.Medications provided include 1) outpatient medications from the last 15 months, and 2) patient-reported medications. Medication Details Route Status Patient Instructions Prescription Expires Prescription Number Last Dispense Date Ordering Provider Order Date Order Qty Source ASPIRIN 81MG TAB,EC TAKE ONE TABLET BY MOUTH EVERY DAY ORAL ACTIVE GABY PAVON [address] [facility] IELD DOCUSATE NA 100MG CAP TAKE 1 CAPSULE BY MOUTH EVERY DAY ORAL ACTIVE GABY PAVON [address] [facility] IELD HYDROCHLORO THIAZIDE 25MG TAB TAKE ONE TABLET BY MOUTH ONCE DAILY ORAL ACTIVE INOCENCIO GUPTA MD 2015 [facility] LISINOPRIL 5MG TAB TAKE ONE TABLET BY MOUTH ONCE DAILY ORAL ACTIVE INOCENCIO GUPTA MD 2015 [facility] METFORMIN HCL 500MG TAB TAKE ONE TABLET BY MOUTH TWICE DAILY ORAL ACTIVE NIKA SMALL SA 2020 [facility] METOPROLOL TARTRATE 50MG TAB TAKE ONE TABLET BY MOUTH TWICE DAILY ORAL ACTIVE NIKA SMALL SA 2020 [facility] SENNOSIDES 8.6MG TAB TAKE ONE TABLET BY MOUTH ONCE DAILY NEEDED ORAL ACTIVE NIKA SMALL SA 2020 [facility] SIMVASTATIN 80MG TAB TAKE ONE-HALF TABLET BY MOUTH ONCE DAILY ORAL ACTIVE NIKA SMALL SA 2020 [facility] SITAGLIPTIN PHOSPHATE [...] Site Reaction Lot Number CVX Code 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 Social History Type Response Date Comment Sourc e Tobacco smoking status NHIS [place]-TOBACCO FORMER USER 03/19/2021 [place] History of tobacco use [place]-TOBACCO QUIT 15 YRS OR MORE 03/19/2021 [place] History of tobacco use [place]-TOBACCO QUIT 15 YRS OR MORE 03/29/2019 [place] History of tobacco use LIFETIME NON-TOBACCO USER 02/28/2018 [place] History of tobacco use QUIT TOBACCO USE > 7 YEARS AGO 03/03/2017 cigarettes 1/2 pack a day quit 18 years ago [place] History of tobacco use QUIT TOBACCO USE > 7 YEARS AGO 09/22/2015 [place] History of tobacco use QUIT TOBACCO USE > 7 YEARS AGO 05/01/2010 [place] History of tobacco use QUIT TOBACCO USE 1-7 YEARS AGO 07/18/2009 Patient quit tabacco use in 2000. [place] History of tobacco use QUIT TOBACCO USE 1-7 YEARS AGO 05/13/2008 [place] History of tobacco use QUIT TOBACCO USE IN PAST YEAR 08/07/2007 [place] History of tobacco use QUIT TOBACCO USE 1-7 YEARS AGO 11/18/2006 Pt. has not smokesd since 2000. [place] History of tobacco use QUIT TOBACCO USE 1-7 YEARS AGO 12/17/2005 Quit x 5yrs [place]
[2025-06-06 11:01] LABS: Prothrombin Time Whole Bld POC 29.7 sec (11.1-13.5); ~PT, ~INR - Anti Coag Clinic 2.5 (0.9-1.1)
--- NOTE | 2025-06-06 11:08 | MHC.OFFVISCO ---
Intake Intake Visit Reasons: Anticoagulation Allergies No Known Allergies Allergy (Verified 06/06/25 10:57) Medication List - Last Reconciled 06/06/25 by Irlanda Locke RN diltiazem HCl ER 180 mg PO QAM [Donut seat cushion As directed] hydrochlorothiazide 25 mg PO QAM insulin glargine (Lantus Solostar U-100 Insulin) 25 units subcut BEDTIME lisinopril 5 mg PO QAM metformin 1,000 mg PO BID metoprolol succinate ER 200 mg PO QAM omeprazole 20 mg PO QAM oxycodone-acetaminophen 5-325 mg (Percocet) 1 tab PO Q4-6H PRN semaglutide (Ozempic) 1 mg subcut QWEEK simvastatin 40 mg PO BEDTIME warfarin 5 mg See Protocol PO BEDTIME Nursing Note INR: 2.5 in therapeutic range Medications and supplements reviewed No changes in health, diet, medications, or supplements, Denies any signs and symptoms of bleeding or bruising or clotting. Bleeding, bruising, clotting discussed Nutritional guidance given Dose: 7.5MG X 2 DAYS. 5MG X 5 DAYS F/U INR: 1 MONTH Patient verbalizes understanding of instructions given Anti-Coag Initial Assessment Social Hx Patient Tobacco Use Status: Former Tobacco user Tobacco use type: Cigarette Alcohol intake frequency: does not drink Questionnaires HAS-BLED Does the patient had uncontrolled Hypertension?: No Does the patient have renal disease?: No Does the patient have liver disease?: No Does the patient have a history of stroke?: No Has the patient had major bleeding or predisposition to bleeding?: Yes (AAA) Does the patient have labile INRs?: No (on ozempic now and can effect the INR ) Is the patient over 65 years of age?: Yes Is the patient on medications that gives them a predisposition to bleeding?: Yes Does the patient use alcohol?: No HAS-BLED Score: 3 CHADSVASC Age: 75 or over Gender: Male Does the patient have a history of CHF?: No Does the patient have a history of Hypertension?: Yes Does the patient have a history of Stroke/TIA/Thromboembolism?: No Does the patient have a history of Vascular Disease (prior PR, PAD or aortic plaque)?: Yes (PAS , AAA) Does the patient have a history of Diabetes?: Yes CHADS VACS Score: 5 Delfino Prediction Score Rsk VTE Active Cancer: No Previous VTE, excluding superficial vein thrombosis: No Reduced mobility: No Already known Thrombophilic Condition: No With-in last month Trauma and/or Surgery: No Elderly 70 year or older: Yes Heart and/or Respiratory Failure: No Acute Myocardial infarction and/or Ischemic Stroke: No Acute Infection and/or Rheumatologic Disorder: No Obesity (BMI 30 or greater): Yes (loosing weight now - lost 40 lbs - ON OZEMPIC) Ongoing Hormonal Treatment: No Score: 2 Delfino Score less than 4; Low Risk of VTE Delfino Score 4 or greater; High Risk of VTE Coding Level of Care Code Est Patient Level 1 Diagnoses Current use of anticoagulant therapy Z79.01 Assessment & Plan Assessment & Plan (1) Current use of anticoagulant therapy: Code(s): 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
== END 2025-06-06 11:16 | disposition home or self-care (01) ==
LOC: HO.ACS 10:56
PROVIDERS: PCP Internal Medicine; Visit Provider Internal Medicine Medical Oncology
DX: Z79.01 Long term (current) use of anticoagulants (principal)

== ENCOUNTER → 2025-06-06 10:56 | Outpatient (BNVA) | payer MEDICARE, SELFPAY | PROVIDERS: PCP Internal Medicine; Visit Provider Internal Medicine Medical Oncology | DX: Z51.81 Encounter for therapeutic drug level monitoring (principal); Z79.01 Long term (current) use of anticoagulants | CPT/HCPCS: 85610; 99211 ==

== ENCOUNTER 2025-07-04 10:42 | Outpatient (AMB) | payer MEDICARE, SELFPAY ==
[2025-07-04 10:58] LABS: Prothrombin Time Whole Bld POC 29.1 sec (11.1-13.5); ~PT, ~INR - Anti Coag Clinic 2.4 (0.9-1.1)
--- NOTE | 2025-07-04 11:03 | MHC.OFFVISCO ---
Intake Intake Visit Reasons: Anticoagulation Allergies No Known Allergies Allergy (Verified 07/04/25 10:53) Medication List - Last Reconciled 07/04/25 by Latoya Bunn RN diltiazem HCl ER 180 mg PO QAM [Donut seat cushion As directed] hydrochlorothiazide 25 mg PO QAM insulin glargine (Lantus Solostar U-100 Insulin) 25 units subcut BEDTIME lisinopril 5 mg PO QAM metformin 1,000 mg PO BID metoprolol succinate ER 200 mg PO QAM omeprazole 20 mg PO QAM oxycodone-acetaminophen 5-325 mg (Percocet) 1 tab PO Q4-6H PRN semaglutide (Ozempic) 1 mg subcut QWEEK simvastatin 40 mg PO BEDTIME warfarin 5 mg See Protocol PO BEDTIME Nursing Note INR: 2.4 in therapeutic range of 2-3 Medications and supplements reviewed No changes in health, diet, medications, or supplements, Denies any signs and symptoms of bleeding or bruising or clotting. Bleeding, bruising, clotting discussed Nutritional guidance given Dose: keep same dose of 5mg X 5 days and 7.5mg on Tues & Fri. 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
== END 2025-07-04 11:05 | disposition home or self-care (01) ==
LOC: HO.ACS 10:42
PROVIDERS: PCP Internal Medicine; Visit Provider Internal Medicine Medical Oncology
DX: Z79.01 Long term (current) use of anticoagulants (principal)

== ENCOUNTER → 2025-07-04 10:42 | Outpatient (BNVA) | payer MEDICARE, SELFPAY | PROVIDERS: PCP Internal Medicine; Visit Provider Internal Medicine Medical Oncology | DX: Z51.81 Encounter for therapeutic drug level monitoring (principal); Z79.01 Long term (current) use of anticoagulants | CPT/HCPCS: 85610; 99211 ==

== ENCOUNTER 2025-08-01 10:54 | Outpatient (AMB) | payer MEDICARE, SELFPAY ==
[2025-08-01 10:59] LABS: Prothrombin Time Whole Bld POC 30.7 sec (11.1-13.5); ~PT, ~INR - Anti Coag Clinic 2.6 (0.9-1.1)
--- NOTE | 2025-08-01 11:00 | MHC.OFFVISCO ---
Intake Intake Visit Reasons: Anticoagulation Allergies No Known Allergies Allergy (Verified 08/01/25 10:56) Medication List - Last Reconciled 08/01/25 by Latoya Bunn RN diltiazem HCl ER 180 mg PO QAM [Donut seat cushion As directed] hydrochlorothiazide 25 mg PO QAM insulin glargine (Lantus Solostar U-100 Insulin) 25 units subcut BEDTIME lisinopril 5 mg PO QAM metformin 1,000 mg PO BID metoprolol succinate ER 200 mg PO QAM omeprazole 20 mg PO QAM oxycodone-acetaminophen 5-325 mg (Percocet) 1 tab PO Q4-6H PRN semaglutide (Ozempic) 1 mg subcut QWEEK simvastatin 40 mg PO BEDTIME warfarin 5 mg See Protocol PO BEDTIME Nursing Note INR: 2.6 in therapeutic range of 2-3 Medications and supplements reviewed No changes in health, diet, medications, or supplements, Denies any signs and symptoms of bleeding or bruising or clotting. 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
--- OUTSIDE RECORDS SUMMARY | 2025-08-01 13:28 | XMS_ITS | Data Portability ---
Author Organization [facility], Allergy Address [address] [address] Care Team Providers Care Mucker Cofferdam Name Role Phone TIFF CAPONE Primary Care [...] up in 4 months for routine debridement. [email or web address] Not available 09/20/2024 09:04:56 01/21/2025 01/21/2025 79 year old male with bilateral hearing [facility] presents for [facility]umen removal. Impacted cerumen removed bilaterally. Bilateral TMs are intact. Follow up in 4 months for routine debridement, or sooner with concerns. [email or web address] Not available 01/21/2025 11:26:58 07/09/2025 07/09/2025 80-year-old male with profound left-sided hearing loss presents for routine cerumen removal. Cerumen impactions were removed from bilateral external auditory canals without difficulty. TMs are normal to inspection. Patient reports hearing returned to baseline. He wears BiCROS technology, and recommend follow-up as needed at the [facility] for adjustments. Patient will return in 3 months for repeat cerumen debridement. [email or web address] Not available 07/09/2025 14:55:00 Plan of Treatment Reminders Order Date Submit Date Provider Last Modified By Organization Details Last Modified Time Details Appointments Establish ed 15 2025 02:15P M JOAN ALBARADO PA-C Not available Not available Not available Lab None recorded. Referral None recorded. Procedures None recorded. Surgeries None recorded. Imaging None recorded. Medication Orders None recorded. Patient TargetsNo targets recorded. Patient InstructionsNo instructions recorded. Reason for Referral None Reported. Problems Name Problem SNOMED Code Status Onset Date Resolution Date Notes Provider Name and Address Organization Details Recorded Time Impacted cerumen of bilateral ears 287660593798 9108 Active 2022 Impacted cerumen, bilateral ; Note: Date Diagnosed : 04/04/2023 3:51 PM (H61.23) JOAN ALBARADO PA-C 100 [facility],[address], [address], [facility] - [facility] 14:55:02 Sensorine ural hearing loss of bilateral ears 608846612 Active 2022 Sensorine ural hearing loss, bilateral ; Note: Date Diagnosed : 04/04/2023 4:56 PM (H90.3) JOAN ALBARADO PA-C 100 [facility],[address], [address], [facility] - [facility] 14:55:04 Problem Notes None recorded. Procedures Surgical History Date Name Laterality Status Provider Name and Address Organization Details Recorded Time Cerumen removal without microscope bilat completed JOAN ALBARADO PA-C 100 [facility],[address], [address], [facility] - [facility] 07/09/2025 14:53:39 Cerumen removal without microscope bilat completed LEXI RAINEY PA-C 100 [facility],[address], [address], [facility] - [facility] 01/21/2025 11:12:24 4 Cerumen removal without microscope bilat completed LEXI RAINEY PA-C 100 [facility],[place] [address], [place], [address], [place] - [facility] 09/20/2024 09:04:36 4 Cerumen removal with microscope left completed Nadege Lopez [place] - [facility] 07/04/2024 11:06:08 4 Cerumen removal without microscope right completed Nadege Lopez [place] - [facility] 07/04/2024 11:05:50 Imaging Results None recorded. Procedure Notes None recorded. Medical Equipment None Reported. Allergies No known drug allergies Medications Name Sig Start Date Stop Date Status Note LastModified by Organization Details LastModified Time ofloxacin 0.3 % eye drops INSTILL 1 DROP IN RIGHT EYE FOUR TIMES DAILY active Not Available Not Available No t Available metoprolol succinate ER 200 mg tablet,exte nded release 24 hr TAKE 1 TABLET BY MOUTH DAILY active Not Available Not Available No t Available digoxin 250 mcg (0.25 mg) tablet TAKE 1 TABLET BY MOUTH EVERY DAY active Not Available Not Available No t Available simvastatin 40 mg tablet active Not Available Not Available Not Available ketorolac 0.5 % eye drops INSTILL 1 DROP IN RIGHT EYE FOUR TIMES DAILY active Not Available Not Available No t Available metformin 1,000 mg tablet active Not [...] 180 mg tablet,exte nded release 24 hr TAKE 1 TABLET BY MOUTH DAILY active Not Available Not Available No t [...] mg/3 mL) subcutaneou s pen injector INJECT 1 MG UNDER THE SKIN EVERY WEEK active Not Available Not Available No t Available Ozempic 0.25 mg or 0.5 mg (2 mg/3 mL) subcutaneou s pen injector INJECT 0.25 MG SUBCUTANE OSLY ONCE WEEKLY 09/20 completed Not Available Not Available Not Available Ultra-Fine Pen Needle 31 gauge x 3/16 USE ONE NEEDLE SUBCUTANE OUSLY AT BEDTIME. active Not Available Not Available No t Available Vitals Date Recorded Body height Provider Name an d Address Organization Details Last Updated DateTime 01/21/2025 172.72 cm VICKI GRULLON [place] - [facility] 01/21/2025 11:14:16 Date Recorded Body height Body mass index (BMI) Body weight Provider Name and Address Organization Details Last Updated DateTime 07/04/2024 172.72 cm 35 kg/m2 867321.25 g Myrtle Bran [place] - [facility] 07/04/2024 10:22:57 Date Recorded Body height Body mass index (BMI) Body weight Provider Name and Address Organization Details Last Updated DateTime 07/09/2025 172.72 cm 35 kg/m2 756767.25 g Little De Leon [place] - [facility] 07/09/2025 14:20:29 Date Recorded Body height Body weight Provider Name and Address Organization Details Last Updated DateTime 09/20/2024 172.72 cm 580295.25 g Marina Okeefe [place] - [facility] 09/20/2024 08:52:51 Social History None recorded. Functional Status None recorded. Mental Status None recorded. Family History Nothing Reported. Medical History Condition Response Diabetes Y Hypertension Y High Cholesterol Y Past Encounters Encounter ID Performer Location Encounter Start Date Encounter Closed Date Diagnosis/Indication Diagnosis SNOMED-CT Code Diagnosis ICD10 Code Diagnosis IMO Codes Diagnosis Note [id number] NADEGE LOPEZ PA-C [facility] [address] [place] [address] 07/04/2024 10:10:59 07/04/2024 11:00:57 Impacted cerumen of bilateral ears 9222321452 991732 H61.23 Sensorineu ral hearing loss of bilateral ears 261819019 H90.3 [id number] LEXI RAINEY PA-C [facility] [address] [place] [address] 09/20/2024 08:43:17 09/20/2024 09:16:52 Impacted cerumen of bilateral ears 8683845421 110791 H61.23 [id number] LEXI RAINEY PA-C [facility] [address] [place] [address] 01/21/2025 11:09:38 01/21/2025 11:26:06 Impacted cerumen of bilateral ears 8247641878 612714 H61.23 [id number] JOAN ALBARADO PA-C [facility] [address] [place] [address] 07/09/2025 14:16:33 07/09/2025 14:41:14 Impacted cerumen of bilateral ears 6107573225 200759 H61.23 Sensorineu ral hearing loss of bilateral ears 902571989 H90.3 Health Concerns Section Related Observation LastModified by Organization Detai ls LastModified Time None Recorded Concern Status LastModified by Organization Details LastModified Time None Recorded Advance Directives Directive None Recorded Payers Insurance Date Sequence Insurance Name Policy Number Policy Reeves Covered Member ID Reeves Member ID Guarantor Name 07/09/2025 1 [facility] (MEDICARE REPLACEMENT/A DVANTAGE - HMO) [id number] Ignacio King [id number] Ignacio King Notes Date Note Type Note Provider Name and Address Organization Details Recorded Time 07/04/2024 text/html ROS as noted in the HPI 79 year old male presents to the office for routine ear cleaning. He has known profound hearing loss on the left. He [facility] but admits that he does not use them much. He denies otalgia and otorrhea. LAURA BALLESTEROS MD 100 [facility],[address], [address], [facility] - [facility] 07/04/2024 12:40:29 09/20/2024 text/html ROS as noted in the [facility] 79 year old male presents for cerumen removal. History of profound left sided hearing loss. [facility]. Denies otalgia, otorrhea, or hearing loss. TON BENJAMIN MD 100 [facility],[address], [address], [facility] - [facility] 09/21/2024 07:47:45 01/21/2025 text/html ROS as noted in the [facility] 79 year old male presents for cerumen removal. History of profound left sided hearing loss. [facility]. Reports intermittent itching of the ears, but denies otalgia, otorrhea, or hearing loss. TON BENJAMIN MD 100 [facility],[address], [address], [facility] - [facility] 01/22/2025 16:24:19 07/09/2025 text/html ROS as noted in the [facility] 80-year-old male with profound left-sided hearing loss presents for routine cerumen removal. He wears BiCROS [facility]. He reports right sided ear itchiness. No other acute concerns. TON BENJAMIN MD 100 [facility],[address], [address], [facility] - [facility] 07/15/2025 13:08:21
--- OUTSIDE RECORDS SUMMARY | 2025-08-01 13:28 | XMS_ITS | Clinical Summary ---
Author Organization [facility] Address [address] [address] Phone Care Team Providers Care Regulatory Coordinator Name Role Phone Sydney Bolanos MD Primary Care Provider [phone] Encounters Date Type Department Care Team Description 07/24/[address] [place] [address] Sydney Bolanos MD 07/24/[address] [place] [address] Sydney Bolanos MD from Last 3 Months Surgical History Surgery Date Site/Laterality Comments CYSTOSCOPY PROCEDURE: HISTORICAL CYSTOSCOPY Medical History Medical History Date Comments Abdominal aortic aneurysm (A AA) greater than 39 mm in diameter ([facility]/HCC V24) 09/28/2018 DX:Abdominal aort ic aneurysm (AAA) greater than 39 mm in diameter (HCC) A-fib ([facility]/HCC V24, CMS/HCC V28) 03/20/2019 DX:A-fib (HCC) HTN (hypertension) 03/20/2019 DX:HTN (hyper tension) Hypercholesteremia 03/20/2019 DX:Hyperchole steremia Diabetes mellitus type 2, un complicated (CMS/HCC V24, CMS/HCC V28) 03/20/2019 DX:Diabetes mellitus type 2 , uncomplicated ([facility]); COMMENT: Diabetes listed on [facility] list. Hypertension DX:Hypertension Family History Medical History Relation Name Comments Stroke Father Other: cancer Mother Relation Name Status Comments Father Mother Social History Tobacco Use Types Packs/Day Years Used Date Smoking Tobacco: Former Cigarettes Q uit: 10/10/1998 Smokeless Tobacco: Never Alcohol Use Standard Drinks/Week Comments No 0 (1 standard drink = 0.6 oz pur e alcohol) Sex and Gender Information Value Date Recorded Sex Assigned at Not on file Legal Sex Male 11:47 AM EST Gender Identity Not on file Sexual Orientation Not on file Obstetrics History Last Filed Vital Signs Vital Sign Reading Time Taken Comments Blood Pressure 118/75 09/08/2023 9:46 AM EST Sit ting L Arm Pulse 90 04/01/2023 7:54 AM EDT Temperature - - Respiratory Rate - - Oxygen Saturation - - Inhaled Oxygen Concentration - - Weight 123 kg (272 lb) 09/08/2023 9:46 AM EST Height 170.2 cm (5' 7 ) 09/08/2023 9:46 AM EST Body Mass Index 42.6 09/08/2023 9:46 AM EST Plan of Treatment Health Maintenance Due Date Last Done Comments Diabetes: Annual GFR (Glomerular Filtration Rate) 1947 Diabetes: Annual Foot Exam 1957 Diabetes: Annual Retina Eye Exam 1957 Hepatitis A Vaccines (1 of 2 - Risk 2-dose series) 1966 Zoster Vaccines (2 of 3) 09/12/2009 07/18/2009 Pneumococcal Vaccine: 50+ Years (2 of 2 - PCV20 or PCV21) 06/10/2016 06/10/2015, 05/01/2010 DTaP,Tdap,and Td Vaccines (3 - Td or Tdap) 07/05/2021 07/05/2011, 01/25/2000 RSV Immunization Adult Patients (1 - 1-dose 75+ series) 2022 Cholesterol Screening (Lipid Panel) 09/07/2022 Falls Risk Assessment 09/07/2022 Hepatitis C Screening 09/07/2022 Medicare Annual Wellness Visit 09/07/2022 Social Influencers of Health Screening 09/07/2022 Diabetes: Annual Urine Albumin-Creatinine Ratio (uACR) 09/21/2022 Diabetes: Blood Sugar Control Test (HGBA1C) 09/21/2022 Hypertension/CHF/CAD Annual BMP Blood Test 09/21/2022 Depression Screening 10/10/2024 COVID-19 Vaccine ( - season) 2025 12/25/2020, 11/27/2020 Influenza Vaccine (#1) 2025 , 07/03/2020, 06/15/2017, Additional history exists HIB Vaccines Aged Out No longer eligi ble based on patient's age to complete this topic HPV Vaccines Aged Out No longer eligi ble based on patient's age to complete this topic Hepatitis B Vaccines Aged Out No long er eligible based on patient's age to complete this topic IPV Vaccines Aged Out No longer eligi ble based on patient's age to complete this topic MMR Vaccines Aged Out No longer eligi ble based on patient's age to complete this topic Meningococcal ACWY Vaccine Aged Out N o longer eligible based on patient's age to complete this topic Meningococcal B Vaccine Aged Out No l onger eligible based on patient's age to complete this topic RSV Immunization Patients Under 20 months Aged Out No longer eligible based on patient's age to complete this topic Varicella Vaccines Aged Out No longer eligible based on patient's age to complete this topic Insurance [facility] [id number] [employer] MEDICARE Care Teams Regulatory Coordinator Relationship Specialty Start Date End Date Sydney Bolanos MD [address] [place] [address] PCP - General Internal Medicine 10/04/12
== END 2025-08-01 11:03 | disposition home or self-care (01) ==
LOC: HO.ACS 10:54
PROVIDERS: PCP Internal Medicine; Visit Provider Internal Medicine Medical Oncology
DX: Z79.01 Long term (current) use of anticoagulants (principal)

== ENCOUNTER → 2025-08-01 10:54 | Outpatient (BNVA) | payer MEDICARE, SELFPAY | PROVIDERS: PCP Internal Medicine; Visit Provider Internal Medicine Medical Oncology | DX: I48.0 Paroxysmal atrial fibrillation (principal); Z51.81 Encounter for therapeutic drug level monitoring; Z79.01 Long term (current) use of anticoagulants | CPT/HCPCS: 85610; 99211 ==

== ENCOUNTER 2025-08-08 13:08 | Outpatient (AMB) | payer MEDICARE, SELFPAY ==
--- NOTE | 2025-08-08 13:11 | MHC.OFFVIS ---
Vital Signs 08/08/25 13:11 08/08/25 13:29 Height 5 ft 10 in 5 ft 10 in Weight 254 lb BMI 36.4 BP 123/65 Blood Pressure Location Rt brachial Position Sitting Pulse 97 Intake Visit Reasons: Boil on buttock Intake Note: This patient presents for an assessment for boil on buttock. Patient c/o: reports boil comes back on and off since last visit. At the moment not oozing, bleeding, pain. Hx of excision of subcutaneous perianal fistula~ May 2024. ARLIN: 08/23/2024 Scrap Materials Buyer Required: No Accompanied by: Self / Same As Patient Allergies No Known Allergies Allergy (Verified 08/08/25 13:27) Medication List - Last Reconciled 08/10/25 by Xavi Deleon MD diltiazem HCl ER 180 mg PO QAM [Donut seat cushion As directed] hydrochlorothiazide 25 mg PO QAM insulin glargine (Lantus Solostar U-100 Insulin) 25 units subcut BEDTIME lisinopril 5 mg PO QAM metformin 1,000 mg PO BID metoprolol succinate ER 200 mg PO QAM omeprazole 20 mg PO QAM semaglutide (Ozempic) 1 mg subcut QWEEK simvastatin 40 mg PO BEDTIME warfarin 5 mg See Protocol PO BEDTIME HPI HPI Boil on buttock: Details: 80-year-old male referred for a ?boil on the buttock?. He is known to me. He had this recurrent area of drainage and swelling in the right buttock and I had done some under anesthesia last May,. At that time he was noted to have a large subcutaneous fistula. I had unroof this and debrided this then. This did not seem to have any connection with the anal canal He had been doing well but has been noticing similar periodic swelling and drainage on the same area on the right buttock towards the perianal area. He says that he is happens every couple of months or so. [facility] Medical History Perianal abscess BPH (benign prostatic hyperplasia) GERD (gastroesophageal reflux disease) Sleep apnea HTN (hypertension) AAA (abdominal aortic aneurysm) Atrial fibrillation Perianal fistula Diabetes Surgical History Hx of surgical procedure (~06/08/24) Hx of left cataract extraction Hx of cystoscopy H/O colonoscopy Social History Are you a primary primary care sales representative to a significant other at home: No Do you presently have visiting nurse or other home services: No Patient Tobacco Use Status: Former Tobacco user Tobacco use type: Cigarette Review of Systems Const Denies chills and Denies fever(s) Card Denies chest pain, Denies dyspnea and Denies dyspnea on exertion Resp Denies cough, Denies dyspnea and Denies dyspnea on exertion GI Denies hematochezia and Denies change in bowel habits Denies hematuria and Denies difficulty urinating Musc Denies back pain and Denies limited range of motion Neuro Denies focal weakness and Denies convulsions Psych Denies depression and Denies mood swings Physical Exam Vital Signs: Last Vital Signs Pulse 97 08/08/25 13:29 BP 123/65 08/08/25 13:29 BMI result Body Mass Index 36.4 Const General: comfortable and no acute distress Orientation/consciousness: patient oriented x3 Neck Neck: Yes no lymphadenopathy Resp Auscultation: clear to auscultation bilaterally Cardio Rhythm: regular rhythm GI Other: On the right buttock closed with the perianal areas he is note of some vague induration without any fluctuance or any obvious sinus currently. There is no active drainage at this time. Palpation (GI): Soft to palpation, nontender and no guarding Neuro General: patient oriented x3 Assessment & Plan Assessment & Plan (1) Perianal fistula: Code(s): K60.3 - Anal fistula Category: Medical Plan: He has a recurrent area of swelling and drainage. I had already done debridement and excision a subcutaneous fistula last year. I am going to order for a CAT scan of the pelvis to see if there is any area of abscess, or obvious fistulous tract . I then we will see him in the office to discuss if there is any surgical intervention that he may benefit from. He understands the plan. Orders: Orders Creatinine 08/08/25 K60.3 - Anal fistula CT pelvis w IV con 08/08/25 K60.3 - Anal fistula Blood Urea Nitrogen 08/08/25 K61.0 - Anal abscess Coding Level of Care Code Est Pt Level 3 (56217) Diagnoses Perianal fistula K60.3
[2025-08-08 13:29] VITALS: BP 123/65; PULSE 97; BMI 36.4
--- OUTSIDE RECORDS SUMMARY | 2025-08-08 16:03 | XMS_ITS | Data Portability ---
Author Organization [place] - [facility], Allergy Address [address] [address] Care Team Providers Care Rn Orthopedic Name Role Phone TIFF CAPONE Primary Care [...] up in 4 months for routine debridement. [email or web address] Not available 09/20/2024 09:04:56 01/21/2025 01/21/2025 79 year old male with bilateral [facility] for [facility]umen removal. Impacted cerumen removed bilaterally. Bilateral TMs are intact. Follow up in 4 months for routine debridement, or sooner with concerns. [email or web address] Not available 01/21/2025 11:26:58 07/09/2025 07/09/2025 80-year-old male with profound left-sided hearing loss presents for routine cerumen removal. Cerumen impactions were removed from bilateral external auditory canals without difficulty. TMs are normal to inspection. Patient reports hearing returned to baseline. He wears BiCROS technology, and recommend follow-up as needed at the [place] for adjustments. Patient will return in 3 [...] Recorded Time Impacted cerumen of bilateral ears [id number] 9108 Active 2022 Impacted cerumen, bilateral ; Note: Date Diagnosed : 04/04/2023 3:51 PM (H61.23) JOAN ALBARADO PA-C 100 [facility],[address], [address], [facility] - [facility] 14:55:02 Sensorine ural hearing loss of bilateral ears [id number] Active 2022 Sensorine ural hearing loss, bilateral ; Note: Date Diagnosed : 04/04/2023 4:56 PM (H90.3) JOAN ALBARADO PA-C 100 [facility],[address], [address], [facility] - [facility] 14:55:04 Problem Notes None recorded. Procedures Surgical History Date Name Laterality Status Provider Name and Address Organization Details Recorded Time Cerumen removal without microscope bilat completed JOAN ALBARADO PA-C 100 [facility],[address], [address], [facility] - [facility] 07/09/2025 14:53:39 Cerumen removal without microscope bilat completed LEXI RAINEY PA-C 100 [facility],[address], [address], [facility] - [facility] 01/21/2025 11:12:24 4 Cerumen removal without microscope bilat completed LEXI RAINEY PA-C 100 [facility],[place] [address], [place], [address], [place] - [facility] 09/20/2024 09:04:36 4 Cerumen removal with microscope left completed Nadege Lopez [place] - [facility] 07/04/2024 11:06:08 4 Cerumen removal without microscope right completed Nadege Lopez [place] - [facility] 07/04/2024 11:05:50 Imaging Results None recorded. [...] [place] - [facility] 01/21/2025 11:14:16 Date Recorded Body height Body mass index (BMI) Body weight Provider Name and Address Organization Details Last Updated DateTime 07/04/2024 172.72 cm 35 kg/m2 638577.25 g Myrtle Bran [place] - [facility] 07/04/2024 10:22:57 Date Recorded Body height Body mass index (BMI) Body weight Provider Name and Address Organization Details Last Updated DateTime 07/09/2025 172.72 cm 35 kg/m2 817113.25 g Ltitle De Leon [place] - [facility] 07/09/2025 14:20:29 Date Recorded Body height Body weight Provider Name and Address Organization Details Last Updated DateTime 09/20/2024 172.72 cm 287200.25 g Marina Okeefe [place] - [facility] 09/20/2024 08:52:51 Social History None recorded. Functional Status None recorded. Mental Status None recorded. Family History Nothing Reported. Medical History Condition Response Diabetes Y Hypertension Y High Cholesterol Y Past Encounters Encounter ID Performer Location Encounter Start Date Encounter Closed Date Diagnosis/Indication Diagnosis SNOMED-CT Code Diagnosis ICD10 Code Diagnosis IMO Codes Diagnosis Note [id number] NADEGE LOPEZ PA-C [facility] [address] [place] [address] 07/04/2024 10:10:59 07/04/2024 11:00:57 Impacted cerumen of bilateral ears 7921193976 508303 H61.23 Sensorineu ral hearing loss of bilateral ears 437799388 H90.3 [id number] LEXI RAINEY PA-C [facility] 100 [place] [address] 09/20/2024 08:43:17 09/20/2024 09:16:52 Impacted cerumen of bilateral ears 8991912493 152850 H61.23 [id number] LEXI RAINEY PA-C [facility] [address] [place] [address] 01/21/2025 11:09:38 01/21/2025 11:26:06 Impacted cerumen of bilateral ears 6835642216 409613 H61.23 [id number] JOAN ALBARADO PA-C [facility] [address] [place] [address] 07/09/2025 14:16:33 07/09/2025 14:41:14 Impacted cerumen of bilateral ears 8110235055 115016 H61.23 Sensorineu ral hearing loss of bilateral ears 009318852 H90.3 Health Concerns Section Related Observation LastModified by Organization Detai ls LastModified Time None Recorded Concern Status LastModified by Organization Details LastModified Time None Recorded Advance Directives Directive None Recorded Payers Insurance Date Sequence Insurance Name Policy Number Policy Reeves Covered Member ID Reeves Member ID Guarantor Name 07/09/2025 1 [facility] (MEDICARE REPLACEMENT/A DVANTAGE - HMO) [id number] Ignacio King [id number] Ignacio King Notes Date Note Type Note [...] otalgia and otorrhea. LAURA BALLESTEROS MD 100 [facility],[address], [address], [facility] - [facility] 07/04/2024 12:40:29 09/20/2024 text/html ROS as noted in the [facility] 79 year old male presents for cerumen removal. History of profound left sided hearing loss. [facility] Denies otalgia, otorrhea, or hearing loss. TON BENJAMIN MD 100 [facility],[address], [address], [facility] - [facility] 09/21/2024 07:47:45 01/21/2025 text/html ROS as noted in the [facility] 79 year old male presents for cerumen removal. History of profound left sided hearing loss. [facility]. Reports intermittent itching of the ears, but denies otalgia, otorrhea, or hearing loss. TON BENJAMIN MD 100 [facility],[address], [address], [facility] 01/22/2025 16:24:19 07/09/2025 text/html ROS as noted in the [facility] 80-year-old male with profound left-sided hearing loss presents for routine cerumen removal. He wears BiCROS [facility]. He reports right sided ear itchiness. No other acute concerns. TON BENJAMIN MD 100 [facility],[address], [address], [facility] - [facility] 07/15/2025 13:08:21
--- OUTSIDE RECORDS SUMMARY | 2025-08-08 16:03 | XMS_ITS | Clinical Summary ---
Author Organization [facility] Address [address] [place] [address] Phone Care Team Providers Care Retail Equipment Associate Name Role Phone Sydney Bolanos MD Primary Care Provider [phone] Encounters Date Type Department Care Team Description 07/24/[address] [place] [address] Sydney Bolanos MD 07/24/[address] [place] [address] Sydney Bolanos MD from Last 3 Months Surgical History Surgery Date Site/Laterality Comments CYSTOSCOPY PROCEDURE: HISTORICAL CYSTOSCOPY Medical History Medical History Date Comments Abdominal aortic aneurysm (A AA) greater than 39 mm in diameter ([facility]/HCC V24) 09/28/2018 DX:Abdominal aort ic aneurysm (AAA) greater than 39 mm in diameter (HCC) A-fib ([facility]/HCC V24, CMS/HCC V28) 03/20/2019 DX:A-fib (HCC) HTN (hypertension) 03/20/2019 DX:HTN (hyper tension) Hypercholesteremia 03/20/2019 DX:Hyperchole steremia Diabetes mellitus type 2, un complicated (CMS/HCC V24, CMS/HCC V28) 03/20/2019 DX:Diabetes mellitus type 2 , uncomplicated ([facility]); COMMENT: Diabetes listed on [facility] list. Hypertension DX:Hypertension Family History Medical [...] 2025 , 07/03/2020, 06/15/2017, Additional history exists Colorectal Cancer Screening: Colonoscopy Discontinued 06/30/2015, 02/25/2012, 01/20/2007 HIB Vaccines Aged Out No longer eligi [...] on patient's age to complete this topic Procedures Procedure Name Priority Date/Time Associated Diagnosis Comments EXTERNAL COLONOSCOPY REPORT Routine 06/30/2015 1:07 PM EDT from Last 3 Months or Most Recently Relevant to Health Maintenance Results * External Colonoscopy Report (06/30/2015 1:07 PM EDT) Anatomical Region Laterality Modality Endoscopy Historical Provider GI~PROCEDURE ORDERABLES F inal Result from Last 3 Months or Most Recently Relevant to Health Maintenance Insurance [employer] MEDICARE Care Teams Retail Equipment Associate Relationship Specialty Start Date End Date Sydney Bolanos MD [address] [place] [address] PCP - General Internal Medicine 10/04/12
== END 2025-08-08 13:42 | disposition home or self-care (01) ==
LOC: HO.HGS 13:09
PROVIDERS: PCP Internal Medicine; Visit Provider Surgery
DX: K60.30 Anal fistula, unspecified (principal)
CPT/HCPCS: 99213

== ENCOUNTER 2025-08-08 13:08 | Outpatient (REF) | payer MEDICARE, SELFPAY ==
[2025-08-08 15:27] LABS: Blood Urea Nitrogen 22 mg/dL (9-16); Estimated Glomerular Filt Rate > 60
== END 2025-08-08 13:09 | disposition home or self-care (01) ==
LOC: HO.LAB 13:08
PROVIDERS: PCP Internal Medicine; Visit Provider Surgery
DX: K60.30 Anal fistula, unspecified (principal)
CPT/HCPCS: 36415; 82565; 84520; 99212

== ENCOUNTER 2025-08-12 09:18 | Outpatient (REF) | payer MEDICARE, SELFPAY ==
--- NOTE | ~2025-08-12 | US_ITS ---
CLINICAL HISTORY: I71.43 - Infrarenal abdominal aortic aneurysm, without rupture US Abdomen (AAA) COMPARISON: US AAA dated 07/05/24 at 10:05 EDT FINDINGS: Aorta proximal 2.8 cm AP. Obscured on transverse dimension. Previously measured 2.4 x 3.7 cm. Aorta mid 2.5 x 2.6 cm, previously measured 2.4 x 2.8 cm. Aorta distal 4.5 x 4.5 cm with peak systolic velocity of 57 cm/sec, previously measured 4.4 x 4.8 cm. Right common iliac artery 2.3 x 2.0 cm, previously measured 1.7 x 2.1 cm. Left common iliac artery 2.4 x 1.9 cm, previously measured 2.2 x 2.6 cm. IMPRESSION: 1. Stable abdominal aortic aneurysm measuring up to 4.5 cm. 2. Bilateral common iliac artery aneurysms measuring up to 2.3 cm on the right and 2.4 cm on the left. This document has been electronically signed by: Jaguar Yung MD on 08/12/2025 15:16:06
--- OUTSIDE RECORDS SUMMARY | 2025-08-12 10:22 | XMS_ITS | Data Portability ---
Author Organization [place] - [facility], Allergy Address [address] [address] Care Team Providers Care Color Dipper Name Role Phone TIFF CAPONE Primary Care [...] up in 4 months for routine debridement. [email or web address] Not available 09/20/2024 09:04:56 01/21/2025 01/21/2025 79 year old male with bilateral hearing [facility] presents for cerumen removal. Impacted cerumen removed bilaterally. Bilateral TMs are intact. Follow up in 4 months for routine debridement, or sooner with concerns. [email or web address] Not available 01/21/2025 11:26:58 07/09/2025 07/09/2025 80-year-old male with profound left-sided hearing loss presents for routine cerumen removal. Cerumen impactions were removed from bilateral external auditory canals without difficulty. TMs are normal to inspection. Patient reports hearing returned to baseline. He wears BiCROS technology, and recommend follow-up as needed at the [place] for adjustments. Patient will return in 3 [...] Recorded Time Impacted cerumen of bilateral ears [id number] 9108 Active 2022 Impacted cerumen, bilateral ; Note: Date Diagnosed : 04/04/2023 3:51 PM (H61.23) JOAN ALBARADO PA-C 100 [facility],[address], [address], [facility] - [facility] 14:55:02 Sensorine ural hearing loss of bilateral ears 542124786 Active 2022 Sensorine ural hearing loss, bilateral ; Note: Date Diagnosed : 04/04/2023 4:56 PM (H90.3) JOAN ALBARADO PA-C 100 [facility],[address], [address], [facility] - [facility] 14:55:04 Problem Notes None recorded. Procedures Surgical History Date Name Laterality Status Provider Name and Address Organization Details Recorded Time Cerumen removal without microscope bilat completed JOAN ALBARADO PA-C 100 [facility],[address], [address], [facility] - [facility] 07/09/2025 14:53:39 Cerumen removal without microscope bilat completed LEXI RAINEY PA-C 100 [facility],[address], [address], [facility] - [facility] 01/21/2025 11:12:24 4 Cerumen removal without microscope bilat completed LEXI RAINEY PA-C 100 [facility],[place] [address], [place], [address], [place] - [facility] 09/20/2024 09:04:36 4 Cerumen removal with microscope left completed Nadege Lopez [place] - [facility] 07/04/2024 11:06:08 4 Cerumen removal without microscope right completed Nadege Lopez [place] - [facility] 07/04/2024 11:05:50 Imaging Results None recorded. [...] [place] - [facility] 01/21/2025 11:14:16 Date Recorded Body height Body mass index (BMI) Body weight Provider Name and Address Organization Details Last Updated DateTime 07/04/2024 172.72 cm 35 kg/m2 406740.25 g Myrtle Bran [place] - [facility] 07/04/2024 10:22:57 Date Recorded Body height Body mass index (BMI) Body weight Provider Name and Address Organization Details Last Updated DateTime 07/09/2025 172.72 cm 35 kg/m2 752467.25 g Little De Leon [place] - [facility] 07/09/2025 14:20:29 Date Recorded Body height Body weight Provider Name and Address Organization Details Last Updated DateTime 09/20/2024 172.72 cm 044560.25 g Marina Okeefe [place] - [facility] 09/20/2024 08:52:51 Social History None recorded. Functional Status None recorded. Mental Status None recorded. Family History Nothing Reported. Medical History Condition Response Diabetes Y Hypertension Y High Cholesterol Y Past Encounters Encounter ID Performer Location Encounter Start Date Encounter Closed Date Diagnosis/Indication Diagnosis SNOMED-CT Code Diagnosis ICD10 Code Diagnosis IMO Codes Diagnosis Note [id number] NADEGE LOPEZ PA-C [facility] [address] [place] [address] 07/04/2024 10:10:59 07/04/2024 11:00:57 Impacted cerumen of bilateral ears [id number] 575011 H61.23 Sensorineu ral hearing loss of bilateral ears 938075519 H90.3 [id number] LEXI RAINEY PA-C [facility] [address] [place] [address] 09/20/2024 08:43:17 09/20/2024 09:16:52 Impacted cerumen of bilateral ears 1814468531 275625 H61.23 [id number] LEXI RAINEY PA-C [facility] [address] [place] [address] 01/21/2025 11:09:38 01/21/2025 11:26:06 Impacted cerumen of bilateral ears 7729698769 671742 H61.23 [id number] JOAN ALBARADO PA-C [facility] [address] [place] [address] 07/09/2025 14:16:33 07/09/2025 14:41:14 Impacted cerumen of bilateral ears 5006617724 098620 H61.23 Sensorineu ral hearing loss of bilateral ears 935382932 H90.3 Health Concerns Section Related Observation LastModified by Organization Detai ls LastModified Time None Recorded Concern Status LastModified by Organization Details LastModified Time None Recorded Advance Directives Directive None Recorded Payers Insurance Date Sequence Insurance Name Policy Number Policy Reeves Covered Member ID Reeves Member ID Guarantor Name 07/09/2025 1 [facility] (MEDICARE REPLACEMENT/A DVANTAGE - HMO) [id number] Ignacio King [id number] Ignacio King Notes Date Note Type Note [...] otalgia and otorrhea. LAURA BALLESTEROS MD 100 [facility],[address], [address], [facility] - [facility] 07/04/2024 12:40:29 09/20/2024 text/html ROS as noted in the [facility] 79 year old male presents for cerumen removal. History of profound left sided hearing loss. [facility] Denies otalgia, otorrhea, or hearing loss. TON BENJAMIN MD 100 [facility],[address], [address], [facility] - [facility] 09/21/2024 07:47:45 01/21/2025 text/html ROS as noted in the [facility] 79 year old male presents for cerumen removal. History of profound left sided hearing loss. [facility]. Reports intermittent itching of the ears, but denies otalgia, otorrhea, or hearing loss. TON BENJAMIN MD 100 [facility],[address], [address], [facility] - [facility] 01/22/2025 16:24:19 07/09/2025 text/html ROS as noted in the [facility] 80-year-old male with profound left-sided hearing loss presents for routine cerumen removal. He wears [facility]CROS [facility]. He reports right sided ear itchiness. No other acute concerns. TON BENJAMIN MD 100 [facility],[address], [address], [facility] - [facility] 07/15/2025 13:08:21
--- OUTSIDE RECORDS SUMMARY | 2025-08-12 10:22 | XMS_ITS | Clinical Summary ---
Author Organization [facility] Address [address] [place] [address] Phone Care Team Providers Care Automatic Presser Name Role Phone Sydney Bolanos MD Primary Care Provider [phone] Encounters Date Type Department Care Team Description 07/24/[address] [place] [address] Sydney Bolanos MD 07/24/[address] [place] [address] Sydney Bolanos MD from Last 3 Months Surgical History Surgery Date Site/Laterality Comments CYSTOSCOPY PROCEDURE: HISTORICAL CYSTOSCOPY Medical History Medical History Date Comments Abdominal aortic aneurysm (A AA) greater than 39 mm in diameter ([facility] V24) 09/28/2018 DX:Abdominal aort ic aneurysm (AAA) greater than 39 mm in diameter (HCC) A-fib ([facility]/HCC V24, CMS/HCC V28) 03/20/2019 DX:A-fib (HCC) HTN (hypertension) 03/20/2019 DX:HTN (hyper tension) Hypercholesteremia 03/20/2019 DX:Hyperchole steremia Diabetes mellitus type 2, un complicated (CMS/HCC V24, CMS/HCC V28) 03/20/2019 DX:Diabetes mellitus type 2 , uncomplicated ([facility]); COMMENT: Diabetes listed on [facility] list. Hypertension DX:Hypertension Family History Medical [...] Maintenance Insurance [employer] MEDICARE Care Teams Automatic Presser Relationship Specialty Start Date End Date Sydney Bolanos MD [address] [place] [address] PCP - General Internal Medicine 10/04/12
== END 2025-08-12 09:19 | disposition home or self-care (01) ==
LOC: HO.US 09:18
PROVIDERS: PCP Internal Medicine; Visit Provider Surgery Vascular Surgery
DX: I71.43 Infrarenal abdominal aortic aneurysm, without rupture (principal)
CPT/HCPCS: 76706

== ENCOUNTER → 2025-08-12 09:24 | Outpatient (BNV) | payer MEDICARE, SELFPAY | PROVIDERS: PCP Internal Medicine; Visit Provider Radiology Diagnostic Radiology | DX: I71.43 Infrarenal abdominal aortic aneurysm, without rupture (principal) | CPT/HCPCS: 76706 ==

== ENCOUNTER 2025-08-29 10:43 | Outpatient (AMB) | payer MEDICARE, SELFPAY ==
[2025-08-29 10:53] LABS: Prothrombin Time Whole Bld POC 35.9 sec (11.1-13.5); ~PT, ~INR - Anti Coag Clinic 3.0 (0.9-1.1)
--- NOTE | 2025-08-29 10:58 | MHC.OFFVISCO ---
Intake Intake Visit Reasons: Anticoagulation Allergies No Known Allergies Allergy (Verified 08/29/25 10:48) Medication List - Last Reconciled 08/29/25 by Irlanda Locke RN diltiazem HCl ER 180 mg PO QAM [Donut seat cushion As directed] hydrochlorothiazide 25 mg PO QAM hydrocortisone 2.5% ME QID PRN insulin glargine (Lantus Solostar U-100 Insulin) 25 units subcut BEDTIME lisinopril 5 mg PO QAM metformin 1,000 mg PO BID metoprolol succinate ER 200 mg PO QAM omeprazole 20 mg PO QAM simvastatin 40 mg PO BEDTIME tirzepatide (Mounjaro) 2.5 mg subcut QWEEK warfarin 5 mg See Protocol PO BEDTIME Nursing Note INR: 3.0 in therapeutic range Medications and supplements reviewed No changes in health, diet, medications, or supplements, Denies any signs and symptoms of bleeding or bruising or clotting. Bleeding, bruising, clotting discussed Nutritional guidance given- greens today and weekly Dose: keep same dose 7.5mg x 2 days/ 5mg x 5 days F/U INR: 1 month Patient verbalizes understanding of instructions given Anti-Coag Initial Assessment Social Hx Patient Tobacco Use Status: Former Tobacco user Tobacco use type: Cigarette Alcohol intake frequency: does not drink Coding Level of Care Code Est Patient Level 1 Diagnoses Current use of anticoagulant therapy Z79.01 Results AMB INR Fingerstick AMB INR Fingerstick 3.0 Last Edit by Irlanda Locke RN on 08/29/25 10:55 MANUAL ENTRY Assessment & Plan Assessment & Plan (1) Current use of anticoagulant therapy: Code(s): Z79.01 - exterminator termite (current) use of anticoagulants Category: Medical
--- OUTSIDE RECORDS SUMMARY | 2025-08-29 16:09 | XMS_ITS | Clinical Summary ---
Author Organization [facility] Address [address] [place] [address] Phone Care Team Providers Care Solidworks Drafter Name Role Phone Sydney Bolanos MD Primary Care Provider [phone] Encounters Date Type Department Care Team Description 07/24/[address] [place] [address] Sydney Bolanos MD 07/24/[address] [place] [address] Sydney Bolanos MD from Last 3 Months Surgical History Surgery Date Site/Laterality Comments CYSTOSCOPY PROCEDURE: HISTORICAL CYSTOSCOPY Medical History Medical History Date Comments Abdominal aortic aneurysm (A AA) greater than 39 mm in diameter ([facility]24) 09/28/2018 DX:Abdominal aort ic aneurysm (AAA) greater than 39 mm in diameter (HCC) A-fib ([facility]/HCC V24, [facility]/HCC V28) 03/20/2019 DX:A-fib (HCC) HTN (hypertension) 03/20/2019 DX:HTN (hyper tension) Hypercholesteremia 03/20/2019 DX:Hyperchole steremia Diabetes mellitus type 2, un complicated (CMS/HCC V24, CMS/HCC V28) 03/20/2019 DX:Diabetes mellitus type 2 , uncomplicated (HCC); COMMENT: Diabetes listed on PMH list. Hypertension DX:Hypertension Family History Medical History Relation Name Comments Stroke Father Other: cancer Mother Relation Name Status Comments Father Mother Social History Tobacco Use Types Packs/Day Years Used Date Smoking Tobacco: Former Cigarettes 0 Q uit: 10/10/1998 Smokeless Tobacco: Never Alcohol [...] Risk Assessment 09/07/2022 Hepatitis C Screening 09/07/2022 Social Influencers of Health Screening 09/07/2022 Diabetes: Annual Urine Albumin-Creatinine Ratio (uACR) 09/21/2022 Diabetes: Blood Sugar Control Test (HGBA1C) 09/21/2022 Hypertension/CHF/CAD Annual BMP Blood Test 09/21/2022 Depression Screening 10/10/2024 COVID-19 Vaccine (3 - 2024- season) 2025 12/25/2020, 11/27/2020 Influenza Vaccine (#1) 2025 2, 07/03/2020, 06/15/2017, Additional history exists Colorectal Cancer [...] PM EDT) Anatomical Region Laterality Modality Endoscopy us Historical Provider GI~PROCEDURE ORDERABLES F inal Result from Last 3 Months or Most Recently Relevant to Health Maintenance Care Teams Solidworks Drafter Relationship Specialty Start Date End Date Sydney Bolanos MD [address] [place] [address] PCP - General Internal Medicine 10/04/12
== END 2025-08-29 11:01 | disposition home or self-care (01) ==
LOC: HO.ACS 10:43
PROVIDERS: PCP Internal Medicine; Visit Provider Internal Medicine Medical Oncology
DX: Z79.01 Long term (current) use of anticoagulants (principal)

== ENCOUNTER → 2025-08-29 10:43 | Outpatient (BNVA) | payer MEDICARE, SELFPAY | PROVIDERS: PCP Internal Medicine; Visit Provider Internal Medicine Medical Oncology | DX: I48.0 Paroxysmal atrial fibrillation (principal); Z51.81 Encounter for therapeutic drug level monitoring; Z79.01 Long term (current) use of anticoagulants | CPT/HCPCS: 85610; 99211 ==

== ENCOUNTER 2025-09-03 09:53 | Outpatient (AMB) | payer MEDICARE, SELFPAY ==
--- NOTE | 2025-09-03 09:59 | MHC.OFFVIS ---
Vital Signs 09/03/25 10:00 Height 5 ft 10 in Weight 254 lb BMI 36.4 Intake Visit Reasons: 1y follow up for AAA U/S 08/12/25 Intake Note: 1 yr follow up AAA s/p US 08/12/25, no complaints Enrollment Services Vice President Required: No Accompanied by: Spouse Allergies No Known Allergies Allergy (Verified 09/03/25 10:04) HPI HPI 1y follow up for AAA U/S 08/12/25: Details: The patient is a 80 year old individual presenting for a follow-up visit for an abdominal aortic aneurysm. A recent ultrasound on August 12 showed the aneurysm is stable at 4.5 cm with no change. The patient reports having diabetes under control. Regarding weight management, the patient initially lost 40 pounds with Ozempic but subsequently regained 20 pounds, stating the medication is no longer effective. The patient has been on Mounjaro for over a month and reports weight stabilization without further gain or loss. The patient also has a history of a recurrent perianal fistula, which was previously operated on by Dr. Deleon. The lesion is described as cyclically closing and appearing healed before opening up again, enlarging, and bleeding. It is located where the patient sits but is reportedly not painful. Currently, the lesion is completely healed, and is awaiting scheduled CT scan of pelvis with IV contrast Now for aneurysm follow-up [facility] Medical History Perianal abscess BPH (benign prostatic hyperplasia) GERD (gastroesophageal reflux disease) Sleep apnea HTN (hypertension) AAA (abdominal aortic aneurysm) Atrial fibrillation Perianal fistula Diabetes Surgical History Hx of surgical procedure (~06/08/24) Hx of left cataract extraction Hx of cystoscopy H/O colonoscopy Social History Are you a primary intensive care nurse to a significant other at home: No Do you presently have visiting nurse or other home services: No Patient Tobacco Use Status: Former Tobacco user Tobacco use type: Cigarette Review of Systems Const All systems reviewed & are unremarkable except as noted in HPI and below Reports no additional complaints ENT Reports Normal hearing present Card Denies chest pain, Denies chest pain at rest, Denies chest pain with activity and Denies pedal edema Resp Denies cough GI Denies abdominal pain Musc Denies abnormal gait, Denies muscle cramps and Denies radiating pain into limb Skin/Breast Denies skin ulcer and Denies wounds Neuro Reports Normal hearing present and Denies abnormal gait Psych Reports no additional complaints Physical Exam Vital Signs: BMI result Body Mass Index 36.4 Const General: cooperative, healthy appearing and comfortable Orientation/consciousness: oriented to person, oriented to place and oriented to time HEENT Head: Yes normal to inspection Neck Neck: Yes normal visual inspection Carotids: no bruits Chest Chest palpation & inspection: normal inspection of the chest Resp Effort & Inspection: normal respiratory effort and able to speak in complete sentences Auscultation: clear to auscultation bilaterally, no crackles, no rales, no rhonchi and no wheezes Cardio Rate: regular rate Rhythm: regular rhythm Heart sounds: S1 normal heart sound present and S2 normal heart sound present Bruits: no carotid bruits Peripheral pulses: Peripheral pulses 2+ throughout GI Inspection: Yes normal to inspection Skin Wounds: no wounds Hair: normal Neuro General: oriented to person, oriented to place and oriented to time Cranial nerves: Yes CN's II-XII intact bilaterally and Yes Normal hearing present Cognition (Neuro): normal cognition Motor exam (neuro): 5/5 motor strength present throughout Extrem Other: venous exam: No significant superficial varicosities or spider telangiectasias, minimal edema General: No clubbing, No cyanosis and No edema Psych Appearance: grossly normal Mental Status: mental status grossly normal Speech and movement: Normal speech and movement present Results Reviewed Results Reviewed: Ultrasound dated 08/12/2025 demonstrates a stable 4.5 cm abdominal aortic aneurysm Assessment & Plan Assessment & Plan (1) AAA (abdominal aortic aneurysm) without rupture: Code(s): I71.4 - Abdominal aortic aneurysm, without rupture Category: Medical Qualifiers: Abdominal aorta location: infrarenal aorta Qualified Code(s): I71.43 - Infrarenal abdominal aortic aneurysm, without rupture Plan: In short patient has radiologic evidence of a AAA on ultrasound of 4.5 cm. We have discussed the pathophysiology of aortic aneurysms and the risk of ruptures. We have discussed rupture risk based on size. In addition we have discussed conservative measures and risk factor modification for prevention of increase in size of the aneurysm. the patient is scheduled for surveillance follow-up in approximately 1 year. Thank you for allowing us to participate in the care of this patient Orders: Orders US abdominal aortic aneurysm 1 Year I71.43 - Infrarenal abdominal aortic aneurysm, without rupture Coding Level of Care Code Est Pt Level 4 (64095) Diagnoses Infrarenal abdominal aortic aneurysm (AAA) without rupture I71.43 Abdominal aorta location: infrarenal aorta
[2025-09-03 10:00] VITALS: BMI 36.4
--- OUTSIDE RECORDS SUMMARY | 2025-09-03 11:44 | XMS_ITS | Clinical Summary ---
Author Organization [facility] Address [address] [place] [address] Phone Care Team Providers Care Property Coordinator Name Role Phone Sydney Bolanos MD Primary Care Provider [phone] Encounters Date Type Department Care Team Description 07/24/[address] [place] [address] Sydney Bolanos MD 07/24/[address] [place] [address] Sydney Bolanos MD from Last 3 Months Surgical History Surgery Date Site/Laterality Comments CYSTOSCOPY PROCEDURE: HISTORICAL CYSTOSCOPY Medical History Medical History Date Comments Abdominal aortic aneurysm (A AA) greater than 39 mm in diameter ([facility] V24) 09/28/2018 DX:Abdominal aort ic aneurysm (AAA) greater than 39 mm in diameter (HCC) A-fib ([facility]/HCC V24, [facility] V28) 03/20/2019 DX:A-fib (HCC) HTN (hypertension) 03/20/2019 [...] Recently Relevant to Health Maintenance Care Teams Property Coordinator Relationship Specialty Start Date End Date Sydney Bolanos MD [address] [place] [address] PCP - General Internal Medicine 10/04/12
--- OUTSIDE RECORDS SUMMARY | 2025-09-03 11:45 | XMS_ITS | Data Portability ---
Author Organization [place] [facility] Address [address] [address] Care Team Providers Care Woolen Suiting Shrinker Name Role Phone TIFF CAPONE Primary Care [...] up in 4 months for routine debridement. [email or web address] Not available 09/20/2024 09:04:56 01/21/2025 01/21/2025 79 year old male with bilateral [facility] for [facility]umen removal. Impacted cerumen removed bilaterally. Bilateral TMs are intact. Follow up in 4 months for routine debridement, or sooner with concerns. [email or web address] Not available 01/21/2025 11:26:58 07/09/2025 07/09/2025 80-year-old male with profound left-sided hearing loss presents for routine cerumen removal. Cerumen impactions were removed from bilateral external auditory canals without difficulty. TMs are normal to inspection. Patient reports hearing returned to baseline. He wears BiCROS technology, and recommend follow-up as needed at the [place] for [place]. Patient will return in 3 [...] Recorded Time Impacted cerumen of bilateral ears [id number] 9108 Active 2022 Impacted cerumen, bilateral ; Note: Date Diagnosed : 04/04/2023 3:51 PM (H61.23) JOAN ALBARADO PA-C [address] [facility],[address], [address], [facility] - [facility] 14:55:02 Sensorine ural hearing loss of bilateral ears [id number] Active 2022 Sensorine ural hearing loss, bilateral ; Note: Date Diagnosed : 04/04/2023 4:56 PM (H90.3) JOAN ALBARADO PA-C 100 [facility],[address], [address], [facility] - [facility] 14:55:04 Problem Notes None recorded. Procedures Surgical History Date Name Laterality Status Provider Name and Address Organization Details Recorded Time Cerumen removal without microscope bilat completed JOAN ALBARADO PA-C [address] [facility],[address], [address], [facility] - [facility] 07/09/2025 14:53:39 Cerumen removal without microscope bilat completed LEXI RAINEY PA-C 100 [facility],[address], [address], [facility] - [facility] 01/21/2025 11:12:24 4 Cerumen removal without microscope bilat completed LEXI RAINEY PA-C [address] [facility],[place] [address], [place], [address], [place] - [facility] 09/20/2024 09:04:36 4 Cerumen removal with microscope left completed Nadege Lopez [place] - [facility] 07/04/2024 11:06:08 4 Cerumen removal without microscope right completed Nadege Lopez [place] - [facility] 07/04/2024 11:05:50 Imaging Results None recorded. [...] [place] [facility] 01/21/2025 11:14:16 Date Recorded Body height Body mass index (BMI) Body weight Provider Name and Address Organization Details Last Updated DateTime 07/04/2024 172.72 cm 35 kg/m2 697581.25 g Myrtle Bran [place] - [facility] 07/04/2024 10:22:57 Date Recorded Body height Body mass index (BMI) Body weight Provider Name and Address Organization Details Last Updated DateTime 07/09/2025 172.72 cm 35 kg/m2 614421.25 g Little De Leon [place] - [facility] 07/09/2025 14:20:29 Date Recorded Body height Body weight Provider Name and Address Organization Details Last Updated DateTime 09/20/2024 172.72 cm 977990.25 g Marina Okeefe [place] - [facility] 09/20/2024 08:52:51 Social History None recorded. Functional Status None recorded. Mental Status None recorded. Family History Nothing Reported. Medical History Condition Response Diabetes Y Hypertension Y High Cholesterol Y Past Encounters Encounter ID Performer Location Encounter Start Date Encounter Closed Date Diagnosis/Indication Diagnosis SNOMED-CT Code Diagnosis ICD10 Code Diagnosis IMO Codes Diagnosis Note [id number] NADEGE LOPEZ PA-C [facility] [address] [place] [address] 07/04/2024 10:10:59 07/04/2024 11:00:57 Impacted cerumen of bilateral ears [id number] 601035 H61.23 Sensorineu ral hearing loss of bilateral ears 714251493 H90.3 [id number] LEXI RAINEY PA-C [facility] [address] [place] [address] 09/20/2024 08:43:17 09/20/2024 09:16:52 Impacted cerumen of bilateral ears [id number] 850827 H61.23 [id number] LEXI RAINEY PA-C [facility] [address] [place] [address] 01/21/2025 11:09:38 01/21/2025 11:26:06 Impacted cerumen of bilateral ears [id number] 902504 H61.23 [id number] JOAN ALBARADO PA-C [facility] [address] [place] [address] 07/09/2025 14:16:33 07/09/2025 14:41:14 Impacted cerumen of bilateral ears 7086861772 643306 H61.23 Sensorineu ral hearing loss of bilateral ears 888948859 H90.3 Health Concerns Section Related Observation LastModified by Organization Detai ls LastModified Time None Recorded Concern Status LastModified by Organization Details LastModified Time None Recorded Advance Directives Directive None Recorded Payers Insurance Date Sequence Insurance Name Policy Number Policy Reeves Covered Member ID Reeves Member ID Guarantor Name 07/09/2025 1 [facility] (MEDICARE REPLACEMENT/A DVANTAGE - HMO) [id number] gInacio King [id number] Ignacio King Notes Date Note Type Note [...] otalgia and otorrhea. LAURA BALLESTEROS MD 100 [facility],[address], [address], [facility] - [facility] 07/04/2024 12:40:29 09/20/2024 text/html ROS as noted in the [facility] 79 year old male presents for cerumen removal. History of profound left sided hearing loss. [facility] Denies otalgia, otorrhea, or hearing loss. TON BENJAMIN MD 100 [facility],[address], [address], [facility] - [facility] 09/21/2024 07:47:45 01/21/2025 text/html ROS as noted in the [facility] 79 year old male presents for cerumen removal. History of profound left sided hearing loss. [facility]. Reports intermittent itching of the ears, but denies otalgia, otorrhea, or hearing loss. TON BENJAMIN MD [address] [facility],[address], [address], [facility] - [facility] 01/22/2025 16:24:19 07/09/2025 text/html ROS as noted in the [facility] 80-year-old male with profound left-sided hearing loss presents for routine cerumen removal. He wears BiCROS [facility]. He reports right sided ear itchiness. No other acute concerns. TON BENJAMIN MD [address] [facility],[address], [address], [facility] - [facility] 07/15/2025 13:08:21
--- OUTSIDE RECORDS SUMMARY | 2025-09-03 11:45 | XMS_ITS | Continuity of Care Document ---
Author Organization [place] - [facility], [facility] Address [address] [place] [address] Care Team Providers Care Credit Union Manager Name Role Phone TIFF CAPONE Primary Care Provider Assessment Encounter Date Assessment Date Assessment LastModified by Organization Details LastModified Time 07/09/2025 07/09/2025 80-year-old male with profound left-sided hearing loss presents for routine cerumen removal. Cerumen impactions were removed from bilateral external auditory canals without difficulty. TMs are normal to inspection. Patient reports hearing returned to baseline. He wears BiCROS technology, and [facility]. Patient will return in 3 [...] Recorded Time Impacted cerumen of bilateral ears [id number] 9108 Active 2022 Impacted cerumen, bilateral ; Note: Date Diagnosed : 04/04/2023 3:51 PM (H61.23) JOAN ALBARADO PA-C [address] [place] [address], [address], [place] [facility] [place] [facility] 14:55:02 Sensorine ural hearing loss of bilateral ears 348854767 Active 2022 Sensorine ural hearing loss, bilateral ; Note: Date Diagnosed : 04/04/2023 4:56 PM (H90.3) JOAN ALBARADO PA-C 100 [facility], [address], [place], [address], [place] [facility] [place] [facility] 14:55:04 Problem Notes None recorded. Procedures Surgical History Date Name Laterality Status Provider Name and Address Organization Details Recorded Time 5 Cerumen removal without microscope bilat completed JOAN ALBARADO PA-C [address] [place] [address],[address], [address], [place] - [facility] [place] 07/09/2025 14:53:39 5 Cerumen removal without microscope bilat completed LEXI RAINEY PA-C [address] [place] [address],[address], [address], [place] [facility] [place] [place] 01/21/2025 11:12:24 4 Cerumen removal without microscope bilat completed LEXI RAINEY PA-C [address] [place] [address],[address], [address], [place] [facility] [place] 09/20/2024 09:04:36 4 Cerumen removal with microscope left completed Merly Michael [place] - [facility] [place] 07/04/2024 11:06:08 4 Cerumen removal without microscope right completed Merly Michael [place] - [facility] [place] 07/04/2024 11:05:50 Imaging Results None recorded. Procedure [...] t Available Vitals Date Recorded Body height Body mass index (BMI) Body weight Provider Name and Address Organization Details Last Updated DateTime 07/09/2025 172.72 cm 35 kg/m2 256466.25 g Little De Leon [place] - [facility] 07/09/2025 14:20:29 Social History None recorded. Functional Status None recorded. Mental Status None recorded. Family History Nothing Reported. Medical History Condition Response Diabetes Y Hypertension Y High Cholesterol Y Past Encounters Encounter ID Performer Location Encounter Start Date Encounter Closed Date Diagnosis/Indication Diagnosis SNOMED-CT Code Diagnosis ICD10 Code Diagnosis IMO Codes Diagnosis Note [id number] JOAN ALBARADO PA-C [facility] [address] [address] 07/09/2025 14:16:33 07/09/2025 14:41:14 Impacted cerumen of bilateral ears [id number] 023384 H61.23 Sensorineu ral hearing loss of bilateral ears 112831986 H90.3 Health Concerns Section Related Observation LastModified by Organization Detai ls LastModified Time None Recorded Concern Status LastModified by Organization Details LastModified Time None Recorded Payers Encounter Date Sequence Insurance Name Policy Number Policy Reeves Covered Member ID Reeves Member ID Guarantor Name 07/09/2025 1 [facility] (MEDICARE REPLACEMENT/A DVANTAGE - HMO) [id number] Ignacio King [id number] Ignacio King Notes Date Note Type Note Provider Name and Address Organization Details Recorded Time 07/09/2025 text/html ROS as noted in the HPI 80-year-old male with profound left-sided hearing loss presents for routine cerumen removal. He [facility] He reports right sided ear itchiness. No other acute concerns. TON BENJAMIN MD [address] [place] [address], [place], [address], [facility] - [facility] 07/15/2025 13:08:21
== END 2025-09-03 10:36 | disposition home or self-care (01) ==
LOC: HO.HVS 09:53
PROVIDERS: PCP Internal Medicine; Visit Provider Surgery Vascular Surgery
DX: I71.43 Infrarenal abdominal aortic aneurysm, without rupture (principal)
CPT/HCPCS: 99214

== ENCOUNTER → 2025-09-03 09:53 | Outpatient (BNVA) | payer MEDICARE, SELFPAY | PROVIDERS: PCP Internal Medicine; Visit Provider Surgery Vascular Surgery | DX: I71.43 Infrarenal abdominal aortic aneurysm, without rupture (principal) | CPT/HCPCS: 99212 ==

== ENCOUNTER 2025-09-26 10:55 | Outpatient (AMB) | payer MEDICARE, SELFPAY ==
[2025-09-26 11:03] LABS: Prothrombin Time Whole Bld POC 34.2 sec (11.1-13.5); ~PT, ~INR - Anti Coag Clinic 2.8 (0.9-1.1)
--- NOTE | 2025-09-26 11:21 | MHC.OFFVISCO ---
Intake Intake Visit Reasons: Anticoagulation Allergies No Known Allergies Allergy (Verified 09/26/25 10:58) Medication List - Last Reconciled 09/26/25 by Linda Mina RN diltiazem HCl ER 180 mg PO QAM [Donut seat cushion As directed] hydrochlorothiazide 25 mg PO QAM hydrocortisone 2.5% SC QID PRN insulin glargine (Lantus Solostar U-100 Insulin) 25 units subcut BEDTIME lisinopril 5 mg PO QAM metformin 1,000 mg PO BID metoprolol succinate ER 200 mg PO QAM omeprazole 20 mg PO QAM simvastatin 40 mg PO BEDTIME tirzepatide (Mounjaro) 2.5 mg subcut QWEEK warfarin 5 mg See Protocol PO BEDTIME Nursing Note NO CP,SOB,DIET/MED CHANGES,FALLS OR SX OF BLEEDING. 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
--- OUTSIDE RECORDS SUMMARY | 2025-09-26 14:10 | XMS_ITS | Clinical Summary ---
Author Organization [facility] Address [address] [place] [address] Phone Care Team Providers Care Credentialing Analyst Name Role Phone Sydney Bolanos MD Primary Care Provider [phone] Encounters Date Type Department Care Team Description 07/24/[address] [place] [address] Sydney Bolanos MD 07/24/[address] [place] [address] Sydney Bolanos MD from Last 3 Months Surgical History Surgery Date Site/Laterality Comments CYSTOSCOPY PROCEDURE: HISTORICAL CYSTOSCOPY Medical History Medical History Date Comments Abdominal aortic aneurysm (A AA) greater than 39 mm in diameter ([facility] V24) 09/28/2018 DX:Abdominal aort ic aneurysm (AAA) greater than 39 mm in diameter (HCC) A-fib ([facility]/HCC V24, [facility] V28) 03/20/2019 DX:A-fib (HCC) HTN (hypertension) 03/20/2019 [...] on file Sexual Orientation Not on file Last Filed Vital Signs Vital Sign Reading [...] Depression Screening 10/10/2024 COVID-19 Vaccine (3 - season) 2025 12/25/2020, 11/27/2020 Influenza Vaccine [...] Recently Relevant to Health Maintenance Care Teams Credentialing Analyst Relationship Specialty Start Date End Date Sydney Bolanos MD [address] [place] [address] PCP - General Internal Medicine 10/04/12
== END 2025-09-26 11:23 | disposition home or self-care (01) ==
LOC: HO.ACS 10:55
PROVIDERS: PCP Internal Medicine; Visit Provider Internal Medicine Medical Oncology
DX: Z79.01 Long term (current) use of anticoagulants (principal)

== ENCOUNTER → 2025-09-26 10:55 | Outpatient (BNVA) | payer MEDICARE, SELFPAY | PROVIDERS: PCP Internal Medicine; Visit Provider Internal Medicine Medical Oncology | DX: I48.0 Paroxysmal atrial fibrillation (principal); Z79.01 Long term (current) use of anticoagulants; Z51.81 Encounter for therapeutic drug level monitoring | CPT/HCPCS: 85610; 99211 ==